=== PATIENT | female | born 1950 | race Caucasian/White ===

== ENCOUNTER 2018-03-17 05:33 | Day surgery (SDC) | payer MEDICARE, SELFPAY ==
[2018-03-17 06:10] VITALS: BP 135/83; PULSE 77; RESP 16; TEMP 36.4; O2SAT 95; BMI 29.2
--- NOTE | 2018-03-17 06:49 | COLBX_PTH ---
PATIENT: GREER WEBB LOC: EN U#:[id number] AGE/SX: 67/F ROOM: RE03/17/[address]: Dr. Ellis Okeefe MD : 1950 BED: DIS: 03/17/2018 SPEC #: [id number] RECD: 03/17/18 13:26 STATUS: ADAMARIS CYNTHIA #: [id number] ISHAN: 03/17/18 06:[address]: Ellis Okeefe DEPT: SURGICAL PATHOLOGY RECD BY: Trevin Hernandez ENTERED: 03/17/18 13:47 SP TYPE: COLON BX OTHR DR: Dr. Mike Mai MD Tissues: Rectum, NOS Procedures: Surgery Specimen Level IV HEADER OPERATION: Colonoscopy with biopsy PRE-OP DIAGNOSIS: Screening TISSUE SUBMITTED: Biopsy polyp rectum MICROSCOPIC DIAGNOSIS Polyp rectum, biopsy: Fragments of hyperplastic polyp. SJ:marion 03/18/18 MICROSCOPIC DESCRIPTION Slides are reviewed. GROSS DESCRIPTION Received in fixative is one container labeled with the patient's name and designated biopsy polyp rectum. The specimen consists of two irregular fragments of light liu soft tissue that in aggregate measure 0.6 x 0.3 x 0.1 cm. The specimen is totally submitted in one cassette. / SJ:marion 03/17/18 TC:1 CPT: 60078
--- NOTE | 2018-03-17 06:56 | PCM.OPRPT ---
Problem List (1) Personal history of colonic polyps Status: Acute (2) Family history of colon cancer in father Status: Acute Report of Operation Date of Procedure: 03/17/18 Pre-Operative Diagnosis: Personal history of colon polyps, family history of colon cancer in her father Post-Operative Diagnosis: Pancolonic diverticulosis, diminutive sessile polyp of the rectum Surgery/Procedure Performed:: Colonoscopy with cold forcep polypectomy Description of Surgical Findings:: Timeout and informed consent was obtained. 67-year-old female was taken to the endoscopy suite. She was placed in a left lateral decubitus position. Throughout the procedure in aliquots she received a total of 80 mg Demerol and 3.5 mg of Versed as intravenous sedation. Digital rectal exam performed. Normal anal tone. Mild hemorrhoidal changes. No mass lesions. Flexible colonoscope inserted the rectum advanced through a tortuous sigmoid colon was then nicely advanced to the transverse colon. By placing the patient supine and using transabdominal pressure the scope was advanced to the cecum. Bowel prep was quite good. The cecum ileocecal valve was nicely achieved. The scope was carefully withdrawn from the ascending transverse descending and sigmoid colon. Pancolonic scattered diverticulosis was identified with more concentrated diverticulosis of the sigmoid. No evidence of acute inflammatory change. The scope was withdrawn to the rectum where diminutive 4 mm sessile polyp identified. Cold forceps was used to sample and eradicate this lesion. The scope was retroflexed. Anorectal verge inspected. Some mild internal hemorrhoids noted. No active inflammation. The scope was placed back in in antegrade viewing position. Excess fluid and air was aspirated free. The procedure was completed with the patient tolerating it well. Impression Pancolonic diverticulosis. More extensive diverticulosis of the sigmoid Diminutive sessile polyp of the rectum Previous colonoscopy suspected to be 5 years ago. Next colonoscopy pending pathology is recommended in 5 years. Cc: Dr. Mai Medications were given 0629. The procedure was started 0632. The cecum was reached at 0639. The procedure was completed at 0652. Ellis Okeefe M.D., F.A.C.S. Type of Anesthesia:: IV Sedation
[2018-03-17 07:00] VITALS: BP 103/53; BP 135/83; PULSE 77; RESP 18; TEMP 36.4; O2SAT 92
[2018-03-17 07:05] VITALS: BP 135/83; BP 91/51; PULSE 67; RESP 18; O2SAT 92
[2018-03-17 07:10] VITALS: BP 109/59; BP 135/83; PULSE 71; RESP 18; O2SAT 93
[2018-03-17 07:16] VITALS: BP 111/54; BP 135/83; PULSE 71; RESP 18; TEMP 36.3; O2SAT 94
== END 2018-03-17 07:40 | disposition home or self-care (01) ==
LOC: EN 05:33 → AC 05:34
PROVIDERS: Family Provider Internal Medicine; PCP Internal Medicine; Visit Provider Surgery
PROC: 0DJD8ZZ Inspection of Lower Intestinal Tract, Via Natural or Artificial Opening Endoscopic (ICD-10-PCS; CPT 45378; principal; 2018-03-17 06:25)
DX: Z12.11 Encounter for screening for malignant neoplasm of colon (principal); K62.1 Rectal polyp; K57.30 Diverticulosis of large intestine without perforation or abscess without bleeding; J44.9 Chronic obstructive pulmonary disease, unspecified; I10 Essential (primary) hypertension; Z79.84 Long term (current) use of oral hypoglycemic drugs; Z79.82 Long term (current) use of aspirin; Z79.899 Other long term (current) drug therapy; I25.2 Old myocardial infarction; Z96.652 Presence of left artificial knee joint; Z86.010 Personal history of colon polyps; Z86.73 Personal history of transient ischemic attack (TIA), and cerebral infarction without residual deficits; Z80.0 Family history of malignant neoplasm of digestive organs
CPT/HCPCS: 45380; 88305; 99152; 99153; J7120

== ENCOUNTER → 2022-04-19 | Outpatient (CLI) | payer MEDICARE, SELFPAY ==
[2022-04-19 12:36] LABS: Basophil# 0.06 X10^3/uL; Basophil% 0.7 % (0-1); Eosinophil# 0.18 X10^3/uL; Eosinophils% 2.1 % (0-5); Hematocrit 41.1 % (37-47); Hemoglobin 13.4 g/dL (12.0-15.0); Lymphocyte % 21.7 % (19-41); Mean Corp Hgb Conc 32.6 g/dL (32-36); Mean Corpuscular Hgb 32.6 pg (27.0-32.0); Mean Platelet Vol. 11.1 fl (6.2-12.0); Monocyte# 0.57 X10^3/uL; Monocyte% 6.5 % (0-10); NRBC Flagged by Analyzer 0 % (0-5); Neutrophil # 6.04 X10^3/uL (2.7-7.7); Neutrophil % 68.8 % (47-70); Platelet Count 242 K/mm3 (150-450); RBC Distribution Width CV 12.5 % (11.6-14.6); RBC Distribution Width SD 45.8 fl (35.1-43.9); Red Blood Count 4.11 M/mm3 (4.2-5.4); White Blood Count 8.8 K/mm3 (4.4-11.0)
[2022-04-19 12:43] LABS: Erythrocyte Sedimentation Rate 18 mm/hr (0-30)
[2022-04-19 13:26] LABS: AST(SGOT) 19 U/L (15-37); Alanine Aminotransfer ALT/SGPT 21 U/L (13-56); Albumin, Serum 3.6 g/dL (3.2-5.0); Alkaline Phosphatase 66 U/L (45-117); Anion Gap 4 (5-15); BUN 23 mg/dL (7-18); BUN/Creat Ratio 36.9 RATIO (10-20); CRP < 2.90 mg/L (0.0-3.0); Calcium,Total 9.2 mg/dL (8.5-10.1); Chloride 109 mmol/L (98-107); Creatinine, Serum 0.62 mg/dL (0.55-1.02); EST Glomerular Filtration Rate 100 mL/min (>60); Est Glom Filt Rate - Afr Amer 121 mL/min (>60); Globulin 3.5 g/dL (2.2-4.2); Glucose 141 mg/dL (74-106); LDH 192 U/L (84-246); Potassium 4.1 mmol/L (3.5-5.1); Protein, Total 7.1 g/dL (6.4-8.2); Sodium Level 140 mmol/L (136-145)
[2022-04-22 13:07] LABS: Anti-Centromere B Ab <0.2 AI (0.0-0.9); Anti-Chromatin <0.2 AI (0.0-0.9); Anti-Jo <0.2 AI (0.0-0.9); Anti-Scleroderma-70 AB <0.2 AI (0.0-0.9); RNP Ab <0.2 AI (0.0-0.9); SJOGREN'S Anti-SS-A test < 0.2 AI (0.0-0.9); SJOGREN'S Anti-SS-B test < 0.2 AI (0.0-0.9); Smith Ab <0.2 AI (0.0-0.9)
[2022-04-22 17:07] LABS: Endomysial Antibody IgA Negative (Negative)
[2022-04-23 13:49] LABS: Immunoglobulin A 122 mg/dL (64-422); t-Transglutaminase IgA <2 U/mL (0-3)
[2022-04-23 14:15] LABS: Anti-dsDNA Ab <1 IU/mL (0-9)
[2022-04-24 05:05] LABS: Albumin 3.8 g/dL (2.9-4.4); Alpha-1-Globulins 0.3 g/dL (0.0-0.4); Alpha-2-Globulins 0.9 g/dL (0.4-1.0); Cytoplasmic Ab (C-ANCA) <1:20 titer (Neg:<1:20); Gamma Globulin 0.9 g/dL (0.4-1.8); Immunoglobulin A 121 mg/dL (64-422); Immunoglobulin E 50 IU/mL (6-495); Immunoglobulin G 891 mg/dL (586-1602); Immunoglobulin M 139 mg/dL (26-217); PROEL- TOTAL PROTEIN 6.8 g/dL (6.0-8.5)
[2022-04-25 12:53] LABS: Perinuclear Ab (P-ANCA) <1:20 titer (Neg:<1:20)
== END | disposition home or self-care (01) ==
LOC: LAB 11:51
PROVIDERS: PCP Internal Medicine; Referring Provider Nurse Practitioner Adult Health; Visit Provider Nurse Practitioner Adult Health
DX: K57.90 Diverticulosis of intestine, part unspecified, without perforation or abscess without bleeding (principal); Z86.010 Personal history of colon polyps
CPT/HCPCS: 36415; 80053; 82784; 82785; 83516; 83615; 84165; 85025; 85652; 86140; 86225; 86235; 86255; 86256; 86334

== ENCOUNTER → 2022-04-23 | Outpatient (CLI) | payer MEDICARE, SELFPAY ==
[2022-04-27 08:19] LABS: Calprotectin, Stool 186 ug/g (0-120)
== END | disposition home or self-care (01) ==
LOC: LABSPEC 08:22
PROVIDERS: PCP Internal Medicine; Referring Provider Nurse Practitioner Adult Health; Visit Provider Nurse Practitioner Adult Health
DX: K57.90 Diverticulosis of intestine, part unspecified, without perforation or abscess without bleeding (principal)
CPT/HCPCS: 83630; 83993

== ENCOUNTER → 2022-05-30 | Outpatient (CLI) | payer MEDICARE, SELFPAY | END | disposition home or self-care (01) | LOC: LABSPEC 11:27 | PROVIDERS: PCP Internal Medicine; Referring Provider Obstetrics & Gynecology; Visit Provider Obstetrics & Gynecology | DX: R30.0 Dysuria (principal) | CPT/HCPCS: 87086 ==

== ENCOUNTER 2022-06-17 05:18 | Day surgery (SDC) | payer MEDICARE, SELFPAY ==
--- NOTE | 2022-06-17 | GASB_PTH ---
PATIENT: GREER WEBB LOC: EN U#:[id number] AGE/SX: 72/F ROOM: RE06/17/[address]: Dr. Ivan Espinoza DO : 1950 BED: DIS: 06/17/2022 SPEC #: [id number] RECD: 06/17/22 10:53 STATUS: ADAMARIS REBarbara #: [id number] ISHAN: 06/17/22 00:[address]: Ivan Espinoza DEPT: SURGICAL PATHOLOGY RECD BY: Bennie Barajas ENTERED: 06/17/22 10:54 SP TYPE: Gastric Bx OTHR DR: Dr. Mike Mai MD Tissues: A - Duodenum, NOS B - Gastric mucous membrane C - Esophageal mucous membrane D - Ileum, NOS E - COLON BIOPSY F - Rectum, NOS Procedures: Special Stain Group II Surgery Specimen Level IV Alcian Blue/PAS (control) HEADER OPERATION: Colonoscopy, EGD (MAC), biopsy, dilation PRE-OP DIAGNOSIS: Diverticular disease, dysphagia TISSUE SUBMITTED: A ? Duodenum biopsy, B ? Gastric body biopsy, C ? Distal esophagus biopsy, D ? Terminal ileum biopsy, E ? Random colonic biopsy, F ? Rectal polyp biopsy MICROSCOPIC DIAGNOSIS A. Duodenum, biopsy: Fragments of duodenal mucosa with mild nonspecific chronic inflammation and congestion. B. Gastric body, biopsy: Mild gastritis. See microscopic description and comment. C. 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 Chronic inflammation and changes consistent with gastroesophageal reflux disease. Negative for dysplasia. See comment. D. Terminal ileum, biopsy: Fragments of small intestinal mucosa, no pathologic diagnosis. E. Colon, random biopsy: Fragments of colonic mucosa, no pathologic diagnosis. F. Rectal polyp, biopsy: Hyperplastic polyp. SJ:marion 06/18/2022 COMMENT B. The results of immunohistochemistry for Helicobacter pylori will be reported separately ([id number]). C. Immunohistochemistry ([id number]) for P53 and Ki-67 will be performed and results will be reported separately. Alcian blue/PAS stain with matched control is used in the evaluation of the specimen. MICROSCOPIC DESCRIPTION Slides are reviewed. B. The specimen shows fragments of gastric mucosa with chronic inflammatory cell infiltrates in the lamina propria consisting of lymphocytes and plasma cells, consistent with mild chronic gastritis. GROSS DESCRIPTION A - Received in fixative is one container labeled with the patient's name and designated duodenum biopsy. The specimen consists of multiple irregular fragments of light liu soft tissue that in aggregate measure 0.4 x 0.4 x 0.1 cm. The specimen is totally submitted in one cassette. B - Received in fixative is one container labeled with the patient's name and designated gastric body biopsy. The specimen consists of multiple irregular fragments of light liu soft tissue that in aggregate measure 1 x 0.3 x 0.1 cm. The specimen is totally submitted in one cassette. C - Received in fixative is one container labeled with the patient's name and designated distal esophagus biopsy. The specimen consists of multiple irregular fragments of light liu soft tissue that in aggregate measure 1 x 0.4 x 0.1 cm. The specimen is totally submitted in one cassette. D - Received in fixative is one container labeled with the patient's name and designated terminal ileum. The specimen consists of multiple irregular fragments of light liu soft tissue that in aggregate measure 1 x 0.3 x 0.1 cm. The specimen is totally submitted in one cassette. E - Received in fixative is one container labeled with the patient's name and designated random colonic biopsy. The specimen consists of multiple irregular fragments of light liu soft tissue that in aggregate measure 1 x 0.5 x 0.1 cm. The specimen is totally submitted in one cassette. F - Received in fixative is one container labeled with the patient's name and designated rectal polyp biopsy. The specimen consists of one irregular fragment of light liu soft tissue that measures 0.2 x 0.2 x 0.1 cm. The specimen is totally submitted in one cassette. / SJ:rg 06/17/2022 TC:3 [facility]: [id number] x6, [id number]
[2022-06-17 05:52] VITALS: BP 143/70; PULSE 64; RESP 16; TEMP 36.2; O2SAT 98; BMI 30.2
[2022-06-17] MEDS: Lactated Ringers 1,000 ML 15 ML IV (06:13)
[2022-06-17 06:20] LABS: Bedside Glucose 143 mg/dL (74-106)
--- NOTE | 2022-06-17 06:30 | IMM_PTH ---
PATIENT: GREER WEBB LOC: EN U#:[id number] AGE/SX: 72/F ROOM: RE06/17/[address]: Dr. Ivan Espinoza DO : 1950 BED: DIS: 06/17/2022 SPEC #: [id number] RECD: 06/17/22 11:02 STATUS: ADAMARIS REBarbara #: [id number] ISHAN: 06/17/22 06:[address]: Ivan Espinoza DEPT: IMMUNOHISTOCHEMISTRY RECD BY: Lucinda Perales ENTERED: 06/17/22 11:02 SP TYPE: IMMUNO OTHR DR: Dr. Mike Mai MD Tissues: B - Stomach, NOS C - Esophagus, NOS Procedures: H Pylori (initial) P53 (initial) KI-67 (add) PHYSICIAN & INSTITUTION [place] [id number] SPECIMEN INFORMATION: Tissue Source: B ? Gastric body biopsy, C ? Distal esophagus biopsy Clinical Info: Diverticular disease, dysphagia Specimen Number: [id number] B & C CPT code: 28805 x2, 17354 METHODOLOGY: Deparaffinized sections of prefer/formalin-fixed tissue or PAP/DQ stained slides are incubated with monoclonal/polyclonal antibodies/oligonucleotide probes. Localization is made via biotin free immunoperoxidase method. Appropriate controls are performed and reacted as expected. Results on target cell population are indicated in the following table: RESULTS: ANTIBODY / CLONE RESULT Block B H Pylori (polyclonal) negative Block C P53 (DO-7) negative Ki-67 (30-9) positive, very low These tests were developed and their performance characteristics determined by [facility]. They may not have been cleared or approved by the U.S. Food and Drug Administration. The FDA has determined that such clearance or approval is not necessary. The above immunohistochemical/dualISH markers are ordered and reviewed by the Pathologist. INTERPRETATION: B. Gastric body, biopsy: Negative for Helicobacter pylori organisms. C. Distal esophagus, biopsy: Negative for dysplasia. SJ:marion 06/19/2022
--- NOTE | 2022-06-17 06:31 | HP.PCM_ITS ---
History and Physical Date of Admission: 06/17/22 GREER WEBB, is a 71 F who presents to the office today for recurrent diverticulitis.? She is accompanied by her friend Mila.? She has had 3 bouts of diverticulitis since becoming ill in mid December.? This started with abdominal pain and diarrhea in December 2021.? Prior to that she had had diverticulitis in 2012 at which time she was hospitalized for a week.? She has never had surgery for diverticulitis. During these bouts of diverticulitis she gets severe pain in the left lower quadrant.? She has been having intermittent constipation at which time she has pain in the mid lower abdomen.? She has been treating that with MiraLAX and senna.? She has had bouts of severe diarrhea, up to 25 bowel movements per day during the times of diarrhea.? No blood per rectum.? She has been on Metamucil which has firmed up the stool, bowels have been back to normal for 2 to 3 weeks now.? She no longer has abdominal pain.? She finally has energy back.? There were times when her upper abdomen felt unsettled and she had discomfort.? She has been doing the brat diet.? Her appetite was decreased while she was sick.? She has lost 10 pounds.? She does not feel constipated in general, but she was found to be constipated in the past when she was initially diagnosed with diverticulitis.? History of C. difficile colitis. CT 12/27/2021 mucosal thickening and perisigmoid fat stranding consistent with diverticulitis CT 02/11/2022 mucosal thickening and perisigmoid fat stranding consistent with di verticulitis 03/29/2022 C. difficile negative History of colon polyps.? Her last colonoscopy was in [address] Okeefe.? She had a hyperplastic polyp at that time.? Her father had colon cancer. 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 ROS Const Constitutional: Positive for weakness; No fatigue ENT ENT: No difficulty swallowing Gastro GI: Positive for constipation; No abdominal pain, belching, bloating, change in bowel habits, change in stool character, coffee ground emesis, cramping, diarrhea, heartburn, difficulty swallowing, feeling full early, excessive flatus, incontinent of stools, Vomiting blood/hematemesis, Blood in stool, loose stools, Black,tarry stools, nausea/dyspepsia, pain with swallowing, vomiting or other Musc Musculoskeletal: Positive for Arthritis; No joint pain Skin Skin: No yellowing of the eye or itchy eyes Neuro Neurology: Positive for weakness Psych Psychiatric: No anxiety and No depression Endo Endocrine: No fatigue Aller/Imm Allergy/Immunologic: No itchy eyes Musa/Lymp Hematologic/Lymphatic: No easy bleeding or easy bruising Exam Const General: cooperative, comfortable and well developed Nutritional Appearance: overweight Orientation: alert, awake and oriented x3 HENMT Head: normal to inspection Eyes General: appearance normal, both eyes and all related structures GI Inspection: normal to inspection Palpation: soft, no hepatosplenomegaly, no masses and nontender Skin General: no jaundice Neuro Speech: speech normal Gait: normal gait Quality Reporting Tobacco Screening ([facility] 138) Smoking Status: Never smoker Assessment and Plan Assessment and Plan (1) Diverticular disease: ?Status:?Acute ?Plan: 71-year-old female with recurrent diverticular disease.? We will do biochemical work-up to evaluate for inflammatory bowel disease.? We discussed diverticular disease, SCAD--segmental colitis associated with diverticulosis.? We will attempt to manage this medically rather than surgically.? Discussed management of possible underlying constipation.? Case discussed with Dr. Espinoza.? Will have her start mesalamine if covered by insurance.? We will get her scheduled for colonoscopy.? I will call her with lab results.? We will look at her CT images from [place]. ? ? ? Orders: Orders Comprehensive Metabolic Profil Today K57.90 - Diverticulosis of intestine, part unspecified, without perforation or abscess without bleeding ? CRP Today K57.90 - Diverticulosis of intestine, part unspecified, without perforation or abscess without bleeding ? LDH Today K57.90 - Diverticulosis of intestine, part unspecified, without perforation or abscess without bleeding ? CBC W/Diff, Automated Today K57.90 - Diverticulosis of intestine, part unspecified, without perforation or abscess without bleeding, Z86.010 - Personal history of colonic polyps ? Erythrocyte Sed Rate Today K57.90 - Diverticulosis of intestine, part unspecified, without perforation or abscess without bleeding ? SIMI Comprehensive Panel Today K57.90 - Diverticulosis of intestine, part unspecified, without perforation or abscess without bleeding ? Calprotectin, Stool Today K57.90 - Diverticulosis of intestine, part unspecified, without perforation or abscess without bleeding ? Stool Lactoferrin/WBC Today K57.90 - Diverticulosis of intestine, part unspecified, without perforation or abscess without bleeding ? ANCA Today K57.90 - Diverticulosis of intestine, part unspecified, without perforation or abscess without bleeding ? Celiac Disease Profile Today K57.90 - Diverticulosis of intestine, part unspecified, without perforation or abscess without bleeding ? Immunoglobulins G/A/M/E Today K57.90 - Diverticulosis of intestine, part unspecified, without perforation or abscess without bleeding ? BORA + Protein Elect, Serum Today K57.90 - Diverticulosis of intestine, part unspecified, without perforation or abscess without bleeding ? I have re-examined the patient. There are no clinical changes since date of exam.
[2022-06-17 07:11] VITALS: BP 121/71; BP 143/70; PULSE 71; RESP 16; TEMP 36.7; O2SAT 95
[2022-06-17 07:15] VITALS: BP 127/70; BP 143/70; PULSE 67; RESP 16; O2SAT 94
--- NOTE | 2022-06-17 07:15 | OP.CCLET_ITS ---
06/17/2022 Mike Mai Re : Upper GI endoscopy procedure for Lyle Cabrera Dear Sergei This procedure was performed on Friday, June 17, 2022. My impressions and recommendations are as follows: Impressions : - LA Grade A reflux esophagitis. Biopsied. - Moderate Schatzki ring. Dilated. - Small hiatal hernia. - Erythematous mucosa in the gastric body. Biopsied. - Erythematous duodenopathy. Biopsied. Recommendations : - Discharge patient to home. - Resume previous diet. - Continue present medications. - Await pathology results. My findings are described in the full procedure note, which is enclosed. If I can be of further assistance, please feel free to contact me at . Sincerely, Ivan Espinoza, 06/17/2022 7:14:04 AM This report has been signed electronically.
--- NOTE | 2022-06-17 07:15 | OP.EGD_ITS ---
Patient Name: Lyle Cabrera Procedure Date: 06/17/2022 6:18 AM Date of : 1950 Age: 72 Procedure: Upper GI endoscopy Indications: Functional Dyspepsia, Dysphagia Providers: Ivan Espinoza DO Referring MD: Mike Mai Medicines: Monitored Anesthesia Care Patient Profile: This is a 72 year old female. Refer to note in patient chart for documentation of history and physical. Patient has symptoms of dysphagia with both liquids and solids. Complications: No immediate complications. Procedure: Pre-Anesthesia Assessment: - Prior to the procedure, a History and Physical was performed, and patient medications and allergies were reviewed. The risks and benefits of the procedure and the sedation options and risks were discussed with the patient. All questions were answered and informed consent was obtained. Patient identification and proposed procedure were verified by the physician in the pre-procedure area. Mental Status Examination: alert and oriented. Airway Examination: normal oropharyngeal airway and neck mobility. Respiratory Examination: clear to auscultation. CV Examination: normal. Prophylactic Antibiotics: The patient does not require prophylactic antibiotics. Prior Anticoagulants: The patient has taken no previous anticoagulant or antiplatelet agents. ASA Grade Assessment: II - A patient with mild systemic disease. After reviewing the risks and benefits, the patient was deemed in satisfactory condition to undergo the procedure. The anesthesia plan was to use moderate sedation / analgesia (conscious sedation). Immediately prior to administration of medications, the patient was re-assessed for adequacy to receive sedatives. The heart rate, respiratory rate, oxygen saturations, blood pressure, adequacy of pulmonary ventilation, and response to care were monitored throughout the procedure. The physical status of the patient was re-assessed after the procedure. After obtaining informed consent, the endoscope was passed under direct vision. Throughout the procedure, the patient's blood pressure, pulse, and oxygen saturations were monitored continuously. The colonoscope was introduced through the mouth, and advanced to the second part of duodenum. The upper GI endoscopy was accomplished without difficulty. The patient tolerated the procedure well. Scope In: 6:40:11 AM Scope Out: 6:48:39 AM Total Procedure Duration Time 0 hours 8 minutes 28 seconds Findings: LA Grade A (one or more mucosal breaks less than 5 mm, not extending between tops of 2 mucosal folds) esophagitis with no bleeding was found 36 to 38 cm from the incisors. Biopsies were taken with a cold forceps for histology. Verification of patient identification for the specimen was done. Estimated blood loss was minimal. A moderate Schatzki ring was found in the lower third of the esophagus. A guidewire was placed and the scope was withdrawn. Dilation was performed with a Savary dilator with no resistance at 54 Fr. The dilation site was examined and showed moderate improvement in luminal narrowing. Estimated blood loss was minimal. A small hiatal hernia was present. Patchy erythematous mucosa without bleeding was found in the gastric body. Biopsies were taken with a cold forceps for histology. Verification of patient identification for the specimen was done. Estimated blood loss was minimal. Patchy mildly erythematous mucosa without active bleeding and with no stigmata of bleeding was found in the first portion of the duodenum. Biopsies were taken with a cold forceps for histology. Verification of patient identification for the specimen was done. Estimated blood loss was minimal. Impression: - LA Grade A reflux esophagitis. Biopsied. - Moderate Schatzki ring. Dilated. - Small hiatal hernia. - Erythematous mucosa in the gastric body. Biopsied. - Erythematous duodenopathy. Biopsied. Recommendation: - Discharge patient to home. - Resume previous diet. - Continue present medications. - Await pathology results. Procedure Code(s): --- Professional --- 39123, Esophagogastroduodenoscopy, flexible, transoral; with insertion of guide wire followed by passage of dilator(s) through esophagus over guide wire 43283, 59,51, Esophagogastroduodenoscopy, flexible, transoral; with biopsy, single or multiple CPT copyright 2017 [employer]. All rights reserved. The codes documented in this report are preliminary and upon creative arts music therapist review may be revised to meet current compliance requirements. Ivan Espinoza DO 06/17/2022 7:14:04 AM This report has been signed electronically. Number of Addenda: 0 Note Initiated On: 06/17/2022 6:18 AM
[2022-06-17 07:20] VITALS: BP 125/67; BP 143/70; PULSE 65; RESP 16; O2SAT 92
[2022-06-17 07:26] VITALS: BP 127/78; BP 143/70; PULSE 67; RESP 16; TEMP 36.7; O2SAT 95
--- NOTE | 2022-06-17 07:38 | OP.COLON_ITS ---
Patient Name: Lyle Cabrera Procedure Date: 06/17/2022 6:49 AM Date of : 1950 Age: 72 Procedure: Colonoscopy Indications: Generalized abdominal pain, Clinically significant diarrhea of unexplained origin Providers: Ivan Espinoza DO Referring MD: Mike Mai Medicines: Monitored Anesthesia Care Patient Profile: This is a 72 year old female. Refer to note in patient chart for documentation of history and physical. Patient has symptoms of dysphagia with both liquids and solids. Last Colonoscopy: date unknown. Unable to locate last colonoscopy report. Complications: No immediate complications. Procedure: Pre-Anesthesia Assessment: - Prior to the procedure, a History and Physical was performed, and patient medications and allergies were reviewed. The risks and benefits of the procedure and the sedation options and risks were discussed with the patient. All questions were answered and informed consent was obtained. Patient identification and proposed procedure were verified by the physician in the pre-procedure area. Mental Status Examination: alert and oriented. Airway Examination: normal oropharyngeal airway and neck mobility. Respiratory Examination: clear to auscultation. CV Examination: normal. Prophylactic Antibiotics: The patient does not require prophylactic antibiotics. Prior Anticoagulants: The patient has taken no previous anticoagulant or antiplatelet agents. ASA Grade Assessment: II - A patient with mild systemic disease. After reviewing the risks and benefits, the patient was deemed in satisfactory condition to undergo the procedure. The anesthesia plan was to use moderate sedation / analgesia (conscious sedation). Immediately prior to administration of medications, the patient was re-assessed for adequacy to receive sedatives. The heart rate, respiratory rate, oxygen saturations, blood pressure, adequacy of pulmonary ventilation, and response to care were monitored throughout the procedure. The physical status of the patient was re-assessed after the procedure. After I obtained informed consent, the scope was passed under direct vision. Throughout the procedure, the patient's blood pressure, pulse, and oxygen saturations were monitored continuously. The colonoscope was introduced through the anus and advanced to the terminal ileum. The terminal ileum, ileocecal valve, appendiceal orifice, and rectum were photographed. Scope In: 6:50:55 AM Scope Withdrawal Time 0 hours 10 minutes 5 seconds Scope Out: 7:04:11 AM Total Procedure Duration Time 0 hours 13 minutes 16 seconds Findings: The perianal and digital rectal examinations were normal. A 5 mm polyp was found in the rectum. The polyp was sessile. The polyp was removed with a cold biopsy forceps. Resection and retrieval were complete. Verification of patient identification for the specimen was done. Estimated blood loss was minimal. A few small and large-mouthed diverticula were found in the recto-sigmoid colon, sigmoid colon and descending colon. There was no evidence of diverticular bleeding. An area of mildly congested mucosa was found in the sigmoid colon, in the transverse colon and in the ascending colon. Biopsies were taken with a cold forceps for histology. Verification of patient identification for the specimen was done. Estimated blood loss was minimal. The terminal ileum appeared normal. Biopsies were taken with a cold forceps for histology. Verification of patient identification for the specimen was done. Estimated blood loss was minimal. Impression: - One 5 mm polyp in the rectum, removed with a cold biopsy forceps. Resected and retrieved. - Diverticulosis in the recto-sigmoid colon, in the sigmoid colon and in the descending colon. There was no evidence of diverticular bleeding. - Congested mucosa in the sigmoid colon, in the transverse colon and in the ascending colon. Biopsied. - The examined portion of the ileum was normal. Biopsied. Recommendation: - Discharge patient to home. - Resume previous diet. - Continue present medications. - Await pathology results. - Repeat colonoscopy in 5 years for surveillance based on pathology results. Procedure Code(s): --- Professional --- 76964, Colonoscopy, flexible; with biopsy, single or multiple CPT copyright 2017 [employer]. All rights reserved. The codes documented in this report are preliminary and upon instrument repairer steam plant review may be revised to meet current compliance requirements. Ivan Espinoza DO 06/17/2022 7:38:03 AM This report has been signed electronically. Number of Addenda: 0 Note Initiated On: 06/17/2022 6:49 AM
--- NOTE | 2022-06-17 07:38 | OP.CCLET_ITS ---
06/17/2022 Mike Mai Re : Colonoscopy procedure for Lyle Cabrera Dear Sergei This procedure was performed on Friday, June 17, 2022. My impressions and recommendations are as follows: Impressions : - One 5 mm polyp in the rectum, removed with a cold biopsy forceps. Resected and retrieved. - Diverticulosis in the recto-sigmoid colon, in the sigmoid colon and in the descending colon. There was no evidence of diverticular bleeding. - Congested mucosa in the sigmoid colon, in the transverse colon and in the ascending colon. Biopsied. - The examined portion of the ileum was normal. Biopsied. Recommendations : - Discharge patient to home. - Resume previous diet. - Continue present medications. - Await pathology results. - Repeat colonoscopy in 5 years for surveillance based on pathology results. My findings are described in the full procedure note, which is enclosed. If I can be of further assistance, please feel free to contact me at . Sincerely, Ivan Espinoza DO 06/17/2022 7:38:03 AM This report has been signed electronically.
[2022-06-17 08:05] VITALS: BP 143/70
== END 2022-06-17 08:06 | disposition home or self-care (01) ==
LOC: EN 05:19 → AC 05:20
PROVIDERS: PCP Internal Medicine; Referring Provider Internal Medicine; Visit Provider Internal Medicine Gastroenterology
PROC: 0DJD8ZZ Inspection of Lower Intestinal Tract, Via Natural or Artificial Opening Endoscopic (ICD-10-PCS; CPT 45378; principal; 2022-06-17 06:25)
DX: K29.70 Gastritis, unspecified, without bleeding (principal); E11.9 Type 2 diabetes mellitus without complications; K22.70 Barrett's esophagus without dysplasia; K62.1 Rectal polyp; K21.00 Gastro-esophageal reflux disease with esophagitis, without bleeding; K44.9 Diaphragmatic hernia without obstruction or gangrene; Z87.19 Personal history of other diseases of the digestive system; Z90.49 Acquired absence of other specified parts of digestive tract; E78.5 Hyperlipidemia, unspecified; I10 Essential (primary) hypertension; Z79.84 Long term (current) use of oral hypoglycemic drugs; Z79.82 Long term (current) use of aspirin; Z79.899 Other long term (current) drug therapy; M51.26 Other intervertebral disc displacement, lumbar region; K59.00 Constipation, unspecified; K22.2 Esophageal obstruction; K57.30 Diverticulosis of large intestine without perforation or abscess without bleeding
CPT/HCPCS: 43239; 43248; 45380; 82962; 88305; 88313; 88341; 88342; J7120; C1769; J2405

== ENCOUNTER 2023-06-24 10:12 | Day surgery (SDC) | payer MEDICARE, SELFPAY ==
[2023-06-24] VITALS (7 sets, daily range): BP systolic 111–139; BP diastolic 60–70; PULSE 63–79; RESP 16–18; TEMP 36.4–36.6; O2SAT 89–100; BMI 32.5
[2023-06-24] MEDS: Lactated Ringers 1,000 ML 15 ML IV (10:37)
[2023-06-24 10:58] LABS: Bedside Glucose 150 mg/dL (74-106)
--- NOTE | 2023-06-24 11:23 | PCM.HP.BLA ---
History and Physical Date of Admission: 06/24/23 72 F who presents to the office today for 2 month f/u SCAD, Rosenthal's. She is doing very well now, she has no GI complaints at this time. SCAD (segmental colitis associated with diverticular disease)??she is successfully titrated off mesalamine; she took mesalamine 2.4 g daily for approximately 2 months, then 1.2 g daily for 1 month. She continues to do very well since discontinuing the mesalamine. Bowels are moving very well, doesn't need anything like fiber or miralax. No abdominal pain. Her symptoms started with abdominal pain and diarrhea in December 2021.? She had 3 bouts of diverticulitis since becoming ill in mid December and establishing with us in April 2022. Prior to that she had had diverticulitis in 2012 at which time she was hospitalized for a week.?She recalls having C diff colitis then too. She has never had surgery for diverticulitis. Workup 04/2022 revealed elevated stool calprotectin, normal inflammatory markers, negative SIMI-comprehensive. She continues on a daily probiotic for history of C. difficile. June 2022 colonoscopy showed diverticula, one hyperplastic polyp; repeat colonoscopy in 5 yrs (June 2027). Her father had colon cancer. Rosenthal's esophagus??On EGD in 06/2022 she had a hiatal hernia, Schatzki ring that was dilated, Rosenthal's w/o dysplasia. She is completing 2 months of pantoprazole 40 mg twice daily, then she will continue on pantoprazole 40 mg every morning indefinitely. Plan is to repeat EGD in June 2023. She has not had any further dysphagia. CT 12/27/2021 mucosal thickening and perisigmoid fat stranding consistent with diverticulitis CT 02/11/2022 mucosal thickening and perisigmoid fat stranding consistent with diverticulitis 03/29/2022 C. difficile negative ROS Const Constitutional: No fatigue ENT ENT: No difficulty swallowing Gastro GI: No abdominal pain, belching, bloating, change in bowel habits, change in stool character, coffee ground emesis, constipation, cramping, diarrhea, heartburn, difficulty swallowing, feeling full early, excessive flatus, incontinent of stools, Vomiting blood/hematemesis, Blood in stool, loose stools, Black,tarry stools, nausea/dyspepsia, pain with swallowing, vomiting or other Musc Musculoskeletal: No joint pain Skin Skin: No yellowing of the eye or itchy eyes Psych Psychiatric: No anxiety and No depression Endo Endocrine: No fatigue Aller/Imm Allergy/Immunologic: No itchy eyes Musa/Lymp Hematologic/Lymphatic: No easy bleeding or easy bruising Exam Const General: cooperative, healthy appearing and comfortable Orientation: alert, awake and oriented x3 Quality Reporting Tobacco Screening ([facility] 138) Smoking Status: Never smoker Assessment and Plan Assessment and Plan (1) Segmental colitis associated with diverticulosis: Status: Acute Plan: We reviewed diagnoses of diverticulitis, SCAD. Recommendation is to keep the bowels moving well, prevent constipation in order to prevent recurrence of diverticulitis. ScaD was successfully treated with a course of mesalamine. She will be due for colonoscopy in June 2027. Continue daily probiotic because of history of C. difficile colitis. (2) Rosenthal's esophagus: Status: Acute Plan: Continue pantoprazole 40 mg every morning indefinitely because of hiatal hernia, reflux esophagitis, and Rosenthal's esophagus without dysplasia. Plan is to repeat EGD in June 2023 with office follow-up 2 weeks later. I have examined the patient and the H&P has been reviewed. There are no clinical changes since date of exam.
--- NOTE | 2023-06-24 11:30 | EGD_PTH ---
PATIENT: GREER WEBB LOC: EN U#:[id number] AGE/SX: 73/F ROOM: RE06/24/[address]: Dr. Ivan Espinoza DO : 1950 BED: DIS: 06/24/2023 SPEC #: [id number] RECD: 06/24/23 14:18 STATUS: ADAMARIS CYNTHIA #: [id number] ISHAN: 06/24/23 11:[address]: Ivan Espinoza DEPT: SURGICAL PATHOLOGY RECD BY: Lexy Brizuela ENTERED: 06/25/23 08:31 SP TYPE: EGD BIOPSY MADISON DR: Dr. Mike Mai MD Tissues: Esophagus, NOS Procedures: Special Stain Group II Surgery Specimen Level IV Alcian Blue/PAS (control) HEADER OPERATION: EGD ([facility]), biopsy PRE-OP DIAGNOSIS: Rosenthal's esophagus TISSUE SUBMITTED: Distal esophagus biopsy MICROSCOPIC DIAGNOSIS Distal esophagus, biopsy: Gastroesophageal junctional mucosa with mild chronic inflammation. Focal changes of reflux. No evidence of goblet cell metaplasia. See comment. AM:marion 06/26/2023 COMMENT Alcian blue/PAS stain with matched control supports the above diagnosis. MICROSCOPIC DESCRIPTION Slides are reviewed. GROSS DESCRIPTION Received in fixative is one container labeled with the patient's name and designated distal esophagus. The specimen consists of multiple irregular fragments of light liu soft tissue that in aggregate measure 0.7 x 0.7 x 0.1 cm. The specimen is totally submitted in one cassette. / AM:marion 06/25/2023 TC:3 CPT: 23119, 52183
--- NOTE | 2023-06-24 11:38 | OP.CCLET_ITS ---
06/24/2023 Mike Mai Re : Upper GI endoscopy procedure for Lyle Cabrera Dear Sergei This procedure was performed on Saturday, June 24, 2023. My impressions and recommendations are as follows: Impressions : - Esophageal mucosal changes suspicious for Rosenthal's esophagus. Biopsied. - Small hiatal hernia. - No gross lesions in the second portion of the duodenum. Recommendations : - Discharge patient to home. - Resume previous diet. - Continue present medications. - Await pathology results. My findings are described in the full procedure note, which is enclosed. If I can be of further assistance, please feel free to contact me at . Sincerely, Ivan Espinoza, 06/24/2023 11:38:05 AM This report has been signed electronically.
--- NOTE | 2023-06-24 11:38 | OP.EGD_ITS ---
Patient Name: Lyle Cabrera Procedure Date: 06/24/2023 11:12 AM Date of : 1950 Age: 73 Procedure: Upper GI endoscopy Indications: Rosenthal's esophagus, Follow-up of Rosenthal's esophagus Providers: Ivan Espinoza DO Referring MD: Mike Mai Medicines: Monitored Anesthesia Care Patient Profile: This is a 73 year old female. Refer to note in patient chart for documentation of history and physical. Patient has symptoms of chronic heartburn. Complications: No immediate complications. Procedure: Pre-Anesthesia Assessment: - Prior to the procedure, a History and Physical was performed, and patient medications and allergies were reviewed. The risks and benefits of the procedure and the sedation options and risks were discussed with the patient. All questions were answered and informed consent was obtained. Patient identification and proposed procedure were verified by the physician. Mental Status Examination: normal. Respiratory Examination: clear to auscultation. Prophylactic Antibiotics: The patient does not require prophylactic antibiotics. Prior Anticoagulants: The patient has taken no anticoagulant or antiplatelet agents. After reviewing the risks and benefits, the patient was deemed in satisfactory condition to undergo the procedure. The anesthesia plan was to use monitored anesthesia care (MAC). Immediately prior to administration of medications, the patient was re-assessed for adequacy to receive sedatives. The heart rate, respiratory rate, oxygen saturations, blood pressure, adequacy of pulmonary ventilation, and response to care were monitored throughout the procedure. The physical status of the patient was re-assessed after the procedure. After obtaining informed consent, the endoscope was passed under direct vision. Throughout the procedure, the patient's blood pressure, pulse, and oxygen saturations were monitored continuously. The gastroscope was introduced through the mouth, and advanced to the second part of duodenum. The upper GI endoscopy was accomplished without difficulty. The patient tolerated the procedure well. Scope In: 11:29:21 AM Scope Out: 11:32:16 AM Total Procedure Duration Time 0 hours 2 minutes 55 seconds Findings: There were esophageal mucosal changes suspicious for Rosenthal's esophagus present in the lower third of the esophagus. The maximum longitudinal extent of these mucosal changes was 1 cm in length. Mucosa was biopsied with a cold forceps for histology in a targeted manner at intervals of 1 cm in the lower third of the esophagus. One specimen bottle was sent to pathology. Verification of patient identification for the specimen was done. Estimated blood loss was minimal. A small hiatal hernia was present. The cardia and gastric fundus were normal on retroflexion. No gross lesions were noted in the second portion of the duodenum. Impression: - Esophageal mucosal changes suspicious for Rosenthal's esophagus. Biopsied. - Small hiatal hernia. - No gross lesions in the second portion of the duodenum. Recommendation: - Discharge patient to home. - Resume previous diet. - Continue present medications. - Await pathology results. Procedure Code(s): --- Professional --- 90107, Esophagogastroduodenoscopy, flexible, transoral; with biopsy, single or multiple CPT copyright 2021 [employer]. All rights reserved. The codes documented in this report are preliminary and upon laceworker review may be revised to meet current compliance requirements. Ivan Espinoza DO 06/24/2023 11:38:05 AM This report has been signed electronically. Number of Addenda: 0 Note Initiated On: 06/24/2023 11:12 AM
== END 2023-06-24 12:23 | disposition home or self-care (01) ==
LOC: EN 10:12 → AC 10:13
PROVIDERS: PCP Internal Medicine; Referring Provider Internal Medicine; Visit Provider Internal Medicine Gastroenterology
PROC: 0DJ08ZZ Inspection of Upper Intestinal Tract, Via Natural or Artificial Opening Endoscopic (ICD-10-PCS; CPT 43235; principal; 2023-06-24 11:25)
DX: K44.9 Diaphragmatic hernia without obstruction or gangrene (principal); E11.9 Type 2 diabetes mellitus without complications; K22.70 Barrett's esophagus without dysplasia; Z80.0 Family history of malignant neoplasm of digestive organs; K57.30 Diverticulosis of large intestine without perforation or abscess without bleeding; K21.9 Gastro-esophageal reflux disease without esophagitis; E78.5 Hyperlipidemia, unspecified; I10 Essential (primary) hypertension; Z96.652 Presence of left artificial knee joint; Z90.710 Acquired absence of both cervix and uterus; Z90.49 Acquired absence of other specified parts of digestive tract
CPT/HCPCS: 43239; 82962; 88305; 88313; J7120; J2405

== ENCOUNTER → 2024-05-25 | Outpatient (CLI) | payer MEDICARE, SELFPAY ==
--- NOTE | 2024-05-25 09:11 | CT_ITS ---
STUDY: CT ABDOMEN AND PELVIS WITH CONTRAST REASON FOR EXAM: Female, 74 years old. Diverticulitis RADIATION DOSAGE (If Supplied By Facility): CTDIvol = ( 9.61 ) mGy, DLP = ( 761.67 ) mGycm TECHNIQUE: Transaxial images were obtained from the dome of the diaphragm to the symphysis pubis without oral contrast. IV 100mL Isovue-300 was administered. Sagittal and coronal images were reconstructed. Individualized dose optimization techniques were used for this CT. COMPARISON: None. FINDINGS: Minimal increased linear markings at the lung bases suggestive of atelectasis. Minimal degree of anterior pericardial thickening. There is decreased attenuation of the liver consistent with steatosis. The patient is status post cholecystectomy. Normal spleen. Normal pancreas. Normal bilateral adrenal glands. Normal right kidney. Normal left kidney. Normal visualized stomach. Normal small intestine. There is diverticulosis, with thickening of the colon wall, and pericolonic inflammation changes consistent with acute diverticulitis. The appendix is visualized and appears normal. There is diffuse atherosclerotic calcification of the abdominal aorta, without a demonstrated aneurysm. Normal inferior vena cava. Normal retroperitoneum. Normal urinary bladder. Normal abdominal wall. There are diffuse degenerative changes of the visualized lumbar spine. CT/Abdomen/Pelvis WITH Contrast IMPRESSION: There is evidence of sigmoid diverticulitis with sigmoid diverticulosis and thickening of the surrounding mesentery and colonic wall with inflammatory changes.. Fatty position of the liver. Status post cholecystectomy. Electronically Signed: Billy Dong MD at 12:10 EDT ,
[2024-05-25 09:22] LABS: Absolute Lymphocyte Count 1.16 X10^3/uL (0.83-4.51); Absolute Neutrophil Count 5.5 X10^3/uL (2.0-7.7); Basophil# 0.03 X10^3/uL; Basophil% 0.4 % (0-1); Eosinophil# 0.09 X10^3/uL; Eosinophils% 1.2 % (0-5); Hematocrit 41.5 % (37-47); Hemoglobin 13.4 g/dL (12.0-15.0); Lymphocyte # 1.16 X10^3/ul (0.83-4.51); Lymphocyte % 15.6 % (19-41); Mean Corp Hgb Conc 32.3 g/dL (32-36); Mean Platelet Vol. 10.6 fl (6.2-12.0); Monocyte# 0.68 X10^3/uL; Monocyte% 9.1 % (0-10); NRBC Flagged by Analyzer 0 % (0-5); Neutrophil # 5.46 X10^3/uL (2.7-7.7); Neutrophil % 73.3 % (47-70); Platelet Count 258 K/mm3 (150-450); RBC Distribution Width CV 11.6 % (11.6-14.6); RBC Distribution Width SD 42.4 fl (35.1-43.9); Red Blood Count 4.19 M/mm3 (4.2-5.4); White Blood Count 7.5 K/mm3 (4.4-11.0)
[2024-05-25 09:24] LABS: Erythrocyte Sedimentation Rate 26 mm/hr (0-30)
[2024-05-25 09:51] LABS: ALB/GLOB Ratio 0.7 RATIO (0.9-2.4); AST(SGOT) 18 U/L (15-37); Alanine Aminotransfer ALT/SGPT 18 U/L (13-56); Albumin, Serum 3.2 g/dL (3.2-5.0); Alkaline Phosphatase 85 U/L (45-117); Anion Gap 5 (5-15); BUN 28 mg/dL (7-18); BUN/Creat Ratio 31.6 RATIO (10-20); Calcium,Total 9.6 mg/dL (8.5-10.1); Chloride 105 mmol/L (98-107); Creatinine, Serum 0.88 mg/dL (0.55-1.02); EST Glomerular Filtration Rate 66 mL/min (>60); Est Glom Filt Rate - Afr Amer 80 mL/min (>60); Globulin 4.3 g/dL (2.2-4.2); Glucose 148 mg/dL (74-106); LDH 165 U/L (84-246); Potassium 3.8 mmol/L (3.5-5.1); Protein, Total 7.5 g/dL (6.4-8.2); Sodium Level 136 mmol/L (136-145)
== END | disposition home or self-care (01) ==
LOC: CT 08:54
PROVIDERS: PCP Internal Medicine; Referring Provider Student in an Organized Health Care Education/Training Program; Visit Provider Student in an Organized Health Care Education/Training Program
DX: K50.10 Crohn's disease of large intestine without complications (principal); K57.30 Diverticulosis of large intestine without perforation or abscess without bleeding
CPT/HCPCS: 36415; 74177; 80053; 83615; 85025; 85652; 86140; Q9967

== ENCOUNTER 2024-05-26 08:48 | Inpatient (IN) | payer MEDICARE, SELFPAY ==
[2024-05-26] VITALS (9 sets, daily range): BP systolic 115–160; BP diastolic 59–80; PULSE 60–80; RESP 16–18; TEMP 35.9–36.6; O2SAT 94–100; BMI 29.9
--- NOTE | 2024-05-26 09:16 | EDS_ITS ---
HPI HPI - GI History of Present Illness Chief Complaint: Abd Pain Informant: patient Narrative Narrative: Presents to the ED concerns for 3 bloody bowel movements this morning. Patient being treated for diverticulitis, symptoms started 5 days ago. She had pain left lower quadrant. She has had diverticulitis in the past. She called her GI office with Dr. Espinoza on Friday was started on Cipro and Flagyl twice a day. She has been taking this. She follow-up in the office yesterday saw the PA, she was sent for blood work and a CT scan. Today however noted blood in her stool x 3 was concerned. She takes baby aspirin. Denies fevers or chills. Denies any worsening pain in her abdomen. She has had at least 3 other diverticulitis bouts in the past last time was 1.5 years ago and this was her last colonoscopy post the event. Denies lightheaded symptoms states overall feels a little off. PFSH [facility] Medical History Chest pain Insomnia Schatzki's ring Diverticular disease Nocturia more than twice per night Rosenthal's esophagus Segmental colitis associated with diverticulosis History of hiatal hernia History of diverticulitis Gastric reflux Cancer Arthritis Dysphagia Rosacea Bulging lumbar disc Constipation Lower abdominal pain Diabetes type 2, controlled Hyperlipidemia Hypertension Home Medications ?Medication ?Instructions ?Recorded ?Last Taken ?Type Lactobacillus acidophilus 250 1,000 mmu cells PO DAILY 06/12/22 05/25/24 History million cell capsule (Probiotic Acidophilus) aspirin 81 mg tablet,delayed 81 mg PO DAILY 06/12/22 05/25/24 History release losartan 50 mg tablet 50 mg PO DAILY 06/12/22 05/25/24 History multivitamin with minerals-folic 1 tab PO DAILY 06/12/22 05/25/24 History acid 200 mcg chewable tablet (Multivitamin Gummies) pioglitazone 30 mg tablet (Actos) 30 mg PO DAILY 06/12/22 05/25/24 History rosuvastatin 40 mg tablet (Crestor) 40 mg PO QHS 06/12/22 05/25/24 History pantoprazole 40 mg tablet,delayed 40 mg PO QAM #180 tabs 08/12/22 05/25/24 Rx release ciprofloxacin HCl 500 mg tablet 500 mg PO BID 10 days #20 tabs 05/24/24 05/25/24 Rx metronidazole 500 mg tablet 500 mg PO BID 10 days #20 tabs 05/24/24 05/25/24 Rx dicyclomine 10 mg capsule 10 mg PO BID #30 caps 05/25/24 05/25/24 Rx empagliflozin 25 mg tablet 25 mg PO DAILY 05/26/24 05/25/24 History (Jardiance) glipizide 10 mg tablet, extended 10 mg PO BID 05/26/24 05/25/24 History release 24 hr Allergy/AdvReac Type Severity Reaction Status Date / Time neomycin AdvReac Itching Verified 05/12/24 10:58 Family History Grandfather Diabetes Father Colon cancer Mother Cervical cancer Lung cancer Brother COPD (chronic obstructive pulmonary disease) Surgical History H/O wrist surgery Hx of colonoscopy History of esophagogastroduodenoscopy (EGD) Hx of eye surgery squamous cell removed Status post left knee replacement S/P cholecystectomy melanoma removed S/P total hysterectomy S/P arthroscopy of right shoulder S/P left knee arthroscopy Social History Smoking Status: Never smoker alcohol intake: never substance use type: does not use caffeine: No what type of physical activity do you participate in: walking and bicycling frequency: 5-6 times per week seatbelt use: always do you feel safe at home: Yes 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, 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[employer] ED Constitutional Constitutional ED: Denies chills, fever(s) or sweats Eyes Eyes: Denies change in vision ENT ENT ED: Denies dysphagia or sore throat Cardiovascular Cardiovascular: Denies chest pain, leg edema, palpitations or racing heartbeat Respiratory/Chest Respiratory/Chest: Denies cough, dyspnea or dyspnea on exertion Gastrointestinal Gastrointestinal: Reports abdominal pain and other Details: Blood in stools ; Denies diarrhea, nausea or vomiting Genitourinary Genitourinary ED: Denies dysuria, hematuria or urinary frequency Musculoskeletal Musculoskeletal: Denies back pain, extremity pain or neck pain Integumentary Denies rash or wounds Neurologic Neurologic: Denies headache(s), paresthesias or weakness EXAM Physical Exam Const Vital Signs: 05/26/24 08:49 05/26/24 09:18 05/26/24 09:27 Temperature 96.6 F L 96.6 F L Temperature Source Temporal Oral Pulse Rate 80 67 Pulse Rate [Lying] 68 Pulse Rate [Sitting (for 1 minute prior to obtaining)] 66 Pulse Rate [Standing (for 1 minute prior to obtaining)] 77 Respiratory Rate 16 16 Blood Pressure 115/79 149/67 H Blood Pressure [Lying] 123/59 H Blood Pressure [Sitting (for 1 minute prior to obtaining)] 130/64 H Blood Pressure [Standing (for 1 minute prior to obtaining)] 124/71 H Blood Pressure Mean 91 94 Blood Pressure Mean [Lying] 80 Blood Pressure Mean [Sitting (for 1 minute prior to obtaining)] 86 Blood Pressure Mean [Standing (for 1 minute prior to obtaining)] 88 Pulse Ox 100 100 Oxygen Delivery Method Room Air Room Air 05/26/24 10:00 05/26/24 10:49 Temperature 96.6 F L Temperature Source Temporal Pulse Rate 60 68 Pulse Rate [Lying] Pulse Rate [Sitting (for 1 minute prior to obtaining)] Pulse Rate [Standing (for 1 minute prior to obtaining)] Respiratory Rate 16 18 Blood Pressure 140/65 H 160/72 H Blood Pressure [Lying] Blood Pressure [Sitting (for 1 minute prior to obtaining)] Blood Pressure [Standing (for 1 minute prior to obtaining)] Blood Pressure Mean 90 101 Blood Pressure Mean [Lying] Blood Pressure Mean [Sitting (for 1 minute prior to obtaining)] Blood Pressure Mean [Standing (for 1 minute prior to obtaining)] Pulse Ox 98 99 Oxygen Delivery Method Room Air Room Air Positive well nourished and well developed General Appearance ED: well developed and NAD HEENT Reports moist mucous membranes normocephalic and atraumatic Eyes EOMs intact bilaterally and conjunctivae normal General Eye ED: Yes normal appearance of both eyes Neck no lymphadenopathy and supple General: Negative for tenderness Chest Wall Chest: Negative for tenderness Resp normal respiratory effort and normal air movement Effort and Inspection: symmetric chest movement; Negative for respiratory distress Cardio regular rate, regular rhythm and no murmurs Peripheral Pulses: pulses 2+ throughout GI normal to inspection, nondistended, normoactive bowel sounds GI Narrative: Pain in the deep palpation between suprapubic and left lower quadrant region. There is no guarding or rebound. Palpation: Negative for guarding or rebound tenderness present Back/Spine no CVA tenderness and no thoracic nor lumbar tenderness Extremity normal to inspection General Extremety ED: Negative for edema or tenderness General Extremity: Negative for edema Neuro oriented x3 and no sensory deficits noted Sensorium / Orientation: awake and alert Skin no rashes or lesions noted and no wounds MDM MDM MDM Narrative Medical decision making narrative: Interventions / MDM: Differential diagnosis: Sigmoid diverticulitis, rectal bleed Diagnosis considered but do not suspect: No clinical concerns for pneumoperitoneum My EKG interpretation: N/A Imaging independently reviewed and interpreted by myself: N/A External documents reviewed: Outpatient image studies CT scan uncomplicated sigmoid diverticulitis yesterday. Normal white count 7.5 yesterday. Hemoglobin 13.4, creatinine 0.88. Test considered but not ordered:N/A ED course: Patient vital signs stable nontoxic. Concern today developing bloody stools. She had 3 episodes. She had no worsening pain for clinically not concerns for pneumoperitoneum. I will recheck labs, IV fluids, orthostatic vital signs were obtained. She did not take today's dose of antibiotics here for oral Cipro and Flagyl was ordered. 1000: White count 4.9 hemoglobin stable 13.7. Upon standing with her was that she felt weak in the legs. I discussed with her GI doctor, Dr. Espnioza, discussed new blood in her stools today. Did confirm Flagyl should be 3 times a day with Cipro twice a day. With her new bright red blood per rectum today, he recommended and agrees with observation to trend H&H. Also for possible surgery consult for recurrent diverticulitis that she has not seen one in the past. He will see her in the hospital as a consult to follow. I discussed with hospitalist Dr. Doherty for admission. Re-evaluation: stable Disposition discussed with patient/family/significant other: Case discussed with consulting clinician: Gastroenterology, hospitalist This note was generated with [employer] dictation software. It may contain incorrect words, spelling, and punctuation that were not noted in checking the note before signing. Lab Data Attestation: I reviewed the patient's lab results. Labs: Laboratory Results - last 24 hr 05/26/24 09:05 WBC 4.9 RBC 4.32 Hgb 13.7 Hct 42.1 MCV 97.5 MCH 31.7 MCHC 32.5 RDW Std Deviation 41.4 RDW Coeff of Sisi 11.6 Plt Count 296 MPV 10.5 Immature Gran % (Auto) 0.400 Neut % (Auto) 59.0 Lymph % (Auto) 27.1 [place] % (Auto) 8.8 Eos % (Auto) 3.3 Baso % (Auto) 1.4 H Absolute Neuts (auto) 2.9 Absolute Lymphs (auto) 1.33 Nucleated RBC % 0 Sodium 138 Potassium 3.8 Chloride 106 Carbon Dioxide 27.0 Anion Gap 5 BUN 23 H Creatinine 0.82 Est GFR (MDRD) Af Amer 88 Est GFR (MDRD) Non-Af 73 BUN/Creatinine Ratio 28.2 H Glucose 132 H Calcium 9.9 Discharge Plan Dx/Rx/DC Orders Clinical Impression: GI (gastrointestinal bleed), Diverticulitis of sigmoid colon, Weakness Disposition Disposition: Acute Care [facility] Discharge Date/Time: 05/26/24 11:51
[2024-05-26 09:22] LABS: Absolute Lymphocyte Count 1.33 X10^3/uL (0.83-4.51); Absolute Neutrophil Count 2.9 X10^3/uL (2.0-7.7); Basophil# 0.07 X10^3/uL; Basophil% 1.4 % (0-1); Eosinophil# 0.16 X10^3/uL; Eosinophils% 3.3 % (0-5); Hematocrit 42.1 % (37-47); Hemoglobin 13.7 g/dL (12.0-15.0); Lymphocyte # 1.33 X10^3/ul (0.83-4.51); Lymphocyte % 27.1 % (19-41); Mean Corp Hgb Conc 32.5 g/dL (32-36); Mean Corpuscular Hgb 31.7 pg (27.0-32.0); Mean Corpuscular Volume 97.5 fL (81-99); Mean Platelet Vol. 10.5 fl (6.2-12.0); Monocyte# 0.43 X10^3/uL; Monocyte% 8.8 % (0-10); NRBC Flagged by Analyzer 0 % (0-5); Platelet Count 296 K/mm3 (150-450); RBC Distribution Width CV 11.6 % (11.6-14.6); RBC Distribution Width SD 41.4 fl (35.1-43.9); Red Blood Count 4.32 M/mm3 (4.2-5.4); White Blood Count 4.9 K/mm3 (4.4-11.0)
[2024-05-26] MEDS: 0.9% Normal Saline (1000mL) 1,000 ML 1000 ML IV (09:45)
[2024-05-26] MEDS: metroNIDAZOLE 500 MG Tablet PO (09:45)
[2024-05-26] MEDS: Ciprofloxacin 500 MG Tablet PO (09:45)
[2024-05-26 09:53] LABS: Anion Gap 5 (5-15); BUN 23 mg/dL (7-18); BUN/Creat Ratio 28.2 RATIO (10-20); Calcium,Total 9.9 mg/dL (8.5-10.1); Chloride 106 mmol/L (98-107); Creatinine, Serum 0.82 mg/dL (0.55-1.02); EST Glomerular Filtration Rate 73 mL/min (>60); Est Glom Filt Rate - Afr Amer 88 mL/min (>60); Glucose 132 mg/dL (74-106); Potassium 3.8 mmol/L (3.5-5.1); Sodium Level 138 mmol/L (136-145)
--- NOTE | 2024-05-26 10:45 | HP.PCM.HOS_ITS ---
HPI - General General Date of Admission: 05/26/24 Date of Service: 05/26/24 Chief Complaint: ABDOMINAL PAIN HPI Narrative GREER WEBB, is a 74 F with a PMH as outlined who presents via the ED on 05/26/2024 with a compaltn of bloody stools x 3 since morning of admission. She had been started on treatment for diverticulitis 5 days prior to admission. SHe was on PO ciprofloxacin and metronidazole which had been prescribed by her cable swager. She went to see her GI the day before admission and says she had a CT of the abdomen and blood work done. On the day of admission, she noted blood in her stool three times and so decided to come in to the ED. She denied any fever, chills, nausea, vomiting or any other symptoms. Review of systems was otherwise negative. Vitals in the ED were BP of 140/65, MT of 60, RR of 16 and temp of 96.6F. She was saturating at 98% on room air. CBC showed hb of 13.7, WBC of 4.9 and platelets of 296. CHemistry showed sodium of 138, potassium of 3.8, Cr of 0.82. CT of the abdomen and pelvis done on 05/25/2024 showed evidence of sigmoid diverticulitis with sigmoid diverticulosis and thickening of the surrounding mesentery and colonic wall with inflammatory changes. She is being admitted to be managed for lower GI bleed likely due to acute sigmoid diverticulitis. [facility] Medical History Chest pain Insomnia Schatzki's ring Diverticular disease Nocturia more than twice per night Rosenthal's esophagus Segmental colitis associated with diverticulosis History of hiatal hernia History of diverticulitis Gastric reflux Cancer Arthritis Dysphagia Rosacea Bulging lumbar disc Constipation Lower abdominal pain Diabetes type 2, controlled Hyperlipidemia Hypertension Home Medications ?Medication ?Instructions ?Recorded ?Last Taken ?Type Lactobacillus acidophilus 250 1,000 mmu cells PO DAILY 06/12/22 05/25/24 History million cell capsule (Probiotic Acidophilus) aspirin 81 mg tablet,delayed 81 mg PO DAILY 06/12/22 05/25/24 History release losartan 50 mg tablet 50 mg PO DAILY 06/12/22 05/25/24 History multivitamin with minerals-folic 1 tab PO DAILY 06/12/22 05/25/24 History acid 200 mcg chewable tablet (Multivitamin Gummies) pioglitazone 30 mg tablet (Actos) 30 mg PO DAILY 06/12/22 05/25/24 History rosuvastatin 40 mg tablet (Crestor) 40 mg PO QHS 06/12/22 05/25/24 History pantoprazole 40 mg tablet,delayed 40 mg PO QAM #180 tabs 08/12/22 05/25/24 Rx release ciprofloxacin HCl 500 mg tablet 500 mg PO BID 10 days #20 tabs 05/24/24 05/25/24 Rx metronidazole 500 mg tablet 500 mg PO BID 10 days #20 tabs 05/24/24 05/25/24 Rx dicyclomine 10 mg capsule 10 mg PO BID #30 caps 05/25/24 05/25/24 Rx empagliflozin 25 mg tablet 25 mg PO DAILY 05/26/24 05/25/24 History (Jardiance) glipizide 10 mg tablet, extended 10 mg PO BID 05/26/24 05/25/24 History release 24 hr Allergy/AdvReac Type Severity Reaction Status Date / Time neomycin AdvReac Itching Verified 05/12/24 10:58 Family History Grandfather Diabetes Father Colon cancer Mother Cervical cancer Lung cancer Brother COPD (chronic obstructive pulmonary disease) Surgical History H/O wrist surgery Hx of colonoscopy History of esophagogastroduodenoscopy (EGD) Hx of eye surgery squamous cell removed Status post left knee replacement S/P cholecystectomy melanoma removed S/P total hysterectomy S/P arthroscopy of right shoulder S/P left knee arthroscopy Social History Smoking Status: Never smoker alcohol intake: never substance use type: does not use caffeine: No what type of physical activity do you participate in: walking and bicycling frequency: 5-6 times per week seatbelt use: always do you feel safe at home: Yes 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, 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 Constitutional Constitutional: Reports fatigue, malaise and weakness; Denies anorexia, chills or fever(s) Eyes Eyes: Denies change in vision ENT HEENT: Denies dysphagia or headache(s) Cardiovascular Cardiovascular: Denies chest pain, dyspnea on exertion, edema, lightheadedness, orthopnea, palpitations, paroxysmal nocturnal dyspnea, rapid heart rate or syncope Respiratory/Chest Respiratory/Chest: Denies cough, productive cough, shortness of breath at rest or shortness of breath with exertion Gastrointestinal Gastrointestinal: Reports abdominal pain; Denies constipation, diarrhea, nausea or vomiting Genitourinary Genitourinary: Denies dysuria Neurologic Neurologic: Denies confusion, dizziness, focal weakness, headache(s) or numbness Psychiatric Psychiatric: Denies anxiety or depression Vital Signs Vital Signs Vital Signs: 05/26/24 08:49 05/26/24 09:18 05/26/24 09:27 Temperature 96.6 F L 96.6 F L Temperature Source Temporal Oral Pulse Rate 80 67 Pulse Rate [Lying] 68 Pulse Rate [Sitting (for 1 minute prior to obtaining)] 66 Pulse Rate [Standing (for 1 minute prior to obtaining)] 77 Respiratory Rate 16 16 Blood Pressure 115/79 149/67 H Blood Pressure [Lying] 123/59 H Blood Pressure [Sitting (for 1 minute prior to obtaining)] 130/64 H Blood Pressure [Standing (for 1 minute prior to obtaining)] 124/71 H Blood Pressure Mean 91 94 Blood Pressure Mean [Lying] 80 Blood Pressure Mean [Sitting (for 1 minute prior to obtaining)] 86 Blood Pressure Mean [Standing (for 1 minute prior to obtaining)] 88 Pulse Ox 100 100 Oxygen Delivery Method Room Air Room Air 05/26/24 10:00 Temperature 96.6 F L Temperature Source Temporal Pulse Rate 60 Pulse Rate [Lying] Pulse Rate [Sitting (for 1 minute prior to obtaining)] Pulse Rate [Standing (for 1 minute prior to obtaining)] Respiratory Rate 16 Blood Pressure 140/65 H Blood Pressure [Lying] Blood Pressure [Sitting (for 1 minute prior to obtaining)] Blood Pressure [Standing (for 1 minute prior to obtaining)] Blood Pressure Mean 90 Blood Pressure Mean [Lying] Blood Pressure Mean [Sitting (for 1 minute prior to obtaining)] Blood Pressure Mean [Standing (for 1 minute prior to obtaining)] Pulse Ox 98 Oxygen Delivery Method Room Air Physical Exam Const alert, oriented x3 and no apparent distress General Appearance: cooperative HEENT normocephalic, head/scalp atraumatic and hearing grossly normal bilaterally Mouth: moist mucous membranes abnormal Eyes PERRL, EOMs intact bilaterally and conjunctivae normal Neck no lymphadenopathy and supple Resp normal respiratory effort, no retractions and clear to auscultation bilaterally Cardio regular rate, regular rhythm, S1 normal heart sound, S2 normal heart sound and no murmurs GI GI Narrative: abdomen soft, mild tenderness in left lower quadrant, no guarding or rebound tenderness Extremity normal to inspection, full ROM and no clubbing, cyanosis or edema Neuro oriented x3, CN's II-XII intact bilaterally, moves all extremities and no focal motor deficits Sensorium / Orientation: awake and alert Motor Exam: strength 5/5 throughout Psych affect normal Results Lab / Micro Data 05/26/24 09:05 05/26/24 09:05 Labs: Laboratory Results - last 24 hr 05/26/24 09:05: WBC 4.9, RBC 4.32, Hgb 13.7, Hct 42.1, MCV 97.5, MCH 31.7, MCHC 32.5, RDW Std Deviation 41.4, RDW Coeff of Sisi 11.6, Plt Count 296, MPV 10.5, Immature Gran % (Auto) 0.400, Neut % (Auto) 59.0, Lymph % (Auto) 27.1, [place] % (Auto) 8.8, Eos % (Auto) 3.3, Baso % (Auto) 1.4 H, Absolute Neuts (auto) 2.9, Absolute Lymphs (auto) 1.33, Nucleated RBC % 0, Sodium 138, Potassium 3.8, Chloride 106, Carbon Dioxide 27.0, Anion Gap 5, BUN 23 H, Creatinine 0.82, Est GFR (MDRD) Af Amer 88, Est GFR (MDRD) Non-Af 73, BUN/Creatinine Ratio 28.2 H, G lucose 132 H, Calcium 9.9 Assessment & Plan Assessment/Plan (1) Diverticulitis of sigmoid colon: (2) GI (gastrointestinal bleed): PLAN: Plan #Acute lower GI bleed due to acute diverticulitis * Admit to [facility] under observation. * She was admitted with a complaint of abdominal pain and rectal bleeding. She had been diagnosed with acute diverticulitis the day before and started on oral ciprofloxacin and metronidazole by her cable swager. * She had 3 episodes of rectal bleeding on the day of admission and says she notices some clots 2. * CT of the abdomen and pelvis done the day before admission showed acute sigmoid diverticulitis. * Keep NPO. Hydrate with IV fluid normal saline at 125 cc/h. Started on IV pantoprazole. * IV metronidazole and IV ciprofloxacin. * Get blood cultures. Consult gastroenterology. * P.o. Tylenol, p.o. oxycodone and IV morphine as needed for pain. * IV Zofran. * #Hyperlipidemia: On statin Hypertension: BP meds on hold since she is NPO. IV hydralazine as needed. #Type 2 diabetes mellitus: Hold Lantus and oral medications as she is NPO. Insulin sliding scale. Accu-Cheks every 6 hourly DVT prophylaxis: SCDs due to GI bleed. CODE STATUS: Full code * Patient counseled extensively about different types of CODE STATUS including full code, DNR CCA and DNR CCA. * Patient elects to be full code. * Total [id number] time 17 minutes. Charges/Coding Visit Charges Inpatient E&M: 06350 Init Hosp L3 Procedures Hospitalists Procedures: 55665 Advncd Care Plan 30 Min
[2024-05-26] MEDS: Pantoprazole Sodium 40 MG in 0.9% Normal Saline (100mL MB+) 100 ML 330 MG IV ×2 (12:40→20:01)
[2024-05-26] MEDS: 0.9% Normal Saline (1000mL) 1,000 ML 125 ML IV (12:40)
[2024-05-26] MEDS: Ciprofloxacin 400 MG/200 ML BAG 200 MG IV ×2 (13:10→22:16)
[2024-05-26 13:33] LABS: Bedside Glucose 67 mg/dL (74-106)
[2024-05-26 13:47] LABS: Bedside Glucose 81 mg/dL (74-106)
[2024-05-26] MEDS: Dextrose 5%/0.9% NaCl 1,000 ML 125 ML IV (14:55)
--- NOTE | 2024-05-26 17:02 | CON.PCM.GI_ITS ---
HPI Consult Data Date of Consult: 05/26/24 HPI Narrative Reason for Consultation: GI bleed HPI Narrative: GREER WEBB, is a 74 F who presents as an outpatient after being diagnosed with diverticulitis. She thinks she has had at least 4 episodes of diverticulitis. As an outpatient she was started on ciprofloxacin 500 mg twice daily and metronidazole 500 mg twice daily. She came to the hospital because she started developing lower GI bleeding. She never had bleeding per rectum in the past. Her last colonoscopy was back in 2018 and she had polyps at that time. She was concerned at this time because she has a family history of colon cancer. As an outpatient she was also given dicyclomine for cramping. Vitals in the ED were BP of 140/65, CO of 60, RR of 16 and temp of 96.6F. She was saturating at 98% on room air. - CBC showed hb of 13.7, WBC of 4.9 and platelets of 296. - sodium of 138, potassium of 3.8, Cr of 0.82. -CT of the abdomen and pelvis done on 05/25/2024 showed evidence of sigmoid diverticulitis with sigmoid diverticulosis and thickening of the surrounding mesentery and colonic wall with inflammatory changes. She is being admitted to be managed for lower GI bleed likely due to acute sigmoid diverticulitis. [facility], [facility] Medical History Chest pain Insomnia Schatzki's ring Diverticular disease Nocturia more than twice per night Rosenthal's esophagus Segmental colitis associated with diverticulosis History of hiatal hernia History of diverticulitis Gastric reflux Cancer Arthritis Dysphagia Rosacea Bulging lumbar disc Constipation Lower abdominal pain Diabetes type 2, controlled Hyperlipidemia Hypertension Home Medications ?Medication ?Instructions ?Recorded ?Last Taken ?Type Lactobacillus acidophilus 250 1,000 mmu cells PO DAILY 06/12/22 05/25/24 History million cell capsule (Probiotic Acidophilus) aspirin 81 mg tablet,delayed 81 mg PO DAILY 06/12/22 05/25/24 History release losartan 50 mg tablet 50 mg PO DAILY 06/12/22 05/25/24 History multivitamin with minerals-folic 1 tab PO DAILY 06/12/22 05/25/24 History acid 200 mcg chewable tablet (Multivitamin Gummies) pioglitazone 30 mg tablet (Actos) 30 mg PO DAILY 06/12/22 05/25/24 History rosuvastatin 40 mg tablet (Crestor) 40 mg PO QHS 06/12/22 05/25/24 History pantoprazole 40 mg tablet,delayed 40 mg PO QAM #180 tabs 08/12/22 05/25/24 Rx release ciprofloxacin HCl 500 mg tablet 500 mg PO BID 10 days #20 tabs 05/24/24 05/25/24 Rx metronidazole 500 mg tablet 500 mg PO BID 10 days #20 tabs 05/24/24 05/25/24 Rx dicyclomine 10 mg capsule 10 mg PO BID #30 caps 05/25/24 05/25/24 Rx empagliflozin 25 mg tablet 25 mg PO DAILY 05/26/24 05/25/24 History (Jardiance) glipizide 10 mg tablet, extended 10 mg PO BID 05/26/24 05/25/24 History release 24 hr Allergy/AdvReac Type Severity Reaction Status Date / Time neomycin AdvReac Itching Verified 05/12/24 10:58 Family History Grandfather Diabetes Father Colon cancer Mother Cervical cancer Lung cancer Brother COPD (chronic obstructive pulmonary disease) Surgical History H/O wrist surgery Hx of colonoscopy History of esophagogastroduodenoscopy (EGD) Hx of eye surgery squamous cell removed Status post left knee replacement S/P cholecystectomy melanoma removed S/P total hysterectomy S/P arthroscopy of right shoulder S/P left knee arthroscopy Social History Smoking Status: Never smoker alcohol intake: never substance use type: does not use caffeine: No what type of physical activity do you participate in: walking and bicycling frequency: 5-6 times per week seatbelt use: always do you feel safe at home: Yes 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, 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 Constitutional Constitutional: Reports fatigue, malaise and weakness; Denies anorexia, chills or fever(s) Eyes Eyes: Denies change in vision ENT HEENT: Denies dysphagia or headache(s) Cardiovascular Cardiovascular: Denies chest pain, dyspnea on exertion, edema, lightheadedness, orthopnea, palpitations, paroxysmal nocturnal dyspnea, rapid heart rate or syncope Respiratory/Chest Respiratory/Chest: Denies cough, productive cough, shortness of breath at rest or shortness of breath with exertion Gastrointestinal Gastrointestinal: Reports abdominal pain; Denies constipation, diarrhea, nausea or vomiting Genitourinary Genitourinary: Denies dysuria Neurologic Neurologic: Denies confusion, dizziness, focal weakness, headache(s) or numbness Psychiatric Psychiatric: Denies anxiety or depression Physical Exam Const alert, oriented x3 and no apparent distress General Appearance: cooperative HEENT normocephalic, head/scalp atraumatic and hearing grossly normal bilaterally Mouth: moist mucous membranes abnormal Eyes PERRL, EOMs intact bilaterally and conjunctivae normal Neck no lymphadenopathy and supple Resp normal respiratory effort, no retractions and clear to auscultation bilaterally Cardio regular rate, regular rhythm, S1 normal heart sound, S2 normal heart sound and no murmurs GI GI Narrative: abdomen soft, mild tenderness in left lower quadrant, no guarding or rebound tenderness Extremity normal to inspection, full ROM and no clubbing, cyanosis or edema Neuro oriented x3, CN's II-XII intact bilaterally, moves all extremities and no focal motor deficits Sensorium / Orientation: awake and alert Motor Exam: strength 5/5 throughout Psych affect normal Lab / Micro Data 05/26/24 09:05 05/26/24 09:05 Labs: Laboratory Results - last 24 hr 05/26/24 09:05: WBC 4.9, RBC 4.32, Hgb 13.7, Hct 42.1, MCV 97.5, MCH 31.7, MCHC 32.5, RDW Std Deviation 41.4, RDW Coeff of Sisi 11.6, Plt Count 296, MPV 10.5, Immature Gran % (Auto) 0.400, Neut % (Auto) 59.0, Lymph % (Auto) 27.1, [place] % (Auto) 8.8, Eos % (Auto) 3.3, Baso % (Auto) 1.4 H, Absolute Neuts (auto) 2.9, Absolute Lymphs (auto) 1.33, Nucleated RBC % 0, Sodium 138, Potassium 3.8, Chloride 106, Carbon Dioxide 27.0, Anion Gap 5, BUN 23 H, Creatinine 0.82, Est GFR (MDRD) Af Amer 88, Est GFR (MDRD) Non-Af 73, BUN/Creatinine Ratio 28.2 H, G lucose 132 H, Calcium 9.9 05/26/24 13:11: POC Glucose 67 L 05/26/24 13:29: POC Glucose 81 Assessment & Plan Assessment/Plan (1) Diverticulitis of sigmoid colon: (2) GI (gastrointestinal bleed): PLAN: 74-year-old with history of recurrent diverticulitis presents with left lower quadrant pain and lower GI bleeding in the setting of acute diverticulitis. Differential diagnosis does include ischemic colitis associated with diverticulosis and diverticulitis. Also differential diagnosis is ischemia proctitis, hemorrhoidal disease, anal fissure. She should undergo colonoscopy to evaluate her lower GI tract. She was explained alternatives, risk, benefits including not withstanding bleeding, infection, sepsis, perforation, need for more charge and . She will have an ASA of 3. Continue antibiotics. Patient can have clear liquid diet tonight. Charges/Coding Visit Charges Inpatient E&M: 37729 Init Hosp L3
[2024-05-26] MEDS: Bisacodyl 5 MG Tablet 20 MG PO (17:52)
[2024-05-26 18:19] LABS: Bedside Glucose 89 mg/dL (74-106)
--- NOTE | 2024-05-26 20:20 | NURSING ---
This RN looked for the prep and it is still not up here from Pharmacy
[2024-05-26] MEDS: 0.9% Normal Saline (250mL Bag) 250 ML 15 ML IV (20:38)
[2024-05-26] MEDS: Polyethylene Glycol 3350 BOWEL PREP PO (22:15)
[2024-05-26 23:03] LABS: Bedside Glucose 100 mg/dL (74-106)
[2024-05-27] VITALS (10 sets, daily range): BP systolic 120–157; BP diastolic 54–85; PULSE 61–78; RESP 16–18; TEMP 36.4–36.7; O2SAT 93–99; BMI 29.9
--- NOTE | 2024-05-27 | COLBX_PTH ---
PATIENT: GREER WEBB LOC: MS3 U#:[id number] AGE/SX: 74/F ROOM: [facility]27/[address]: Dr. Matilde Doherty MD : [id number] BED: 1 DIS: 05/28/2024 SPEC #: [id number] RECD: 05/27/24 16:57 STATUS: ADAMARIS MARIE #: [id number] ISHAN: 05/27/24 00:[address]: Ivan Espinoza DEPT: SURGICAL PATHOLOGY RECD BY: Lexy Brizuela ENTERED: 05/28/24 07:44 SP TYPE: COLON BX OTHR DR: MD Dr. Matilde Tao MD Tissues: Sigmoid colon biopsy Procedures: Surgery Specimen Level IV HEADER OPERATION: Colonoscopy with biopsies PRE-OP DIAGNOSIS: Diverticulitis of sigmoid colon, GI bleed TISSUE SUBMITTED: Sigmoid colon colitis MICROSCOPIC DIAGNOSIS Sigmoid colon, biopsy: Fragments of colonic mucosa, no pathologic diagnosis. JOSE M/ 05/31/2024 MICROSCOPIC DESCRIPTION Slides are reviewed. GROSS DESCRIPTION Received in fixative is one container labeled with the patient's name and designated Sigmoid colon colitis. The specimen consists of multiple irregular fragments of light liu soft tissue that in aggregate measure 1.5 x 0.4 x 0.1 cm. The specimen is totally submitted in one cassette. 05/28/2024 TC:4 CPT:10084
[2024-05-27] MEDS: Dextrose 5%/0.9% NaCl 1,000 ML 125 ML IV (03:04)
--- NOTE | 2024-05-27 05:55 | EKG12_ITS ---
Test Reason : PRE-OP Blood Pressure : / mmHG Vent. Rate : 069 BPM Atrial Rate : 069 BPM P-R Int : 160 ms QRS Dur : 094 ms QT Int : 398 ms P-R-T Axes : 054 034 029 degrees QTc Int : 426 ms Normal sinus rhythm Normal ECG When compared with ECG of 15-JUN-2014 10:34, No significant change was found Confirmed by ELTON MCNEILL, CESAR ([id number]), publishing editor LAYLA MOY ([id number]) on 05/28/2024 7:20:43 AM Referred By: ELGIN Confirmed By:CHER CONDE MD
[2024-05-27 06:51] LABS: Bedside Glucose 160 mg/dL (74-106)
[2024-05-27 07:13] LABS: Absolute Lymphocyte Count 1.25 X10^3/uL (0.83-4.51); Absolute Neutrophil Count 2.6 X10^3/uL (2.0-7.7); Basophil# 0.05 X10^3/uL; Basophil% 1.1 % (0-1); Eosinophil# 0.12 X10^3/uL; Eosinophils% 2.6 % (0-5); Hematocrit 38.8 % (37-47); Hemoglobin 12.8 g/dL (12.0-15.0); Lymphocyte # 1.25 X10^3/ul (0.83-4.51); Lymphocyte % 27.3 % (19-41); Mean Corpuscular Hgb 32.2 pg (27.0-32.0); Mean Corpuscular Volume 97.7 fL (81-99); Mean Platelet Vol. 11.1 fl (6.2-12.0); Monocyte# 0.56 X10^3/uL; Monocyte% 12.2 % (0-10); NRBC Flagged by Analyzer 0 % (0-5); Neutrophil # 2.59 X10^3/uL (2.7-7.7); Neutrophil % 56.6 % (47-70); Platelet Count 291 K/mm3 (150-450); RBC Distribution Width CV 11.6 % (11.6-14.6); RBC Distribution Width SD 41.8 fl (35.1-43.9); Red Blood Count 3.97 M/mm3 (4.2-5.4); White Blood Count 4.6 K/mm3 (4.4-11.0)
[2024-05-27 07:29] LABS: Anion Gap 4 (5-15); BUN 12 mg/dL (7-18); BUN/Creat Ratio 14.6 RATIO (10-20); Calcium,Total 8.8 mg/dL (8.5-10.1); Chloride 113 mmol/L (98-107); Creatinine, Serum 0.82 mg/dL (0.55-1.02); EST Glomerular Filtration Rate 72 mL/min (>60); Est Glom Filt Rate - Afr Amer 87 mL/min (>60); Estimated Creatinine Clearance 61.33 ml/min; Glucose 179 mg/dL (74-106); Potassium 3.5 mmol/L (3.5-5.1); Sodium Level 140 mmol/L (136-145)
[2024-05-27 09:12] LABS: Hemoglobin A1c 6.5 % (3.8-5.6)
[2024-05-27] MEDS: Pantoprazole Sodium 40 MG in 0.9% Normal Saline (100mL MB+) 100 ML 330 MG IV ×2 (09:12→20:57)
[2024-05-27] MEDS: Ciprofloxacin 400 MG/200 ML BAG 200 MG IV ×2 (09:45→21:18)
--- NOTE | 2024-05-27 10:08 | PN_ITS ---
Subjective Subjective Patient seen and examined. She still complained of left lower quadrant pain but said it was getting better. GI is on board anid she is due for colonoscopy today. Objective Data Objective Data Vital Signs: Vital Signs Temp Pulse Resp BP Pulse Ox O2 Del Method 97.5 F L 67 16 149/54 H 97 Room Air 05/27/24 08:15 05/27/24 08:15 05/27/24 08:15 05/27/24 08:15 05/27/24 08:15 05/27/24 08:15 Oxygen Delivery Method Room Air Weight: 174 lb 13.225 oz Body Mass Index (BMI) 29.9 Intake & Output: Intake and Output for Last 24 Hours 05/25/24 05/26/24 05/27/24 23:59 23:59 23:59 Intake Total 2923.09 / 3283.09 1627.16 / 1627.16 Balance 2923.09 / 3283.09 1627.16 / 1627.16 Lab / Micro Data 05/27/24 06:20 05/27/24 06:20 Labs: Laboratory Results - last 24 hr 05/26/24 13:11: POC Glucose 67 L 05/26/24 13:29: POC Glucose 81 05/26/24 17:51: POC Glucose 89 05/26/24 22:37: POC Glucose 100 05/27/24 06:20: WBC 4.6, RBC 3.97 L, Hgb 12.8, Hct 38.8, MCV 97.7, MCH 32.2 H, MCHC 33.0, RDW Std Deviation 41.8, RDW Coeff of Sisi 11.6, Plt Count 291, MPV 11.1, Immature Gran % (Auto) 0.200, Neut % (Auto) 56.6, Lymph % (Auto) 27.3, M la[place] % (Auto) 12.2 H, Eos % (Auto) 2.6, Baso % (Auto) 1.1 H, Absolute Neuts (auto) 2.6, Absolute Lymphs (auto) 1.25, Nucleated RBC % 0, Sodium 140, Potassium 3.5, Chloride 113 H, Carbon Dioxide 23.0, Anion Gap 4 L, BUN 12, Creatinine 0.82, Estim Creat Clear Calc 61.33, Est GFR (MDRD) Af Amer 87, Est GFR (MDRD) Non-Af 72, BUN/Creatinine Ratio 14.6, Glucose 179 H, Hemoglobin A1c 6.5 H, Calcium 8.8 05/27/24 06:30: POC Glucose 160 H Physical Exam Const alert, oriented x3 and no apparent distress General Appearance: cooperative HEENT normocephalic, head/scalp atraumatic and hearing grossly normal bilaterally Eyes PERRL, EOMs intact bilaterally and conjunctivae normal Neck no lymphadenopathy and supple Resp normal respiratory effort, normal air movement, no retractions and clear to auscultation bilaterally Cardio regular rate, regular rhythm, S1 normal heart sound, S2 normal heart sound and no murmurs GI GI Narrative: abdomen soft, still has mild tenderness in left lower quadrant, no guarding or rebound tenderness Extremity normal to inspection, full ROM, normal capillary refill and no clubbing, cyanosis or edema General Extremity: no tenderness to palpation of joints or extremities Skin General Skin Exam: no breakdown Neuro oriented x3, CN's II-XII intact bilaterally, moves all extremities and no focal motor deficits Sensorium / Orientation: awake and alert Motor Exam: strength 5/5 throughout and general weakness Psych thought process normal, cooperative and affect normal Appearance: appropriate Assessment & Plan Assessment/Plan (1) Diverticulitis of sigmoid colon: (2) GI (gastrointestinal bleed): PLAN: Plan #Acute lower GI bleed due to acute diverticulitis * Admit to [facility] under observation. * She was admitted with a complaint of abdominal pain and rectal bleeding. She had been diagnosed with acute diverticulitis the day before and started on oral ciprofloxacin and metronidazole by her chha. * She had 3 episodes of rectal bleeding on the day of admission and says she notices some clots also. * CT of the abdomen and pelvis done the day before admission showed acute sigmoid diverticulitis. * still NPO. ON IV PPI. * Continue IV metronidazole and ciprofloxacin * on PO tylenol, p.o oxycodone and IV morphine prn for pain. * IV Zofran. * for colonoscopy today * #Hyperlipidemia: On statin Hypertension: BP meds on hold since she is NPO. IV hydralazine as needed. #Type 2 diabetes mellitus: Hold Lantus and oral medications as she is NPO. Insulin sliding scale. Accu-Cheks every 6 hourly DVT prophylaxis: SCDs due to GI bleed. CODE STATUS: Full code * Charges/Coding Visit Charges Inpatient E&M: 26328 Subs Hosp L2
[2024-05-27 12:18] LABS: Bedside Glucose 147 mg/dL (74-106)
--- NOTE | 2024-05-27 12:29 | PRE.ANES_ITS ---
ASA Classification* ASA Classification ASA Classification: 2 and E Assessment & Plan Anesthesia* Anesthesia Assessment Anesthesia Assessment: Discussed sedation and/or anesthesia options, risks, benefits, and alternatives with patient/parents/legal guardian/POA. Questions invited. The patient/parents/legal guardian/POA seems to understand and agrees to proceed with anesthesia plan. Reviewed the physical assessment, medical history, allergy history and patient home medications list prior to surgery/procedure/anesthetic and documented any changes. Performed airway and anesthesia risk assessments. Anesthesia Type Anesthesia Type: MAC (see written pre anesthesia record for full assessment) Anesthesia Focused Assessment* Temperature: 97.5 F Pulse Rate: 67 Blood Pressure: 149/54 Respiratory Rate: 16 Pulse Ox: 97 Airway Assessment Mouth opens: >3 cm Mallampati Score: II Focused Labs Anesthesia Preop lab: CBC WBC 4.6 K/mm3 (4.4-11.0) 05/27/24 06:20 RBC 3.97 M/mm3 (4.2-5.4) L 05/27/24 06:20 Hgb 12.8 g/dL (12.0-15.0) 05/27/24 06:20 Hct 38.8 % (37-47) 05/27/24 06:20 Plt Count 291 K/mm3 (150-450) 05/27/24 06:20 CHEMISTRY Potassium 3.5 mmol/L (3.5-5.1) 05/27/24 06:20 Sodium 140 mmol/L (136-145) 05/27/24 06:20 BUN 12 mg/dL (7-18) 05/27/24 06:20 Creatinine 0.82 mg/dL (0.55-1.02) 05/27/24 06:20 Glucose 179 mg/dL (74-106) H 05/27/24 06:20 POC Glucose 147 mg/dL (74-106) H 05/27/24 11:52 COAG Pre-Assessment Diagnosis/Proposed Procedure Planned Operative Procedure(s): colon Anesthesia History 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 When Was Last Pacemaker Check QUESTION #4 FULL TEXT: You/Your Family Experience fever (hyperthermia) with Anesthesia Last Oral Intake Last Oral intake: Last Oral Intake NPO since 00:00 05/27/24 11:55 Meds taken in AM with sips of No 05/27/24 11:55 water? Meds patient instructed to take am of surgery PONV PONV - batch plant operator: PONV - batch plant operator Female HX of Motion Sickness HX of N/V After Surgery Non-Smoker Duration of Surgery greater than 60 minutes Number of Risk Factors PONV Score Height & Weight Height & Weight: Anesthesia: Height & Weight Height 5 ft 4 in 05/27/24 11:55 Weight: 79.3 kg 05/27/24 11:55 Body Mass Index (BMI) 29.9 05/27/24 11:55 Respiratory Assessment Respiratory Assessment - batch plant operator: Respiratory Tract Infection Hx - batch plant operator Hx Respiratory Tract Infection No 05/26/24 23:49 STOP Sleep Apnea STOP Sleep Apnea - batch plant operator: STOP Sleep Apnea - batch plant operator Hx Hypertension Yes 05/26/24 11:51 Hx Sleep Apnea No 05/26/24 11:51 CPAP No 06/24/23 11:36 BIPAP No 01/13/20 16:46 Do you snore loudly (louder No 05/26/24 11:51 than talking or can be heard Do you often feel tired/ No 05/26/24 11:51 fatigued/ sleepy during daytime? Has anyone observed you stop No 05/26/24 11:51 breathing during sleep? STOP Results Negative 05/26/24 11:51 QUESTION #5 FULL TEXT : Do you snore loudly (louder than talking or can be heard through closed doors)? 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 Specify any problems Hx of Preganancy in last 3 No 05/26/24 11:51 Months Nurse Filling Out Transfusion MSCHMID 05/26/24 11:51 & Questions: Date: 05/26/24 05/26/24 11:51 Time: 12:26 05/26/24 11:51 Patient unable to answer at this time (ie. confused, unrespo /Reproduction History /Reproductive History - batch plant operator: /Reproductive Hx- batch plant operator Hx Now No 05/26/24 23:49 Gestational Age (in weeks): EDC: Hx Hx Para Hx Section SAB No 05/26/24 23:49 Active Medications Active Medications: Current Medications Generic Name Dose Route Start Last Admin Trade Name Freq PRN Reason Stop Dose Admin Acetaminophen 650 mg 05/26/24 11:51 Acetaminophen 325 Mg Tablet PO Q6H PRN PRN Pain 1-10 Or Fever >100.7 Glucagon 1 mg 05/26/24 11:51 Glucagon 1 Mg/Ml Syringe IM X1 PRN HYPOGLYCEMIA Protocol Dextrose 250 mls @ 0 mls/hr 05/26/24 11:51 Dextrose 10%-Water IV .Q0M PRN HYPOGLYCEMIA Protocol As Directed Pantoprazole Sodium 40 mg/ 110 mls @ 330 mls/hr 05/26/24 11:51 05/27/24 09:35 Sodium Chloride IV Infused Q12 ROSARIO Infusion Metronidazole 150 mls @ 150 mls/hr 05/26/24 14:00 05/27/24 07:30 Flagyl IV Infused Q8 ROSARIO Infusion Ciprofloxacin 400 mg in 200 mls @ 200 mls/hr 05/26/24 11:51 05/27/24 10:58 Cipro IV Infused Q12 ROSARIO Infusion Sodium Chloride 250 mls @ 15 mls/hr 05/26/24 11:52 05/27/24 09:45 IV 0 mls/hr .[id number] PRN Infusion Additional IVPB Infusion Sodium Chloride 250 mls @ 15 mls/hr 05/26/24 11:52 IV .[id number] PRN Saline Flush Dextrose/Sodium Chloride 1,000 mls @ 125 mls/hr 05/26/24 14:00 05/27/24 10:59 Dextrose 5%/0.9% Nacl IV 05/27/24 13:59 125 mls/hr .Q8H ROSARIO Infusion Insulin Human Lispro 0 unit 05/26/24 12:00 05/27/24 12:25 Insulin Lispro 100 Unit/Ml Insuln.Pen SC Not Given Q6 [facility] Protocol Morphine Sulfate 2 - 4 mg 05/26/24 11:51 Morphine 2 Mg/Ml Syringe IV Q3H PRN PRN Pain Score 6-10 Nitroglycerin 0.4 mg 05/26/24 11:51 Nitroglycerin (Inpatient Use) 0.4 Mg Tab.Subl SL Q5M PRN CARDIAC/CHEST PAIN Ondansetron HCl 4 mg 05/26/24 11:51 Ondansetron 4 Mg/2 Ml Vial IV Q8H PRN PRN NAUSEA/VOMITING Oxycodone HCl 5 mg 05/26/24 11:51 Oxycodone 5 Mg Tablet PO Q4H PRN PRN Pain Score 4-10 Sodium Chloride 10 - 40 ml 05/26/24 11:52 0.9% Saline Lock 10 Ml Syringe IV UD PRN SALINE FLUSH PFSH Medical History Chest pain Insomnia Schatzki's ring Diverticular disease Nocturia more than twice per night Rosnethal's esophagus Segmental colitis associated with diverticulosis History of hiatal hernia History of diverticulitis Gastric reflux Cancer Arthritis Dysphagia Rosacea Bulging lumbar disc Constipation Lower abdominal pain Diabetes type 2, controlled Hyperlipidemia Hypertension Home Medications ?Medication ?Instructions ?Recorded ?Last Taken ?Type Lactobacillus acidophilus 250 1,000 mmu cells PO DAILY 06/12/22 05/25/24 History million cell capsule (Probiotic Acidophilus) aspirin 81 mg tablet,delayed 81 mg PO DAILY 06/12/22 05/25/24 History release losartan 50 mg tablet 50 mg PO DAILY 06/12/22 05/25/24 History multivitamin with minerals-folic 1 tab PO DAILY 06/12/22 05/25/24 History acid 200 mcg chewable tablet (Multivitamin Gummies) pioglitazone 30 mg tablet (Actos) 30 mg PO DAILY 06/12/22 05/25/24 History rosuvastatin 40 mg tablet (Crestor) 40 mg PO QHS 06/12/22 05/25/24 History pantoprazole 40 mg tablet,delayed 40 mg PO QAM #180 tabs 08/12/22 05/25/24 Rx release ciprofloxacin HCl 500 mg tablet 500 mg PO BID 10 days #20 tabs 05/24/24 05/25/24 Rx metronidazole 500 mg tablet 500 mg PO BID 10 days #20 tabs 05/24/24 05/25/24 Rx dicyclomine 10 mg capsule 10 mg PO BID #30 caps 05/25/24 05/25/24 Rx empagliflozin 25 mg tablet 25 mg PO DAILY 05/26/24 05/25/24 History (Jardiance) glipizide 10 mg tablet, extended 10 mg PO BID 05/26/24 05/25/24 History release 24 hr Allergy/AdvReac Type Severity Reaction Status Date / Time neomycin AdvReac Itching Verified 05/12/24 10:58 Family History Grandfather Diabetes Father Colon cancer Mother Cervical cancer Lung cancer Brother COPD (chronic obstructive pulmonary disease) Surgical History H/O wrist surgery Hx of colonoscopy History of esophagogastroduodenoscopy (EGD) Hx of eye surgery squamous cell removed Status post left knee replacement S/P cholecystectomy melanoma removed S/P total hysterectomy S/P arthroscopy of right shoulder S/P left knee arthroscopy Social History Smoking Status: Never smoker alcohol intake: never substance use type: does not use caffeine: No what type of physical activity do you participate in: walking and bicycling frequency: 5-6 times per week seatbelt use: always do you feel safe at home: Yes 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
[2024-05-27] MEDS: Lactated Ringers 1,000 ML 15 ML IV (13:00)
--- NOTE | 2024-05-27 13:06 | CASEMGMT ---
JOSIANE Attempted to meet with patient to review JOSHUA form but she had been taken earlier than expected for a procedure. Will attempt today at a later time. Mary Yuen DC Planning Asst.
--- NOTE | 2024-05-27 14:57 | PCM.POST.ANE ---
Anesthesia: Postop Eval I Current Vital Signs Temperature: 97.9 F Pulse Rate: 77 Blood Pressure: 124/70 Respiratory Rate: 18 Pulse Ox: 97 Oxygen Delivery Method: Room Air Assessment Airway patent: Yes Spontaneous unlabored respirations: Yes Mental status: Awake and Calm nausea: No Vomiting: No Anesthesia Complication: No Fluid Hydration Crystalloid volume administer (ml): 600 Total IV fluid infused: 600 Progress Note Anesthesia document: Postop Eval 1 completed: Yes
--- NOTE | 2024-05-27 14:59 | OP.CCLET_ITS ---
05/27/2024 Mike Mai Re : Colonoscopy procedure for Lyle Cabrera Dear Sergei This procedure was performed on May. My impressions and recommendations are as follows: Impressions : - Diverticulosis in the recto-sigmoid colon, in the sigmoid colon and in the descending colon. - Localized moderate inflammation was found in the recto-sigmoid colon and in the sigmoid colon secondary to ischemic colitis. Biopsied. - The examination was otherwise normal on direct and retroflexion views. Recommendations : - [facility]. - Resume previous diet. - No recommendation at this time regarding repeat colonoscopy due to age. - Continue present medications. My findings are described in the full procedure note, which is enclosed. If I can be of further assistance, please feel free to contact me at . Sincerely, Ivan Espinoza, 05/27/2024 2:59:01 PM This report has been signed electronically.
--- NOTE | 2024-05-27 14:59 | OP.COLON_ITS ---
Patient Name: Lyle Cabrera Procedure Date: 05/27/2024 2:17 PM Date of : 1950 Age: 74 Procedure: Colonoscopy Indications: Hematochezia Providers: Ivan Espinoza DO Medicines: Monitored Anesthesia Care Patient Profile: This is a 74 year old female. Refer to note in patient chart for documentation of history and physical. Last Colonoscopy: more than 10 years ago. Complications: No immediate complications. Procedure: Pre-Anesthesia Assessment: - Prior to the procedure, a History and Physical was performed, and patient medications and allergies were reviewed. The patient is competent. The risks and benefits of the procedure and the sedation options and risks were discussed with the patient. All questions were answered and informed consent was obtained. Patient identification and proposed procedure were verified by the physician in the pre-procedure area. Mental Status Examination: alert and oriented. Airway Examination: normal oropharyngeal airway and neck mobility. Respiratory Examination: clear to auscultation. CV Examination: normal. Prophylactic Antibiotics: The patient does not require prophylactic antibiotics. Prior Anticoagulants: The patient has taken no anticoagulant or antiplatelet agents except for NSAID medication. ASA Grade Assessment: II - A patient with mild systemic disease. After reviewing the risks and benefits, the patient was deemed in satisfactory condition to undergo the procedure. The anesthesia plan was to use monitored anesthesia care (MAC). Immediately prior to administration of medications, the patient was re-assessed for adequacy to receive sedatives. The heart rate, respiratory rate, oxygen saturations, blood pressure, adequacy of pulmonary ventilation, and response to care were monitored throughout the procedure. The physical status of the patient was re-assessed after the procedure. After I obtained informed consent, the scope was passed under direct vision. Throughout the procedure, the patient's blood pressure, pulse, and oxygen saturations were monitored continuously. The Colonoscope was introduced through the anus and advanced to the cecum, identified by appendiceal orifice and ileocecal valve. The colonoscopy was performed without difficulty. The patient tolerated the procedure well. The quality of the bowel preparation was adequate. The terminal ileum, ileocecal valve, appendiceal orifice, and rectum were photographed. Scope In: 2:30:44 PM Scope Withdrawal Time 0 hours 9 minutes 53 seconds Scope Out: 2:44:09 PM Total Procedure Duration Time 0 hours 13 minutes 25 seconds Findings: The perianal and digital rectal examinations were normal. Multiple small and large-mouthed diverticula were found in the recto-sigmoid colon, sigmoid colon and descending colon. Localized moderate inflammation characterized by erosions, erythema and friability was found in the recto-sigmoid colon and in the sigmoid colon. Biopsies were taken with a cold forceps for histology. Verification of patient identification for the specimen was done. Estimated blood loss was minimal. The exam was otherwise without abnormality on direct and retroflexion views. Impression: - Diverticulosis in the recto-sigmoid colon, in the sigmoid colon and in the descending colon. - Localized moderate inflammation was found in the recto-sigmoid colon and in the sigmoid colon secondary to ischemic colitis. Biopsied. - The examination was otherwise normal on direct and retroflexion views. Recommendation: - [facility]. - Resume previous diet. - No recommendation at this time regarding repeat colonoscopy due to age. - Continue present medications. Procedure Code(s): --- Professional --- 88731, Colonoscopy, flexible; with biopsy, single or multiple CPT copyright 2021 [employer]. All rights reserved. The codes documented in this report are preliminary and upon environmental services associate review may be revised to meet current compliance requirements. Ivan Espinoza DO 05/27/2024 2:59:01 PM This report has been signed electronically. Number of Addenda: 0 Note Initiated On: 05/27/2024 2:17 PM
--- NOTE | 2024-05-27 16:14 | PCM.POSTANE2 ---
Anesthesia Postop Eval I Sum Postop Eval Completion status Anesthesia document: Postop Eval 1 completed: Yes Anesthesia Postop Eval I Summary Anesthesia Postop Eval I Summary: Anesthesia Postop Eval I: Assessment Summary Airway patent Yes 05/27/24 14:57 [email or web address] Spontaneous unlabored Yes 05/27/24 14:57 [email or web address] respirations Mental status Awake,Calm 05/27/24 14:57 [email or web address] nausea No 05/27/24 14:57 [email or web address] Vomiting No 05/27/24 14:57 [email or web address] Anesthesia Postop Eval I: Fluid Summary Crystalloid volume administer 600 05/27/24 14:57 [email or web address] (ml) Colloids volume administered ( ml) Blood Product volume administered (ml) Total IV fluid infused 600 05/27/24 14:57 [email or web address] Anesthesia Postop Eval I: Summary Notes Anesthesia Complication No 05/27/24 14:57 [email or web address] Anesthesia Complication Comment: Post-operative progress note Anesthesia: Postop Eval II Evaluation Mental status: Awake Pain Level: 0 nausea: No Vomiting: No
[2024-05-27 18:10] LABS: Bedside Glucose 81 mg/dL (74-106)
[2024-05-27 23:23] LABS: Bedside Glucose 118 mg/dL (74-106)
[2024-05-28 03:00] VITALS: BP 144/72; PULSE 71; RESP 16; TEMP 36.6; O2SAT 98
[2024-05-28 07:08] LABS: Absolute Lymphocyte Count 1.56 X10^3/uL (0.83-4.51); Absolute Neutrophil Count 2.1 X10^3/uL (2.0-7.7); Basophil# 0.03 X10^3/uL; Basophil% 0.7 % (0-1); Eosinophil# 0.14 X10^3/uL; Eosinophils% 3.2 % (0-5); Hematocrit 35.6 % (37-47); Hemoglobin 11.6 g/dL (12.0-15.0); Lymphocyte # 1.56 X10^3/ul (0.83-4.51); Lymphocyte % 36.1 % (19-41); Mean Corp Hgb Conc 32.6 g/dL (32-36); Mean Corpuscular Volume 98.3 fL (81-99); Mean Platelet Vol. 10.8 fl (6.2-12.0); Monocyte# 0.44 X10^3/uL; Monocyte% 10.2 % (0-10); NRBC Flagged by Analyzer 0 % (0-5); Neutrophil # 2.14 X10^3/uL (2.7-7.7); Neutrophil % 49.6 % (47-70); Platelet Count 262 K/mm3 (150-450); RBC Distribution Width CV 11.6 % (11.6-14.6); Red Blood Count 3.62 M/mm3 (4.2-5.4); White Blood Count 4.3 K/mm3 (4.4-11.0)
[2024-05-28 07:36] LABS: Bedside Glucose 124 mg/dL (74-106)
[2024-05-28 08:02] LABS: Anion Gap 6 (5-15); BUN 10 mg/dL (7-18); BUN/Creat Ratio 15.1 RATIO (10-20); Calcium,Total 8.7 mg/dL (8.5-10.1); Chloride 111 mmol/L (98-107); Creatinine, Serum 0.66 mg/dL (0.55-1.02); EST Glomerular Filtration Rate 92 mL/min (>60); Est Glom Filt Rate - Afr Amer 112 mL/min (>60); Estimated Creatinine Clearance 62.86 ml/min; Glucose 129 mg/dL (74-106); Potassium 3.6 mmol/L (3.5-5.1); Sodium Level 140 mmol/L (136-145)
--- NOTE | 2024-05-28 08:13 | CASEMGMT ---
Addendum entered by Mary Yuen 05/28/24 11:23: Correction to previous note. Joshua was completed on 05/27/24. Mary Yuen DC Planning Asst. Original Note: Met with patient on 05/25/24 @ 4:25p to complete JOSHUA form. JOSHUA form explained to patient who voiced understanding and signed form. Original form placed in pt?s chart and copy provided to patient. Mary Yuen, Discharge Planning Asst
[2024-05-28 09:02] VITALS: BP 133/54; PULSE 65; RESP 18; TEMP 36.3; O2SAT 98
--- NOTE | 2024-05-28 10:00 | CASEMGMT ---
Addendum entered by Zoraida Morrison 05/28/24 12:34: RN?CM?ASSESSMENT Strata: 2 Care providers, pharmacy, and demographics verified/updated at this time. PCP: Dr Mai Specialists: Dr PhelpsGI, Dr Ansari-[employer], Dr Geller-ortho, Dr Craft-wood repatcher in [place]. Preferred Pharmacy: Flagyl and Cipro have been e-scribed to [facility] retail pharmacy. Per pharmacy, Flagyl too soon to be filled--can be filled tomorrow 05/29. Cipro also too soon to be filled--can be filled 06/01. Pt made aware of both. She states she has both of these @ home that she picked up on Friday and she has enough for now. She is aware frequency has changed. She asked for Flagyl and Cipro both to be transferred to [facility] in [place] so she can pick them up when they are available/when she runs out of what she currently has. Call placed to [facility] in [place] and they were made aware to call [facility] pharmacy to have Rx's transferred to them. [facility] Prescription Benefit:?yes Living Will/HPOA:? Has LW and HCPOA, who is her nephew, Estuardo. LNOK: NewEstuardo soliz/PHUONG. Living Arrangements: Lives alone. Indpendent. Transportation:?Pt states drives self and states no transportation concerns at this time.? Pt has a ride home. DME: ? Denies using any DME and denies needs.? HHC/SNF: No hx of either Pt wishes to return home and states has no concerns with going home. PLAN:??Home. Original Note: GLENDY NUÑEZ NOTE: Per Dr Doherty, pt to discharge home today. GLENDY NUÑEZ to room. Introduced self and role. Pt sitting up in chair. Pt has been up ad jarod in room. Pt independent @ home, uses no DME, denies need for DME, denies need for PT/OT eval prior to discharge, and denies discharge needs. Would like to get any meds @ dc from [facility] retail pharmacy and would like them delivered to her room. Will notify RN. Padmini LUGO RN, CM
--- NOTE | 2024-05-28 10:25 | PCM.DC.SUM ---
Providers Date of Admission: 05/27/24 Date of Discharge: 05/28/24 Primary Care Physician: Dr. Mike Mai MD Consultations 05/26/24 16:50 Consult: Gastroenterology Routine Consulting Provider: [facility] Reason for Consult: rectal bleeding, acute diverticulitis EMERGENT Consult: No MD Notified: Yes Date Notified: 05/26/24 Time Notified: 16:50 Method of Notification: Text Reason For Visit: ACUTE DIVERTICULITIS, RECTAL BLEEDING Diagnosis Discharge Diagnosis (1) Diverticulitis of sigmoid colon: Status: Acute Code(s): K57.32 - Diverticulitis of large intestine without perforation or abscess without bleeding (2) GI (gastrointestinal bleed): Status: Acute Code(s): K92.2 - Gastrointestinal hemorrhage, unspecified Plan #Acute lower GI bleed due to acute diverticulitis Admit to [facility] under observation. She was admitted with a complaint of abdominal pain and rectal bleeding. She had been diagnosed with acute diverticulitis the day before and started on oral ciprofloxacin and metronidazole by her stone belt sander. She had 3 episodes of rectal bleeding on the day of admission and says she notices some clots also. CT of the abdomen and pelvis done the day before admission showed acute sigmoid diverticulitis. still NPO. ON IV PPI. Continue IV metronidazole and ciprofloxacin on PO tylenol, p.o oxycodone and IV morphine prn for pain. IV Zofran. for colonoscopy today #Hyperlipidemia: On statin Hypertension: BP meds on hold since she is NPO. IV hydralazine as needed. #Type 2 diabetes mellitus: Hold Lantus and oral medications as she is NPO. Insulin sliding scale. Accu-Cheks every 6 hourly DVT prophylaxis: SCDs due to GI bleed. CODE STATUS: Full code Medications at Discharge Home Medications Lactobacillus acidophilus 250 million cell capsule (Probiotic Acidophilus) 1,000 mmu cells PO DAILY 06/12/22 aspirin 81 mg tablet,delayed release 81 mg PO DAILY 06/12/22 losartan 50 mg tablet 50 mg PO DAILY 06/12/22 multivitamin with minerals-folic acid 200 mcg chewable tablet (Multivitamin Gummies) 1 tab PO DAILY 06/12/22 pioglitazone 30 mg tablet (Actos) 30 mg PO DAILY 06/12/22 rosuvastatin 40 mg tablet (Crestor) 40 mg PO QHS 06/12/22 pantoprazole 40 mg tablet,delayed release 40 mg PO QAM #180 tabs 08/12/22 dicyclomine 10 mg capsule 10 mg PO BID #30 caps 05/25/24 empagliflozin 25 mg tablet (Jardiance) 25 mg PO DAILY 05/26/24 glipizide 10 mg tablet, extended release 24 hr 10 mg PO BID 05/26/24 ciprofloxacin HCl 500 mg tablet 500 mg PO Q12H #14 tabs 05/28/24 metronidazole 500 mg tablet 500 mg PO Q8H #21 tabs 05/28/24 Hospital Course Operations None Procedures Colonoscopy Summary of Care Provided Minutes Spent on Discharge: 55 Hospital Course: GREER WEBB, is a 74 F with a PMH as outlined who presents via the ED on 05/26/2024 with a compaltn of bloody stools x 3 since morning of admission. She had been started on treatment for diverticulitis 5 days prior to admission. SHe was on PO ciprofloxacin and metronidazole which had been prescribed by her stone belt sander. She went to see her GI the day before admission and says she had a CT of the abdomen and blood work done. On the day of admission, she noted blood in her stool three times and so decided to come in to the ED. She denied any fever, chills, nausea, vomiting or any other symptoms. Review of systems was otherwise negative. Vitals in the ED were BP of 140/65, NE of 60, RR of 16 and temp of 96.6F. She was saturating at 98% on room air. CBC showed hb of 13.7, WBC of 4.9 and platelets of 296. CHemistry showed sodium of 138, potassium of 3.8, Cr of 0.82. CT of the abdomen and pelvis done on 05/25/2024 showed evidence of sigmoid diverticulitis with sigmoid diverticulosis and thickening of the surrounding mesentery and colonic wall with inflammatory changes. She is was admitted to be managed for lower GI bleed likely due to acute sigmoid diverticulitis. She was kept n.p.o. and gastroenterology was consulted. She was started on IV ciprofloxacin and metronidazole. Gastroenterology saw her and she had colonoscopy which showed diverticulosis in the rectosigmoid colon, sigmoid colon and descending colon. There was also localized moderate inflammation in the rectosigmoid colon and in the sigmoid colon secondary to ischemic colitis. Abdominal pain improved and she felt much better. She was started on clear liquids diet and tolerated it. She was advanced to a full liquid diet and also tolerated it. She remained stable and was discharged home on 05/28/2024. She was discharged on p.o. ciprofloxacin and p.o. metronidazole for 7-day course. She was counseled to remain on a full liquid diet for 2 to 3 days and advance to soft diet as tolerated and to gently advance that over 2 to 3 days to regular diet as tolerated. Patient was seen and examined prior to discharge. She felt much better and had no complaints. She had an uneventful night and review of systems otherwise negative. Labs and vitals reviewed. Home medication reviewed and reconciled. Physical Exam Const alert, oriented x3 and no apparent distress General Appearance: cooperative, comfortable and well kempt Orientation / Consciousness: awake Exam Limitations: no limitations HEENT normocephalic, head/scalp atraumatic, hearing grossly normal bilaterally and moist oral mucous membranes Mouth: oral and palatal mucosa normal Eyes PERRL, EOMs intact bilaterally and conjunctivae normal Neck no lymphadenopathy and supple Resp normal respiratory effort, normal air movement, no retractions, no use of accessory muscles and clear to auscultation bilaterally Cardio regular rate, regular rhythm, S1 normal heart sound, S2 normal heart sound and no murmurs GI normal to inspection, nondistended, normoactive bowel sounds, soft to palpation, non-tender and non-distended Extremity normal to inspection, full ROM, normal capillary refill and no clubbing, cyanosis or edema General Extremity: no tenderness to palpation of joints or extremities Skin no rashes or lesions noted General Skin Exam: no breakdown Neuro oriented x3, CN's II-XII intact bilaterally, moves all extremities and no focal motor deficits Sensorium / Orientation: awake and alert Motor Exam: strength 5/5 throughout and general weakness Psych thought process normal, cooperative and affect normal Appearance: appropriate Weight / BMI Weight Weight: 174 lb 13.225 oz Body Mass Index (BMI) 29.9 ABG / Lab / Microbiology Data 05/28/24 06:24 05/28/24 06:24 Laboratory: Laboratory Results - last 24 hr 05/27/24 11:52: POC Glucose 147 H 05/27/24 17:52: POC Glucose 81 05/27/24 23:04: POC Glucose 118 H 05/28/24 06:24: WBC 4.3 L, RBC 3.62 L, Hgb 11.6 L, Hct 35.6 L, MCV 98.3, MCH 32.0, MCHC 32.6, RDW Std Deviation 42.0, RDW Coeff of Sisi 11.6, Plt Count 262, MPV 10.8, Immature Gran % (Auto) 0.200, Neut % (Auto) 49.6, Lymph % (Auto) 36.1, [place] % (Auto) 10.2 H, Eos % (Auto) 3.2, Baso % (Auto) 0.7, Absolute Neuts (auto) 2.1, Absolute Lymphs (auto) 1.56, Nucleated RBC % 0, Sodium 140, Potassium 3.6, Chloride 111 H, Carbon Dioxide 23.0, Anion Gap 6, BUN 10, Creatinine 0.66, Estim Creat Clear Calc 62.86, Est GFR (MDRD) Af Amer 112, Est GFR (MDRD) Non-Af 92, BUN/Creatinine Ratio 15.1, Glucose 129 H, Calcium 8.7 05/28/24 07:13: POC Glucose 124 H D/C Instructions Discharge Diet: - (full liquid diet, then advance to soft and onwards to regular diet as tolerated.) Discharge Activity: Return to Normal Activity Weight Bearing Status: Weight bearing as tolerated Call your doctor if you observe: Fever of 101 or Higher, Shortness of breath, Dizziness, Swelling in the ankles, Chest pain and Uncontrolled pain Meaningful Use Info Meaningful Use Meaningful Use Diagnoses (Choose all that apply): None applicable Ischemic Stroke Statin Dosing Therapy Reference: STATIN DOSE THERAPY REFERENCE: * Patients > 75 years receive moderate or high dose statin therapy. * Patients 75 years or YOUNGER should receive HIGH intensity statin dose unless contraindicated. You will be required to document reason for non-treatment if statin daily dose does not meet guidelines. HIGH DOSE STATIN THERAPY DAILY Atorvastatin > than or = to 40 mg Rosuvastatin > than or = to 20 mg Amlodipine + Atorvastatin > than or = to 2.5/40 mg Ezetimibe + Simvastatin 10/80 mg Simvastatin 80mg Discharge Plan Admission Admit Date/Time: 05/27/24 17:29 Primary Reason for Your Visit: acute diverticulitis Attending Provider: Matilde Doherty Primary Care Provider: Mike Mai Instructions Patient Instructions: Diverticulitis Dc Additional Instructions / Restrictions: to remain on full liquid diet for the next 2-3 days, and advance to soft diet as tolerated. Advance from soft diet to regular diet as tolerated. Discharge Orders/Prescriptions Prescriptions: New ciprofloxacin HCl 500 mg tablet 500 mg PO Q12H Qty: 14 0RF metronidazole 500 mg tablet 500 mg PO Q8H Qty: 21 0RF Continued dicyclomine 10 mg capsule 10 mg PO BID Qty: 30 2RF losartan 50 mg Tablet 50 mg PO DAILY aspirin 81 mg Tablet,Delayed Release (Dr/Ec) 81 mg PO DAILY pioglitazone [Actos] 30 mg Tablet 30 mg PO DAILY rosuvastatin [Crestor] 40 mg Tablet 40 mg PO QHS multivit with min-folic acid [Multivitamin Gummies] 200 mcg Tablet,Chewable 1 tab PO DAILY Probiotic Acidophilus 1.5 mg (250 million cell) Capsule 1,000 mmu cells PO DAILY Jardiance 25 mg tablet 25 mg PO DAILY glipizide 10 mg tablet extended release 24hr 10 mg PO BID pantoprazole 40 mg tablet,delayed release (DR/EC) 40 mg PO QAM Qty: 180 3RF Discontinued metronidazole 500 mg tablet 500 mg PO BID 10 Days Qty: 20 0RF Patient Comments: PT STARTED YESTERDAY (05/25/24) ciprofloxacin HCl 500 mg tablet 500 mg PO BID 10 Days Qty: 20 0RF Patient Comments: PT STARTED YESTERDAY (05/25/24) Referrals / Follow Up: Mike Mai MD [Primary Care Provider] - Within 1 Week Ivan Espinoza DO [Med Staff - Active Staff] - Within 2 Weeks Disposition Disposition (needs filled in before D/C Order can be placed): Home, Self Care Charges/Coding Visit Charges Inpatient E&M: 06550 Disch Hosp >30min
[2024-05-28] MEDS: Ciprofloxacin 400 MG/200 ML BAG 200 MG IV (10:58)
[2024-05-28] MEDS: 0.9% Saline Lock 10 ML Syringe IV (11:03)
[2024-05-28 12:32] LABS: Bedside Glucose 254 mg/dL (74-106)
[2024-05-28] MEDS: Pantoprazole Sodium 40 MG in 0.9% Normal Saline (100mL MB+) 100 ML 330 MG IV (12:42)
[2024-05-28 14:35] VITALS: BP 145/71; PULSE 63; RESP 18; TEMP 36.6; O2SAT 100
== END 2024-05-28 15:00 | disposition home or self-care (01) | DRG 378 ==
LOC: ED 10:56 → MS3 11:13
PROVIDERS: Anesthesiology; Internal Medicine Gastroenterology; Admitting Provider Student in an Organized Health Care Education/Training Program; Emergency Provider Emergency Medicine; PCP Internal Medicine; Visit Provider Student in an Organized Health Care Education/Training Program
PROC: 0DJD8ZZ Inspection of Lower Intestinal Tract, Via Natural or Artificial Opening Endoscopic (ICD-10-PCS; CPT 45378; principal; 2024-05-27 13:55)
DX: K57.33 Diverticulitis of large intestine without perforation or abscess with bleeding (principal); K55.9 Vascular disorder of intestine, unspecified; K50.10 Crohn's disease of large intestine without complications; E11.9 Type 2 diabetes mellitus without complications; I10 Essential (primary) hypertension; E78.5 Hyperlipidemia, unspecified; K21.9 Gastro-esophageal reflux disease without esophagitis; K57.30 Diverticulosis of large intestine without perforation or abscess without bleeding; Z79.84 Long term (current) use of oral hypoglycemic drugs; R53.1 Weakness; Z80.0 Family history of malignant neoplasm of digestive organs; Z79.82 Long term (current) use of aspirin; Z79.899 Other long term (current) drug therapy; Z96.652 Presence of left artificial knee joint; Z90.49 Acquired absence of other specified parts of digestive tract; Z90.710 Acquired absence of both cervix and uterus
CPT/HCPCS: 36415; 74177; 80048; 80053; 82962; 83036; 83615; 85025; 85652; 86140; 88305; 93005; 99285; J7030; J7050; J7120; Q9967; A4216; J0744; J2405

== ENCOUNTER → 2024-06-10 | Outpatient (CLI) | payer MEDICARE, SELFPAY ==
--- NOTE | 2024-06-10 07:16 | ECHOD_ITS ---
Reason For Study: Chest Pain Procedure This was a 2D Doppler, Color Flow transthoracic echocardiogram. Exam performed in department. Left Ventricle Normal LV size. Left ventricular systolic function is normal. The left ventricular ejection fraction is 60 %. Stage 1 diastolic dysfunction. No regional wall motion abnormalities noted. Right Ventricle Normal RV size. Normal systolic function. Atria Normal left atrium. Normal right atrium. Mitral Valve Normal mitral valve. Tricuspid Valve Normal tricuspid valve. Aortic Valve Trisinus/trileaflet aortic valve. Pulmonic Valve Normal pulmonic valve. Great Vessels Normal aortic root. The pulmonary artery is normal size. Normal inferior vena cava. Pericardium/Pleural No pericardial effusion. MMode/2D Measurements & Calculations LVIDd: 4.4 cm IVSd: 1.1 cm Ao root diam: 3.2 cm LVIDs: 2.4 cm LVPWd: 1.3 cm LA dimension: 3.7 cm RVDd: 3.8 cm FS: 44.6 % LAV(MOD-bp): 51.1 ml LVAd ap4: 28.7 cm2 SV(MOD-sp4): 50.7 ml LAV(MOD-bp) Indexed: 27.4 ml/m2 LVLd ap4: 7.9 cm LAV(MOD-sp2): 49.0 ml EDV(MOD-sp4): 87.7 ml LAV(MOD-sp4): 52.5 ml EDV(sp4-el): 88.8 ml LVAs ap4: 16.7 cm2 LVLs ap4: 6.4 cm ESV(MOD-sp4): 36.9 ml ESV(sp4-el): 37.0 ml EF(MOD-sp4): 57.8 % EF(sp4-el): 58.3 % SV(sp4-el): 51.8 ml LA A4 area: 18.5 cm2 RA A4 area: 17.5 cm2 TAPSE: 2.1 cm Time Measurements MV dec time: 0.21 sec Doppler Measurements & Calculations MV E max juan: 71.3 cm/sec Lat Peak E' Juan: 7.4 cm/sec Med Peak E' Juan: 8.9 cm/sec MV A max juan: 79.5 cm/sec E/E' lat: 9.6 E/E' med: 8.0 MV E/A: 0.90 MV V2 max: 95.5 cm/sec MV P1/2t max juan: 86.6 cm/sec Ao V2 max: 115.9 cm/sec MV max P.6 mmHg MV P1/2t: 79.5 msec Ao max P.4 mmHg MV V2 mean: 51.1 cm/sec MV dec slope: 319.2 cm/sec2 Ao V2 mean: 77.4 cm/sec MV mean P.2 mmHg Ao mean P.8 mmHg MV V2 VTI: 33.8 cm MVA(P1/2t): 2.8 cm2 Ao V2 VTI: 30.6 cm AV (velocity ratio): 0.80 LV V1 max: 87.3 cm/sec PA V2 max: 115.8 cm/sec LV V1 max P.1 mmHg PA max PG (full): 3.0 mmHg LV V1 mean P.6 mmHg LV V1 mean: 58.6 cm/sec LV V1 VTI: 24.5 cm ECHO/Echo Complete Interpretation Summary Normal LV size. Left ventricular systolic function is normal. The left ventricular ejection fraction is 60 %. Stage 1 diastolic dysfunction. Ordering Physician: Virgilio Ballard Referring Physician: Virgilio Ballard Performed By: Agustín Lou RCS
--- NOTE | 2024-06-10 15:50 | STRESSREP ---
Stress Test Report Exercise myocardial perfusion stress test. 74-year-old lady with a history of chest pain Stress protocol: Resting EKG demonstrates normal sinus rhythm with a rate of 58 bpm resting blood pressure is 132/70 mmHg. The patient exercised according to the regular Juan protocol for a total duration of 6 minutes attaining a maximum heart rate of 127 bpm which was 86 beats of maximum predicted heart rate; the maximum workload was 7 metabolic equivalents. At rest there were no ST or T wave changes noted to suggest ischemia and at peak exercise upsloping ST changes only were noted which did not meet the criteria for ischemia. No clinical angina was noted the test was terminated due to the target heart rate being achieved/fatigue. The peak blood pressure was 174/70 mmHg. Rate-pressure product was 22,000. Myocardial perfusion protocol. 11.2 mCi of technetium 99m sestamibi was injected at rest. The patient exercised according to regular Juan protocol for total duration of 6 minutes and at peak exercise 35 mCi of technetium 99m sestamibi was injected stress images were obtained stress and rest images were reconstructed in comparing the short axis vertical long and horizontal long axis. Gated images were also obtained. Perfusion SPECT analysis: Review of the stress images demonstrate normal uptake of tracer noted in all areas of the myocardium. The resting images similarly demonstrate normal uptake of tracer noted in all areas of the myocardium. No areas of reversibility are noted to suggest ischemia no previous infarct was noted. Gated SPECT analysis: The gated ejection fraction is normal. Conclusion: Normal exercise myocardial perfusion stress test at a moderate workload Preserved ejection fraction.
== END | disposition home or self-care (01) ==
LOC: CVS 07:10
PROVIDERS: PCP Internal Medicine; Referring Provider Internal Medicine Cardiovascular Disease; Visit Provider Internal Medicine Cardiovascular Disease
DX: I10 Essential (primary) hypertension (principal); R07.9 Chest pain, unspecified
CPT/HCPCS: 78452; 93017; 93306; A9500; A4216

== ENCOUNTER → 2024-06-14 | Outpatient (CLI) | payer MEDICARE, SELFPAY ==
[2024-06-14 12:15] LABS: Absolute Lymphocyte Count 1.73 X10^3/uL (0.83-4.51); Absolute Neutrophil Count 3.7 X10^3/uL (2.0-7.7); Basophil# 0.05 X10^3/uL; Basophil% 0.8 % (0-1); Eosinophil# 0.12 X10^3/uL; Hematocrit 42.2 % (37-47); Hemoglobin 13.7 g/dL (12.0-15.0); Lymphocyte # 1.73 X10^3/ul (0.83-4.51); Lymphocyte % 28.7 % (19-41); Mean Corp Hgb Conc 32.5 g/dL (32-36); Mean Corpuscular Hgb 32.2 pg (27.0-32.0); Mean Corpuscular Volume 99.3 fL (81-99); Monocyte# 0.45 X10^3/uL; Monocyte% 7.5 % (0-10); NRBC Flagged by Analyzer 0 % (0-5); Neutrophil # 3.65 X10^3/uL (2.7-7.7); Neutrophil % 60.7 % (47-70); Platelet Count 208 K/mm3 (150-450); RBC Distribution Width CV 12.6 % (11.6-14.6); RBC Distribution Width SD 46.4 fl (35.1-43.9); Red Blood Count 4.25 M/mm3 (4.2-5.4)
[2024-06-14 12:41] LABS: Vitamin B12 590 pg/mL (211-911)
[2024-06-14 13:26] LABS: Iron 164 ug/dL (50-170); Iron Binding Capacity,Total 248 ug/dL (250-450)
== END | disposition home or self-care (01) ==
LOC: LAB 10:51
PROVIDERS: PCP Internal Medicine; Referring Provider Student in an Organized Health Care Education/Training Program; Visit Provider Student in an Organized Health Care Education/Training Program
DX: K57.90 Diverticulosis of intestine, part unspecified, without perforation or abscess without bleeding (principal); D64.9 Anemia, unspecified
CPT/HCPCS: 36415; 82607; 82746; 83540; 83550; 85025

== ENCOUNTER → 2024-06-17 | Outpatient (CLI) | payer MEDICARE, SELFPAY ==
[2024-06-21 03:13] LABS: Pancreatic Elastase, Fecal 789 (>200)
[2024-06-22 17:08] LABS: Calprotectin, Stool 48 ug/g (0-120)
== END | disposition home or self-care (01) ==
LOC: LABSPEC 12:10
PROVIDERS: PCP Internal Medicine; Referring Provider Student in an Organized Health Care Education/Training Program; Visit Provider Student in an Organized Health Care Education/Training Program
DX: K50.10 Crohn's disease of large intestine without complications (principal); K57.30 Diverticulosis of large intestine without perforation or abscess without bleeding
CPT/HCPCS: 82653; 83630; 83993

== ENCOUNTER → 2025-05-31 | Outpatient (CLI) | payer MEDICARE, SELFPAY ==
--- OUTSIDE RECORDS SUMMARY | 2025-05-31 06:22 | XMS RPT_ITS | CCD ---
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 Alissa Mai Primary Care Provider Dr. Alissa Mai Referring Provider Osbaldo MENDEZ, MANAGER MOTOR-C Aura Xie Attending Provider [phone] Dr. Molly Ansari Attending Provider Dr. Ivan Espinoza Attending Provider FriendDr. Love Other Provider JOEY GARCIA MD Attending Unavailable JOEY GARCIA MD Primary Care Unavailable JOEY GARCIA MD Admitting Unavailable ALISSA MAI MD Consulting Unavailable PROVIDER, UNKNOWN Consulting Unavailable PROVIDER, UNKNOWN Consulting Unavailable PROVIDER, UNKNOWN Consulting Unavailable JOEY GARCIA MD Referring Unavailable ALISSA MAI MD Attending Unavailable ALISSA MAI MD Admitting Unavailable ALISSA MAI MD Primary Care Unavailable ALISSA MAI MD Consulting Unavailable PROVIDER, UNKNOWN Consulting Unavailable PROVIDER, UNKNOWN Consulting Unavailable PROVIDER, UNKNOWN Consulting Unavailable FABIAN IVERSON MD Attending Unavailable FABIAN IVERSON MD Primary Care Unavailable FABIAN IVERSON MD Admitting Unavailable ALISSA MAI MD Consulting Unavailable PROVIDER, UNKNOWN Consulting Unavailable PROVIDER, UNKNOWN Consulting Unavailable PROVIDER, UNKNOWN Consulting Unavailable ALISSA MAI MD Attending Unavailable ALISSA MAI MD Consulting Unavailable ALISSA MAI MD Admitting Unavailable ALISSA MAI MD Primary Care Unavailable PROVIDER, UNKNOWN Consulting Unavailable PROVIDER, UNKNOWN Consulting Unavailable PROVIDER, UNKNOWN Consulting Unavailable ALISSA MAI MD Attending Unavailable ALISSA MAI MD Consulting Unavailable ALISSA AMI MD Admitting Unavailable ALISSA MAI MD Primary Care Unavailable PROVIDER, UNKNOWN Consulting Unavailable PROVIDER, UNKNOWN Consulting Unavailable PROVIDER, UNKNOWN Consulting Unavailable January POTATO CHIP PACKAGING MACHINE OPERATOR Attending Unavailable KIMJanuary POTATO CHIP PACKAGING MACHINE OPERATOR Primary Care Unavailable January POTATO CHIP PACKAGING MACHINE OPERATOR Admitting Unavailable MAISHA CLARK K Consulting Unavailable PROVIDER, UNKNOWN Consulting Unavailable ALISSA MAI MD Attending Unavailable ALISSA MAI MD Admitting Unavailable ALISSA MAI MD Primary Care Unavailable ALISSA MAI MD Consulting Unavailable PROVIDER, UNKNOWN Consulting Unavailable PROVIDER, UNKNOWN Consulting Unavailable PROVIDER, UNKNOWN Consulting Unavailable January POTATO CHIP PACKAGING MACHINE OPERATOR Primary Care Unavailable January POTATO CHIP PACKAGING MACHINE OPERATOR Admitting Unavailable NAM, CLARK K Consulting Unavailable January POTATO CHIP PACKAGING MACHINE OPERATOR Attending Unavailable PROVIDER, UNKNOWN Consulting Unavailable JOEY GARCIA MD Admitting Unavailable JOEY GARCIA MD Attending Unavailable JOEY GARCIA MD Primary Care Unavailable NBA FERRERAE K Consulting Unavailable PROVIDER, UNKNOWN Consulting Unavailable JEOY GARCIA MD Admitting Unavailable JOEY GARCIA MD Attending Unavailable JOEY GARCIA MD Primary Care Unavailable ALISSA MAI MD Consulting Unavailable PROVIDER, UNKNOWN Consulting Unavailable PROVIDER, UNKNOWN Consulting Unavailable PROVIDER, UNKNOWN Consulting Unavailable ALISSA MAI MD Attending Unavailable ALISSA MAI MD Admitting Unavailable ALISSA MAI MD Primary Care Unavailable ALISSA MAI MD Consulting Unavailable PROVIDER, UNKNOWN Consulting Unavailable PROVIDER, UNKNOWN Consulting Unavailable PROVIDER, UNKNOWN Consulting Unavailable Dante Staples Attending Unavailable Fabian Iverson Referring Unavailable Latouf, Burtros Primary Care Unavailable Dante Staples Attending Unavailable Fabian Iverson Referring Unavailable Latouf, Burtros Primary Care Unavailable Fabian Iverson Attending Unavailable Clifton, Víctor Referring Unavailable Latouf, Burtros Primary Care Unavailable Fabian Iverson Attending Unavailable Clifton, Víctor Referring Unavailable Latouf, Burtros Primary Care Unavailable Fabian Iverson Attending Unavailable Clifton, Víctor Referring Unavailable Latouf, Burtros Primary Care Unavailable Fabian Iverson Attending Unavailable Clifton, Víctor Referring Unavailable Latouf, Burtros Primary Care Unavailable Dante Staples Attending Unavailable Clifton, Víctor Referring Unavailable Latouf, Burtros Primary Care Unavailable Dante Staples Attending Unavailable Fabian Iverson J Referring Unavailable Latouf, Burtros Primary Care Unavailable Dante Staples Attending Unavailable Fabian Iverson Referring Unavailable Latouf, Burtros Primary Care Unavailable Latouf, Butros Primary Care Unavailable Lady Tsang Attending Unavailable Lady Tsang Referring Unavailable KallillianattiDiamondSaida Primary Care Unavailable , January Attending Unavailable [place]jan[place] Referring Unavailable Latouf, Butros Referring Unavailable Latouf, Butros Primary Care Unavailable Lady Tsang Attending Unavailable Enllie, Evadale Attending Unavailable Nellie, Evadale Referring Unavailable Nellie, Virgilio Consulting Unavailable Latouf, Butros Primary Care Unavailable Latouf, Butros Referring Unavailable Lady Tsang Attending Unavailable Latouf, Butros Primary Care Unavailable Latouf, Butros Primary Care Unavailable Latouf, Butros Referring Unavailable Molly Ansari Attending Unavailable Latouf, Butros Primary Care Unavailable Nellie, Evadale Attending Unavailable Nellie, Virgilio Referring Unavailable Latouf, Butros Primary Care Unavailable Lady Tsang Attending Unavailable Lady Tsang Referring Unavailable Allergies Allergy Classification Reported Allergen(s) Allergy Type Date of Onset Reaction(s) Facility (1 source) Neomycin Drug Allergy 06-17-2022 Itching [facility] Work Phone: (1 source) Neomycin Drug Allergy [facility] Repository (1 source) Neomycin Drug Allergy 06-03-2024 [facility] Repository Medications Current Medications Medication Drug Class(es) Dates Sig (Normalized) Sig (Original) aspirin 81 mg delayed release oral tablet (6 sources) Platelet Aggregation Inhibitor, Nonsteroidal Anti-inflammatory Drug Start: 06-12-2022 take 1 tablet by mouth once daily Aspirin (Aspir-81) 81 mg Tablet,Delayed Release (Dr/Ec) Active 81 MG PO DAILY June 12, 2022 12:00am Start: 06-15-2014 End: 04-19-2022 take 81 mg by mouth once daily Aspirin Discontinued 81 MG PO DAILY@0800 June 15, 2014 12:00am April 19, 2022 11:36am take 1 tablet by cindi th once daily ASPIRIN 81 MG TBEC One tablet by mouth daily ASPIRIN [id number] Nilda Branch [facility] glipiZIDE 10 mg oral tablet (5 sources) Sulfonylurea Start: 06-12-2022 take 10 mg by mouth twice daily Glipizide Active 10 MG PO TWICE A DAY June 12, 2022 12:00am Start: 02-16-2018 End: 05-30-2022 take 10 mg by mouth twice daily Glipizide Discontinued 10 MG PO TWICE A DAY February 16, 2018 11:00am May 30, 2022 9:36am Start: 06-15-2014 End: 02-16-2018 take 2.5 mg by mouth once daily Glipizide Discontinued 2.5 MG PO DAILY June 15, 2014 12:00am February 16, 2018 11:03am lactobacillus acidophilus 1. 5 mg oral capsule (3 sources) Start: 06-12-2022 Lactobacillus Acidophilus (Probiotic Acidophilus) 1.5 mg (250 million cell) Capsule Active 1000 MMU CELLS PO DAILY June 12, 2022 12:00am Start: 02-16-2018 End: 05-24-2021 Lactobacillus Acidophilus (A cidophilus) capsule Discontinued 5000 MMU CELLS PO AT BEDTIME February 16, 2018 12:00am May 24, 2021 1:09pm losartan potassium 50 mg oral tablet (5 sources) Angiotensin 2 Receptor Ludmila Start: 06-12-2022 take 50 mg by mouth once daily Losartan Active 50 MG PO DAILY June 12, 2022 12:00am Start: 05-24-2021 End: 05-30-2022 take 50 mg by mouth once daily Losartan Discontinued 5 0 MG PO DAILY May 24, 2021 12:00am May 30, 2022 9:36am Start: 06-15-2014 End: 05-24-2021 take 25 mg by mouth once daily Losartan Discontinued 2 5 MG PO DAILY June 15, 2014 12:00am May 24, 2021 1:08pm mesalamine 1200 mg delayed release oral tablet (5 sources) Aminosalicylate Start: 06-12-2022 take 2.4 g by mouth once daily Mesalamine Active 2.4 GM PO DAILY June 12, 2022 12:00am Start: 04-19-2022 End: 05-30-2022 take 2 tablets by mouth once daily, then take 1 tablet by mouth once daily Mesalamine Discontinued 0 PO DAILY April 29, 2022 5:44pm May 30, 2022 9:36am take 2 tabs daily for 4 more weeks, then take 1 tab daily for 6 wks Multivit With Min-Folic Acid (Multivitamin Gummies) 200 mcg Tablet,Chewable (1 source) Start: 06-12-2022 take 1 tablet by mouth once daily Multivit With Min-Folic Acid (Multivitamin Gummies) 200 mcg Tablet,Chewable Active 1 TABLET PO DAILY June 12, 2022 12:00am pioglitazone 30 mg oral tablet (3 sources) Peroxisome Proliferator Receptor alpha Agonist, Peroxisome Proliferator Receptor gamma Agonist, Thiazolidinedione Start: 06-12-2022 take 1 tablet by mouth once daily Pioglitazone (Actos) 30 mg Tablet Active 30 MG PO DAILY June 12, 2022 12:00am Start: 05-24-2021 End: 05-30-2022 take 30 mg by mouth once daily Pioglitazone Discontinu ed 30 MG PO DAILY May 24, 2021 12:00am May 30, 2022 9:36am rosuvastatin calcium 40 mg oral tablet (3 sources) HMG-CoA Reductase Inhibitor Start: 06-12-2022 take 1 tablet by mouth at bedtime Rosuvastatin (Crestor) 40 mg Tablet Active 40 MG PO AT BEDTIME June 12, 2022 12:00am Start: 05-24-2021 End: 05-30-2022 take 1 tablet by mouth once daily Rosuvastatin (Crestor) 40 mg tablet Discontinued 40 MG PO DAILY May 24, 2021 12:00am May 30, 2022 9:36am Completed/Discontinued Medications Medication Drug Class(es) Dates Sig (Normalized) Sig (Original) 8 hr acetaminophen 650 mg extended release oral tablet (2 sources) Start: 02-16-2018 End: 05-24-2021 Acetaminophen (Tylenol Arthritis Pain) 650 mg tablet extended release Discontinued 650 MG PO NEEDED February 16, 2018 12:00am May 24, 2021 1:09pm acetaminophen 300 mg / HYDROcodone bitartrate 5 mg oral tablet (2 sources) Opioid Agonist Start: 06-22-2014 End: 02-16-2018 take 1 tablet by mouth every six hours at mealtime Hydrocodone-Aceta minophen Discontinued 1 - 2 TABLET PO EVERY 6 HOURS NEEDED June 22, 2014 12:00am February 16, 2018 11:02am take with food atorvastatin 40 mg oral tablet (5 sources) HMG-CoA Reductase Inhibitor Start: 06-15-2014 End: 03-05-2022 take 40 mg by mouth once daily Atorvastatin Discontinued 40 MG PO DAILY June 15, 2014 12:00am March 05, 2022 10:54am ciprofloxacin 500 mg oral tablet (2 sources) Quinolone Antimicrobial Start: 03-05-2022 End: 04-19-2022 take 1 tablet by mouth twice daily Ciprofloxacin Hcl (Cipro) 500 mg tablet Discontinued 500 MG PO TWICE A DAY March 05, 2022 12:00am April 19, 2022 11:36am docusate sodium 50 mg / sennosides, halfway 8.6 mg oral tablet (2 sources) Start: 03-05-2022 End: 04-19-2022 take 1 tablet by mouth at bedtime Sennosides-Docusa te Sodium (Senokot-S) 8.6-50 mg tablet Discontinued 1 TAB-CAP PO AT BEDTIME March 05, 2022 12:00am April 19, 2022 11:37am hydroCHLOROthiazide 12.5 mg / valsartan 80 mg oral tablet (3 sources) Thiazide Diuretic, Angiotensin 2 Receptor Ludmila take 1 tablet by mouth once daily VALSARTAN-HYDROCH LOROTHIAZIDE 80-12.5 MG TABS take.5 tab by mouth once daily VALSARTAN-HYDROCH LOROTHIAZIDE [id number] Nilda Branch LPN hyoscyamine sulfate 0.125 mg oral tablet (2 sources) Start: 03-05-2022 End: 04-19-2022 Hyoscyamine Sulfate Discontinued 0.125 MG PO 2 to 4 times per day March 05, 2022 12:00am April 19, 2022 11:36am Lactobacillus rhamnosus GG (3 sources) CULTURELLE CAPS LACTOBACILLUS RHAMNOSUS (GG) CAPS [phone] Riddhi De La Cruz MD CULTURELLE CAPS LACTOBACILLUS RHAMNOSUS (GG) CAPS [phone] Riddhi De La Cruz MD melatonin 5 mg oral tablet (2 sources) Start: 04-19-2022 End: 05-30-2022 take 5 mg by mouth at bedtime Melatonin Discontinued 5 MG PO BEDTIME April 19, 2022 12:00am May 30, 2022 9:36am meloxicam 7.5 mg oral tablet (3 sources) Nonsteroidal Anti-inflammatory Drug Start: 01-13-2015 End: 02-12-2015 MELOXICAM 7.5 MG TABS one daily with food MELOXICAM [id number] Ekaterina Geller metFORMIN hydrochloride 500 mg oral tablet (5 sources) Biguanide Start: 02-16-2018 End: 05-30-2022 take 500 mg by mouth at bedtime Metformin Discontinued 500 MG PO AT BEDTIME February 16, 2018 12:00am May 30, 2022 9:36am On Hold: on hold while having diarrhea take 1 tablet by mouth once jeevan y METFORMIN HCL ER 500 MG [id number] One tablet by mouth daily METFORMIN HCL [id number] Nilda Branch LPN metroNIDAZOLE 500 mg oral tablet (2 sources) Nitroimidazole Antimicrobial Start: 03-05-2022 End: 04-19-2022 take 500 mg by mouth every eight hours Metronidazole Discontinued 500 MG PO Q8H March 05, 2022 12:00am April 19, 2022 11:36am MULTIPLE VITAMIN (2 sources) take 1 tablet by mouth once daily MULTIVITAMINS TABS One tablet by mouth daily MULTIPLE VITAMIN [id number] Nilda Branch LPN MULTIPLE VITAMIN (1 source) take 1 tablet by mouth once daily MULTIVITAMINS TABS One tablet by mouth daily MULTIPLE VITAMIN [id number] Nilda Branch LPN Yzwovlan-Auh-Py-Lyc open-Lutein (2 sources) Start: 06-15-2014 End: 04-19-2022 Mvtcbwwn-Qwu-Hp-Ly copen-Lutein Discontinued 1 EACH PO DAILY June 15, 2014 12:00am April 19, 2022 11:36am Multivitamin preparation (2 sources) Start: 05-24-2021 End: 05-30-2022 take 1 tablet by mouth once daily Multivitamin Discontinued 1 TABLET PO DAILY May 24, 2021 12:00am May 30, 2022 9:36am pantoprazole 40 mg delayed release oral tablet (2 sources) Proton Pump Inhibitor Start: 05-24-2021 End: 04-19-2022 take 1 tablet by mouth once daily Pantoprazole (Protonix) 40 mg tablet,delayed release (DR/EC) Discontinued 40 MG PO DAILY May 24, 2021 12:00am April 19, 2022 11:36am Sod Sulf-Pot Chloride-Mag Sulf (2 sources) Start: 04-19-2022 End: 05-30-2022 take 1.479 tablets by mouth once Sod Sulf-Pot Chloride-Mag Sulf (Sutab) 1.479-0.188- 0.225 gram tablet Discontinued 0 PO per package directions April 19, 2022 12:00am May 30, 2022 9:36am PO PER PKG DIR Problems Active Problems Problem Classification Problem Date Documented Date Episodic/Chronic Diabetes mellitus with complications (3 sources) Type 2 diabetes mellitus with hyperglycemia; Translations: [Type 2 diabetes mellitus with hyperglycemia] Onset: 05-19-2024 Chronic Diabetes mellitus without complication (3 sources) Type 2 diabetes mellitus without complications; Translations: [Type 2 diabetes mellitus without complications] Onset: 11-05-2024 Chronic Disorders of lipid metabolism (2 sources) Hyperlipidemia, unspecified; Translations: [Mixed hyperlipidemia] Onset: 05-19-2024 Chronic Diverticulosis and diverticulitis (5 sources) Diverticular disease; Translations: [Diverticulosis of intestine, part unspecified, without perforation or abscess without bleeding] Onset: 07-04-2024 Chronic Essential hypertension (2 sources) Essential (primary) hypertension; Translations: [Essential (primary) hypertension] Onset: 06-30-2024 Chronic Genitourinary symptoms and ill-defined conditions (4 sources) Nocturia; Translations: [Nocturia] Episodic Joint disorders and dislocations; trauma-related (3 sources) Chondromalacia of patella; Translations: [Chondromalacia patellae, unspecified knee] Onset: 06-02-2014 06-02-2014 Chronic Osteoarthritis (6 sources) Osteoarthritis of knee; Translations: [Osteoarthritis of hip, unspecified] Onset: 01-24-2015 01-24-2015 Chronic Other and unspecified benign neoplasm (2 sources) History of polyp of colon; Translations: [Personal history of colonic polyps] Episodic Regional enteritis and ulcerative colitis (1 source) Crohn's disease of large intestine without complications; Translations: [Crohn's disease of large intestine without complications] Onset: 07-07-2024 Chronic Residual codes; unclassified (2 sources) Family history of cancer of colon; Translations: [Family history of malignant neoplasm of digestive organs] Episodic Past or Other Problems Problem Classification Problem Date Documented Da te Episodic/Chronic Deficiency and other anemia (1 source) Anemia, unspecified; Translations: [Anemia, unspecified] Onset: 06-14-2024 Episodic Intestinal infection (3 sources) Clostridium difficile colitis; Translations: [Enterocolitis due to Clostridium difficile] Onset: 02-15-2013 02-15-2013 Episodic Joint disorders and dislocations; trauma-related (3 sources) Tear of medial meniscus of knee; Translations: [Other tear of medial meniscus, current injury, left knee] 09-14-2013 Episodic Nonspecific chest pain (1 source) Chest pain, unspecified; Translations: [Chest pain, unspecified] Onset: 06-30-2024 Episodic Other connective tissue disease (11 sources) Impingement syndrome of shoulder region; Translations: [Knee pain] Onset: 09-21-2013 09-14-2013 Episodic Other connective tissue disease (7 sources) Pes anserinus tendinitis and bursitis; Translations: [Pain in finger] Onset: 02-14-2015 02-14-2015 Episodic Other injuries and conditions due to external causes (3 sources) Contusion; Translations: [Other injury of unspecified body region] Onset: 01-24-2015 01-31-2015 Episodic Other non-traumatic joint disorders (1 source) Shoulder pain; Translations: [Pain in unspecified shoulder] Onset: 09-21-2013 10-07-2013 Episodic Other non-traumatic joint disorders (1 source) Knee pain; Translations: [Pain in left knee] 09-14-2013 Episodic Other non-traumatic joint disorders (1 source) Knee joint effusion; Translations: [Effusion, unspecified knee] Onset: 05-27-2014 05-27-2014 Episodic Residual codes; unclassified (1 source) Other amnesia; Translations: [Other amnesia] Onset: 01-12-2025 Episodic Spondylosis; intervertebral disc disorders; other back problems (6 sources) Disorder of sacrum; Translations: [Disorder of lumbar disc] 09-14-2013 Episodic Sprains and strains (3 sources) Sprain of medial collateral ligament of knee; Translations: [Sprain of medial collateral ligament of left knee] Onset: 12-15-2014 12-15-2014 Episodic Results Test Name Value Interpretation Reference Range Facility CT BRAIN W/O CONTRASTon - CT BRAIN W/O CONTRAST [place] [address] Patient: GREER CABRERA Phone#: : [phone] Age: 74 Gender: F Pt. Type: Out Account: [id number] Location: 052 Ordering: SHAD ALVAREZ Exam Date: 04/21/2025/11:16 Family Phys: CLARK FERRERA Charge Code: 808678 Physician: Lawrence Order #: [id number] Dose#: 52.30 mGy PROCEDURE: CT BRAIN WITHOUT CONTRAST COMPARISON: None. INDICATIONS: Headache. TECHNIQUE: CT images were obtained without contrast material. All CT scans at this facility use dose modulation, iterative reconstruction, and/or weight based dosing when appropriate to reduce radiation dose to as low as reasonably achievable. IV CONTRAST: No IV contrast used,0ml TOTAL DOSE: 52.30 CTDIvol(mGy) FINDINGS: CEREBRUM: No edema, hemorrhage, mass. Global atrophy. CEREBELLUM: No edema, hemorrhage, mass. Global atrophy. BRAINSTEM: No edema, hemorrhage, mass, or inappropriate atrophy. CSF SPACES: Ventricles, cisterns, and sulci are proportionate to the degree of atrophy. No hydrocephalus, subarachnoid hemorrhage, or mass. SKULL: Hyperostosis frontalis interna, benign age related finding SINUSES: Limited views demonstrate no significant mucosal thickening or fluid. ORBITS: Limited views are unremarkable. OTHER: Atherosclerotic calcifications of the intracranial arteries. CONCLUSION: 1. Global atrophy. 2. Atherosclerosis Dictated by: Melissa Ragsdale MD on 04/21/2025 at 17:34 Approved by: Melissa Ragsdale MD on 04/21/2025 at 17:38 Normal [facility] BMP with eGFRon 04-12-2025 AGE 74 years Normal [facility] Comment on above: Performed By: #### 2 [id number] #### [facility],[address] [place] [address] Anion gap [Moles/Vol] 9 mmol/L Low 10 - 20 [facility] Comment on above: Performed By: #### 2 [id number] #### [facility],[address] [place] [address] BMP with eGFR Normal [facility] Comment on above: Result Comment: BASI C METABOLIC PANEL Performed By: #### 2 [id number] #### [facility],[address] [place], [place] [id number] Calcium [Mass/Vol] 9.3 mg/dL Normal 8.5 - 10.1 [facility] Comment on above: Performed By: #### 2 [id number] #### [facility],[address] [place], [place] [id number] Chloride [Moles/Vol] 104 mmol/L Normal 98 - 107 [facility] Comment on above: Performed By: #### 2 [id number] #### [facility],[address] [place], [place] [id number] CO2 [Moles/Vol] 30.2 mmol/L Normal 21.0 - 32.0 [facility] Comment on above: Performed By: #### 2 [id number] #### [facility],[address] [place], [place] [id number] Creatinine [Mass/Vol] 0.69 mg/dL Normal 0.55 - 1.02 [facility] Comment on above: Performed By: #### 2 [id number] #### [facility],[address] [place] [address] GFR/1.73 sq M.predicted among non-blacks MDRD (S/P/Bld) [Vol rate/Area] mL/min/{1.73_m2} Normal 60 - 999 [facility] Comment on above: Performed By: #### 2 [id number] #### [facility],[address] [place], [place] [id number] Result Comment: ACCO RDING TO THE NATIONAL KIDNEY DISEASE EDUCATION PROGRAM(NKDE), A NORMAL eGFR IS A VALUE GREATER THAN OR EQUAL TO 60 ML/MIN/1.73 SQ METERS. CHRONIC KIDNEY DISEASE: <60mL/MIN/1.73 SQ METERS KIDNEY FAILURE: <15mL/MIN/1.73 SQ METERS THIS TEST SHOULD ONLY BE USED FOR PATIENTS 18 YEARS OF AGE AND OLDER. Glucose [Mass/Vol] 73 mg/dL Low 74 - 106 [facility] Comment on above: Performed By: #### 2 [id number] #### [facility],[address] [place] [address] Potassium [Moles/Vol] 3.4 mmol/L Low 3.5 - 5.1 [facility] Comment on above: Performed By: #### 2 88314 #### [facility],[address] [place] [address] Sodium [Moles/Vol] 140 mmol/L Normal 136 - 145 [facility] Comment on above: Performed By: #### 2 99551 #### [facility],[address] [place], [place] [id number] Urea nitrogen [Mass/Vol] 23 mg/dL High 7 - 18 [facility] Comment on above: Performed By: #### 2 [id number] #### [facility],[address] [place] [address] CALCIUM IONIZED [CCL]on Calcium [Moles/Vol] 1.26 mmol/L Normal 1.08-1.30 [facility] Comment on above: Performed By: #### 2 [id number] #### [facility],[address] [place] [address] Calcium, Ionized 1.28 mmol/L Normal 1.08-1.30 [facility] Comment on above: Result Comment: [facility] [address] [place] [address] Rudi Zhang III, M.D. [id number] Performed By: #### 2 62227 #### [address] [address] CBC + DIFFon 04-12-2025 Baso # 0.02 x10EE3/UL Normal 0.00 - 0.10 [facility] Comment on above: Performed By: #### 2 [id number] #### [place] [address],[place] [address] Basophils/100 WBC (Bld) 0.3 % Normal 0.0 - 2.0 [facility] Comment on above: Performed By: #### 2 [id number] #### [facility],[address] [place], [place] [id number] CBC + DIFF Normal [facility] Comment on above: Result Comment: CBC- COMPLETE BLOOD COUNT Performed By: #### 2 [id number] #### [facility],[address] [place] [address] EO # 0.19 x10EE3/UL Normal 0.00 - 0.50 [facility] Comment on above: Performed By: #### 2 [id number] #### [facility],[address] [place], [place] [id number] Eosinophils/100 WBC (Bld) 3.5 % Normal 0.0 - 7.0 [facility] Comment on above: Performed By: #### 2 [id number] #### [facility],[address] [place] [address] Erythrocyte distribution width (RBC) [Ratio] 12.7 % Normal 12.0 - 15.6 [facility] Comment on above: Performed By: #### 2 89568 #### [facility],[address] [place] [address] Hematocrit (Bld) [Volume fraction] 43.8 % Normal 34.0 - 46.0 [facility] Comment on above: Performed By: #### 2 26859 #### [facility],[address] [place] [address] Hemoglobin (Bld) [Mass/Vol] 14.9 g/dL Normal 12.0 - 16.0 [facility] Comment on above: Performed By: #### 2 [id number] #### [facility],[address] [place] [address] Lymph # 1.87 x10EE3/UL Normal 0.80 - 2.80 [facility] Comment on above: Performed By: #### 2 [id number] #### [facility],[address] [place] [address] Lymphocytes/100 WBC (Bld) 33.6 % Normal 20.0 - 45.0 [facility] Comment on above: Performed By: #### 2 62274 #### [facility],[address] [place] [address] MANUAL DIFF N/A Normal [facility] Comment on above: Performed By: #### 2 07758 #### [facility],[address] [place] [address] MCH (RBC) [Entitic mass] 33 pg Normal 27 - 33 [facility] Comment on above: Performed By: #### 2 [id number] #### [facility],[address] [place] [address] MCHC 34 X10 3 Normal 32 - 36 [facility] Comment on above: Performed By: #### 2 99618 #### [facility],[address] [place] [address] 33520 MCV (RBC) [Entitic vol] 97 fL Normal 80 - 99 [facility] Comment on above: Performed By: #### 2 42846 #### [facility],[address] [place] [address] Baldwin # 0.48 x10EE3/UL Normal 0.20 - 1.00 [facility] Comment on above: Performed By: #### 2 89138 #### [facility],[address] [place] [address] 69782 MONOS % 8.6 % Normal 0.0 - 10.0 [facility] Comment on above: Performed By: #### 2 53919 #### [facility],[address] [place] [address] 67628 Morphology Anurag (Bld) [Interp] N/A Normal [facility] Comment on above: Performed By: #### 2 43013 #### [facility],[address] [place] [address] 81366 Neut # 3.01 x10EE3/UL Normal 1.50 - 7.10 [facility] Comment on above: Performed By: #### 2 25776 #### [facility],[address] [place] [address] 31708 Neutrophils/100 WBC (Bld) 54.0 % Normal 46.0 - 76.0 [facility] Comment on above: Performed By: #### 2 80212 #### [facility],[address] [place] [address] 59588 PLATELET 236 x10EE3/UL Normal 150 - 450 [facility] Comment on above: Performed By: #### 2 64694 #### [facility],[address] [place] [address] 30516 Platelet mean volume (Bld) [Entitic vol] 8.9 fL Normal 6.6 - 10.5 [facility] Comment on above: Result Comment: AUTO MATED DIFFERENTIAL Performed By: #### 2 55488 #### [facility],[address] [place] [address] 42677 RBC 4.51 x 10EE6/UL Normal 4.10 - 5.30 [facility] Comment on above: Performed By: #### 2 81157 #### [facility],[address] [place] [address] 54711 WBC 5.6 x 10EE3/UL Normal 4.5 - 10.8 [facility] Comment on above: Performed By: #### 2 72608 #### [facility],[address] [place] [address] 77491 Calcium.ionized [Moles/Vol]o n 04-12-2025 Calcium.ionized (Bld) [Mass/Vol] 1.28 mmol/L Normal 1.08-1.30 [facility] Comment on above: Order Comment: Speci men Type: BLOOD SPECIMEN Ordering Facility: [facility] Address: [address] [place] [address] Performed By: #### 1 995-0 #### [facility] CLIA [id number] [address] [place] [address] [place] Calcium.ionized adjusted to pH 7.4 (Bld) [Moles/Vol] 1.26 mmol/L Normal 1.08-1.30 [facility] Comment on above: Order Comment: Speci men Type: BLOOD SPECIMEN Ordering Facility: [facility] Address: [address] [place] [address] Performed By: #### 1 995-0 #### [facility] CLIA [id number] [address] [place] [address] [place] TROPONIN I, HIGH SENSITIVITY on 04-12-2025 HS TROPONIN 8.5 pg/mL Normal 0.0 - 51.4 [facility] Comment on above: Performed By: #### 2 52774 #### [facility],[address] [place] [address] 3D MAMM UNILAT LT DIAGNOSTIC on 01-13-2025 3D MAMM UNILAT LT DIAGNOSTIC [place] [address] Patient: GREER CABRERA Phone#: : 1950 Age: 74 Gender: F Pt. Type: Out Account: [id number] Location: [facility] Ordering: ALISSA MAI Exam Date: 01/13/2025/9:32 Family Phys: Charge Code: [id number] Physician: Lawrence Order #: [id number] Dose#: PROCEDURE: LEFT DIAGNOSTIC BREAST TOMOSYNTHESIS MAMMOGRAM WITH CAD COMPARISON: [facility], 3D BILAT SCREEN, 01/12/2025, 8:04. [facility], 3D BILAT SCREEN, 01/13/2024, 13:23. INDICATIONS: Abnormal mammogram. BREAST COMPOSITION: Scattered areas fibroglandular density. FINDINGS: DIAGNOSTIC CATEGORY 1--NEGATIVE: LEFT BREAST: No significant suspicious finding. RECOMMENDATIONS: ROUTINE MAMMOGRAM AND CLINICAL EVALUATION IN 12 MONTHS. PLEASE NOTE: A NORMAL MAMMOGRAM DOES NOT EXCLUDE THE POSSIBILITY OF BREAST CANCER. A CLINICALLY SUSPICIOUS PALPABLE LUMP SHOULD BE BIOPSIED. THIS FACILITY UTILIZES A REMINDER SYSTEM TO ENSURE THAT ALL PATIENTS RECEIVE REMINDER LETTERS FOR APPOINTMENTS. THIS INCLUDES REMINDERS FOR ROUTINE MAMMOGRAMS, DIAGNOSITC MAMMOGRAMS, OR OTHER BREAST IMAGING INTERVENTIONS WHEN APPROPRIATE. THIS PATIENT WILL BE PLACED IN THE APPROPRIATE REMINDER SYSTEM. Dictated by: Isabel Abbasi MD on 01/13/2025 at 12:27 Approved by: Isabel Abbasi MD on 01/13/2025 at 12:28 Normal [facility] 3D MAMM BILAT SCREENon 01-12 3D MAMM BILAT SCREEN [place] [address] Patient: GREER CABRERA Phone#: : 1950 Age: 74 Gender: F Pt. Type: Out Account: [id number] Location: [facility] Ordering: ALISSA MAI Exam Date: 01/12/2025/8:04 Family Phys: Charge Code: [id number] Physician: Lawrence Order #: [id number] Dose#: PROCEDURE: BILATERAL SCREENING BREAST TOMOSYNTHESIS MAMMOGRAM WITH CAD COMPARISON: [facility], 3D BILAT SCREEN, 07/15/2022, 9:11. [facility], 3D BILAT SCREEN, 01/13/2024, 13:23. INDICATIONS: Screening. BREAST COMPOSITION: Scattered areas fibroglandular density. FINDINGS: DIAGNOSTIC CATEGORY 0--INCOMPLETE: NEED ADDITIONAL IMAGING EVALUATION. RIGHT BREAST: No significant suspicious finding. LEFT BREAST: FOCAL ASYMMETRY (finding without convex borders usually visible on two orthogonal views), characterized by obscured indeterminate morphology, mid-breast depth, 2 o'clock position, and 58a2a25 mm size. RECOMMENDATIONS: ADDITIONAL MAMMOGRAPHIC VIEWS REQUIRED: LEFT BREAST --We will call the patient back for additional views and issue an additional report. PLEASE NOTE: A NORMAL MAMMOGRAM DOES NOT EXCLUDE THE POSSIBILITY OF BREAST CANCER. A CLINICALLY SUSPICIOUS PALPABLE LUMP SHOULD BE BIOPSIED. THIS FACILITY UTILIZES A REMINDER SYSTEM TO ENSURE THAT ALL PATIENTS RECEIVE REMINDER LETTERS FOR APPOINTMENTS. THIS INCLUDES REMINDERS FOR ROUTINE MAMMOGRAMS, DIAGNOSITC MAMMOGRAMS, OR OTHER BREAST IMAGING INTERVENTIONS WHEN APPROPRIATE. THIS PATIENT WILL BE PLACED IN THE APPROPRIATE REMINDER SYSTEM. Dictated by: Melissa Ragsdale MD on 01/12/2025 at 9:19 Approved by: Melissa Ragsdale MD on 01/12/2025 at 9:35 Normal [facility] Gastroenterology Visit Repor ton 12-14-2024 Gastroenterology Visit Report [facility] Gastroenterology [address] [place] [address] OFFICE VISIT Date of Service: 12/14/24 MR#: [id number] Acct: [id number] Name: GREER CABRERA ANJALI Rep #: [id number] : 1950 Provider: LUIS Acosta Age/Sex: 74/F Location: [facility] Status: Signed Intake Vital Signs 06/03/24 12:03 Height 5 ft 4 in Intake Visit Reasons: 6 M FU Chief Complaint: f/u Allergies neomycin Adverse Reaction (Verified 06/03/24 11:55) Itching Medications ???Medication ???Instructions ???Recorded ???Confirmed ???Type Lactobacillus acidophilus 250 1,000 mmu cells PO DAILY 06/12/22 12/14/24 History million cell capsule (Probiotic Acidophilus) aspirin 81 mg tablet,delayed 81 mg PO DAILY 06/12/22 12/14/24 H istory release losartan 50 mg tablet 50 mg PO DAILY 06/12/22 12/14/24 H istory multivitamin with minerals-folic 1 tab PO DAILY 06/12/22 12/14/24 H istory acid 200 mcg chewable tablet (Multivitamin Gummies) pioglitazone 30 mg tablet (Actos) 30 mg PO DAILY 06/12/22 06/14/24 History rosuvastatin 40 mg tablet (Crestor) 40 mg PO QHS 06/12/22 12/14/24 History pantoprazole 40 mg tablet,delayed 40 mg PO QAM #180 tabs 08/12/22 0 12/14/24 Rx release empagliflozin 25 mg tablet 25 mg PO DAILY 05/26/24 12/14/24 H istory (Jardiance) glipizide 10 mg tablet, extended 10 mg PO BID 05/26/24 12/14/24 His tory release 24 hr mesalamine 1.2 gram tablet,delayed 2.4 g (2 x 1.2 gram) PO QDAY 8 1 12/14/24 Rx release weeks #112 tabs Patient : No Have you fallen in the past year?: Yes Nurse's Note: OV 12.14.24 Pt here for f/u. Pt reports she is feeling well with no GI complaints. Denies n/v/c/d bloody stools and abdominal pain. She continues taking mesalamine and pantoprazole daily. She states she has questions about mesalamine for the provider. [facility] Medical History Diverticulitis of sigmoid colon Chest pain Insomnia Schatzki's ring Diverticular disease Nocturia more than twice per night Rosenthal's esophagus Segmental colitis associated with diverticulosis History of hiatal hernia History of diverticulitis Gastric reflux Cancer Arthritis Dysphagia Rosacea Bulging lumbar disc Constipation Lower abdominal pain Diabetes type 2, controlled Hyperlipidemia Hypertension Surgical History H/O wrist surgery Hx of colonoscopy History of esophagogastroduodenoscop y (EGD) Hx of eye surgery squamous cell removed Status post left knee replacement S/P cholecystectomy melanoma removed S/P total hysterectomy S/P arthroscopy of right shoulder S/P left knee arthroscopy Family History Grandfather Diabetes Father Colon cancer Mother Cervical cancer Lung cancer Brother COPD (chronic obstructive pulmonary disease) Social History (Updated 06/03/24 @ 12:02 by Flaquita Wallace) pets and animals: Yes leisure activities: exercise Smoking Status: Never smoker alcohol intake: never substance use type: does not use caffeine: No what type of physical activity do you participate in: walking and bicycling frequency: 5-6 times per week seatbelt use: always do you feel safe at home: Yes 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 BGI established in 2021 for recurrent diverticulitis. Biochemical 7.15.22 CBC, ESR, CMP, LDH, CRP, SIMI comp, ANCA, celiac, BORA, GAME without pertinent abnormality Stool lactoferrin WNL. Calprotectin H186 EGD and colonoscopy 06.17.22 EGD [place] Grade A esophagitis, metaplasia +; moderate Schatzki ring, Savary 54F; small hiatal hernia; gastritis; duodenitis. H.pylori neg Colonoscopy 5mm hyperplastic polyp; diverticulosis; congested mucosa Ov 2021; Start Mesalamine for SCAD. PPI for Barretts EGD 06.24.23 Rosenthal???s changes; small hiatal hernia. Metaplasia neg *05.25.24 w/ diverticulitis flare. Presented to ED on 05.26with increased rectal bleeding. Admitted and underwent Colonoscopy showing ischemic colitis. Colonoscopy 05.27.24; - Diverticulosis in the recto-sigmoid colon, in the sigmoid colon and in the descending colon. - Localized moderate inflammation was found in the recto-sigmoid colon and in the sigmoid colon secondary to ischemic colitis. Biopsied. - The examination was otherwise normal on direct and retroflexion views. Last OV 06.14.24 with recent visit to the ED for rectal bleeding and discomfort. Started on IV antibiotics for diverticulitis. Start Mesalamine per Dr. Espinoza recommendation. Start fiber and probiotic OV 3 Pt (more content not included)... Normal [facility] BMP with eGFRon 10-12-2024 AGE 74 years Normal [facility] Comment on above: Performed By: #### 2 68123 #### [facility],[address] [place] [address] 77682 Anion gap [Moles/Vol] 11 mmol/L Normal 10 - 20 [facility] Comment on above: Performed By: #### 2 43407 #### [facility],[address] [place] [address] 07789 BMP with eGFR Normal [facility] Comment on above: Result Comment: BASI C METABOLIC PANEL Performed By: #### 2 60962 #### [facility],[address] [place] [address] 34595 Calcium [Mass/Vol] 9.4 mg/dL Normal 8.5 - 10.1 [facility] Comment on above: Performed By: #### 2 44815 #### [facility],[address] [place] [address] 10705 Chloride [Moles/Vol] 104 mmol/L Normal 98 - 107 [facility] Comment on above: Performed By: #### 2 30713 #### [facility],[address] [place], [place] [id number] CO2 [Moles/Vol] 28.8 mmol/L Normal 21.0 - 32.0 [facility] Comment on above: Performed By: #### 2 07536 #### [facility],[address] [place], [place] [id number] Creatinine [Mass/Vol] 0.74 mg/dL Normal 0.55 - 1.02 [facility] Comment on above: Performed By: #### 2 25555 #### [facility],[address] [place], [place] [id number] GFR/1.73 sq M.predicted among non-blacks MDRD (S/P/Bld) [Vol rate/Area] mL/min/{1.73_m2} Normal 60 - 999 [facility] Comment on above: Performed By: #### 2 55835 #### [facility],[address] [place], [place] [id number] Result Comment: ACCO RDING TO THE NATIONAL KIDNEY DISEASE EDUCATION PROGRAM(NKDE), A NORMAL eGFR IS A VALUE GREATER THAN OR EQUAL TO 60 ML/MIN/1.73 SQ METERS. CHRONIC KIDNEY DISEASE: <60mL/MIN/1.73 SQ METERS KIDNEY FAILURE: <15mL/MIN/1.73 SQ METERS THIS TEST SHOULD ONLY BE USED FOR PATIENTS 18 YEARS OF AGE AND OLDER. Glucose [Mass/Vol] 125 mg/dL High 74 - 106 [facility] Comment on above: Performed By: #### 2 54886 #### [facility],[address] [place], [place] [id number] Potassium [Moles/Vol] 3.8 mmol/L Normal 3.5 - 5.1 [facility] Comment on above: Performed By: #### 2 61265 #### [facility],[address] [place] [address] Sodium [Moles/Vol] 140 mmol/L Normal 136 - 145 [facility] Comment on above: Performed By: #### 2 32675 #### [facility],[address] [place] [address] Urea nitrogen [Mass/Vol] 20 mg/dL High 7 - 18 [facility] Comment on above: Performed By: #### 2 79206 #### [facility],[address] [place], [place] [address] HEMOGLOBIN A1C (POM)on 10-12 Glucose [Mass/Vol] 139.9 mg/dL High 0.0 - 0.0 [facility] Comment on above: Result Comment: BLDo HEMOGLOBIN A1C REFERENCE RANGESBLDo Suggested Diagnosis HbA1c(%) HbA1C (mmol/mol Diabetic >/=6.5 >/=48 Prediabetes 5.7 - 6.4 39 - 47 Normal <5.7 <39 Performed By: #### 2 22691 #### [facility],[address] [place] [address] HbA1c (Bld) [Mass fraction] 6.5 % Normal 0.0 - 6.5 [facility] Comment on above: Performed By: #### 2 71278 #### [facility],[address] [place], [place] [id number] SGOT (AST)on 10-12-2024 AST [Catalytic activity/Vol] 20 U/L Normal 13 - 39 [facility] Comment on above: Performed By: #### 2 57771 #### [facility],[address] [place] [address] 03895 SGPT (ALT)on 10-12-2024 ALT [Catalytic activity/Vol] 16 U/L Normal 16 - 63 [facility] Comment on above: Performed By: #### 2 46024 #### [facility],[address] [facility] [address] Calprotectin, Stoolon [address] 48 ug/g Normal 0-120 [facility] Comment on above: Result Comment: Conc entration Interpretation Follow-Up < 5 - 50 ug/g Normal None >50 -120 ug/g Borderline Re-evaluate in 4-6 weeks >120 ug/g Abnormal Repeat as clinically indicated Performed at: [facility] [id number] [employer]: Anna Dominguez MD, Phone: [phone] Performed By: #### L 7000.0700, L7000.0750, M100.0605 #### [facility] [address] [place], [place], [id number] L7000.0750on 06-21-2024 P ELASTASE,FECA 789 Normal >200 [facility] Comment on above: Result Comment: Resu lt Units: ug Elast./g Severe Pancreatic Insufficiency: <100 Moderate Pancreatic Insufficiency: 100 - 200 Normal: >200 Performed at: [facility] [id number] [employer]: Anna Dominguez MD, Phone: [phone] Performed By: #### L 7000.0700, L7000.0750, M100.0605 #### [facility] [address] [place], [place], [id number] Stool Lactoferrin/WBCon 06-06 WBCST Normal Reference Ran ge = Negative Fecal WBC Lactoferrin Negative: No Fecal WBC Lactoferrin present Normal [facility] Comment on above: Performed By: #### L 7000.0700, L7000.0750, M100.0605 #### [facility] [address] [place], [place], [address] CBC W/Diff, Automatedon 09-0 Absolute Lymph 1.73 X10 3/uL Normal 0.83-4.51 [facility] Comment on above: Performed By: #### L 100.0100, L503.6150, L503.0105, L503.6075, L506.0250 #### [facility] [address] [place], [address] Absolute Neut 3.7 X10 3/uL Normal 2.0-7.7 [facility] Comment on above: Performed By: #### L 100.0100, L503.6150, L503.0105, L503.6075, L506.0250 #### [facility] [address] [place], [address] Basophils/100 WBC (Bld) 0.8 % Normal 0-1 [facility] Comment on above: Performed By: #### L 100.0100, L503.6150, L503.0105, L503.6075, L506.0250 #### [facility] [address] [place], [address] Eosinophils/100 WBC (Bld) 2.0 % Normal 0-5 [facility] Comment on above: Performed By: #### L 100.0100, L503.6150, L503.0105, L503.6075, L506.0250 #### [facility] [address] [place], [address] Erythrocyte distribution width (RBC) [Ratio] 12.6 % Normal 11.6-14.6 [facility] Comment on above: Performed By: #### L 100.0100, L503.6150, L503.0105, L503.6075, L506.0250 #### [facility] [address] [place], [address] Hematocrit (Bld) [Volume fraction] 42.2 % Normal 37-47 [facility] Comment on above: Performed By: #### L 100.0100, L503.6150, L503.0105, L503.6075, L506.0250 #### [facility] [address] [place], [address] Hemoglobin (Bld) [Mass/Vol] 13.7 g/dL Normal 12.0-15.0 [facility] Comment on above: Performed By: #### L 100.0100, L503.6150, L503.0105, L503.6075, L506.0250 #### [facility] [address] [place], [address] IG% 0.300 Normal 0.0-0.9 [facility] Comment on above: Result Comment: IG% - Immature Granulocytes (promyelocytes, myelocytes and metamyelocytes) > 1% indicates that a LEFT SHIFT is Present. Performed By: #### L 100.0100, L503.6150, L503.0105, L503.6075, L506.0250 #### [facility] [address] [place], [address] Lymphocytes/100 WBC (Bld) 28.7 % Normal 19-41 [facility] Comment on above: Performed By: #### L 100.0100, L503.6150, L503.0105, L503.6075, L506.0250 #### [facility] [address] [place], [address] MCH (RBC) [Entitic mass] 32.2 pg High 27.0-32.0 [facility] Comment on above: Performed By: #### L 100.0100, L503.6150, L503.0105, L503.6075, L506.0250 #### [facility] [address] [place], [address] MCHC (RBC) [Mass/Vol] 32.5 g/dL Normal 32-36 [facility] Comment on above: Performed By: #### L 100.0100, L503.6150, L503.0105, L503.6075, L506.0250 #### [facility] [address] [place], [address] MCV (RBC) [Entitic vol] 99.3 fL High 81-99 [facility] Comment on above: Performed By: #### L 100.0100, L503.6150, L503.0105, L503.6075, L506.0250 #### [facility] [address] [place], [address] Monocytes/100 WBC (Bld) 7.5 % Normal 0-10 [facility] Comment on above: Performed By: #### L 100.0100, L503.6150, L503.0105, L503.6075, L506.0250 #### [facility] [address] [place], [address] Neutrophils/100 WBC (Bld) 60.7 % Normal 47-70 [facility] Comment on above: Performed By: #### L 100.0100, L503.6150, L503.0105, L503.6075, L506.0250 #### [facility] [address] [place], [address] Nucleated RBC (Bld) [#/Vol] 0 10*3/uL Normal 0-5 [facility] Comment on above: Performed By: #### L 100.0100, L503.6150, L503.0105, L503.6075, L506.0250 #### [facility] [address] [place], [address] Platelet mean volume (Bld) [Entitic vol] 12.0 fL Normal 6.2-12.0 [facility] Comment on above: Performed By: #### L 100.0100, L503.6150, L503.0105, L503.6075, L506.0250 #### [facility] [address] [place], [address] Platelets (Bld) [#/Vol] 208 10*3/uL Normal 150-450 [facility] Comment on above: Performed By: #### L 100.0100, L503.6150, L503.0105, L503.6075, L506.0250 #### [facility] [address] [place], [address] RBC (Bld) [#/Vol] 4.25 10*6/uL Normal 4.2-5.4 [facility] Comment on above: Performed By: #### L 100.0100, L503.6150, L503.0105, L503.6075, L506.0250 #### [facility] [address] [place], [address] RDW SD 46.4 fl High 35.1-43.9 [facility] Comment on above: Performed By: #### L 100.0100, L503.6150, L503.0105, L503.6075, L506.0250 #### [facility] [address] [place], [address] WBC (Bld) [#/Vol] 6.0 10*3/uL Normal 4.4-11.0 [facility] Comment on above: Performed By: #### L 100.0100, L503.6150, L503.0105, L503.6075, L506.0250 #### [facility] [address] [place], [address] Folates, (Folic Acid)on FOLATES 43.60 ng/mL Normal 3.1-55.4 [facility] Comment on above: Order Comment: N Performed By: #### L 100.0100, L503.6150, L503.0105, L503.6075, L506.0250 ####[facility] [address] [place], [address] Gastroenterology Visit Repor ton 06-14-2024 Gastroenterology Visit Report [facility]enter[facility] [address] [place] [address] OFFICE VISIT Date of Service: 06/14/24 MR#: [id number] Acct: [id number] Name: GREER CABRERA Rep #: [id number] : 1950 Provider: LUIS Acosta Age/Sex: 74/F Location: [facility] Status: Signed Intake Vital Signs 05/27/24 11:55 06/03/24 12:03 Height 5 ft 4 in 5 ft 4 in Intake Visit Reasons: Hospital FU Chief Complaint: diverticulitis /u Allergies neomycin Adverse Reaction (Verified 06/03/24 11:55) Itching Medications ???Medication ???Instructions ???Recorded ???Confirmed ???Type Lactobacillus acidophilus 250 1,000 mmu cells PO DAILY 06/12/22 06/14/24 History million cell capsule (Probiotic Acidophilus) aspirin 81 mg tablet,delayed 81 mg PO DAILY 06/12/22 06/14/24 History release losartan 50 mg tablet 50 mg PO DAILY 06/12/22 06/14/24 History multivitamin with minerals-folic 1 tab PO DAILY 06/12/22 06/14/24 History acid 200 mcg chewable tablet (Multivitamin Gummies) pioglitazone 30 mg tablet (Actos) 30 mg PO DAILY 06/12/22 06/14/24 History rosuvastatin 40 mg tablet (Crestor) 40 mg PO QHS 06/12/22 06/14/24 History pantoprazole 40 mg tablet,delayed 40 mg PO QAM #180 tabs 08/12/22 06/14/24 Rx release empagliflozin 25 mg tablet 25 mg PO DAILY 05/26/24 06/14/24 History (Jardiance) glipizide 10 mg tablet, extended 10 mg PO BID 05/26/24 06/14/24 History release 24 hr mesalamine 1.2 gram tablet,delayed 2.4 g (2 x 1.2 gram) PO QDAY 8 06/14/24 06/14/24 Rx release weeks #112 tabs Have you fallen in the past year?: No Nurse's Note: OV 9.9.24 pt reports that she is feeling much better since last visit. Is finished with her course of Cipro, Flagyl, and Dicyclomine. Pt reports that she continues to have 2-3 soft bm per day; states that stool is firming up; denies blood in the stool. Pt reports increased fatigue. [facility] Medical History Diverticulitis of sigmoid colon Chest pain Insomnia Schatzki's ring Diverticular disease Nocturia more than twice per night Rosenthal's esophagus Segmental colitis associated with diverticulosis History of hiatal hernia History of diverticulitis Gastric reflux Cancer Arthritis Dysphagia Rosacea Bulging lumbar disc Constipation Lower abdominal pain Diabetes type 2, controlled Hyperlipidemia Hypertension Surgical History H/O wrist surgery Hx of colonoscopy History of esophagogastroduodenoscop y (EGD) Hx of eye surgery squamous cell removed Status post left knee replacement S/P cholecystectomy melanoma removed S/P total hysterectomy S/P arthroscopy of right shoulder S/P left knee arthroscopy Family History Grandfather Diabetes Father Colon cancer Mother Cervical cancer Lung cancer Brother COPD (chronic obstructive pulmonary disease) Social History (Updated 06/03/24 @ 12:02 by Flaquita Wallace) pets and animals: Yes leisure activities: exercise Smoking Status: Never smoker alcohol intake: never substance use type: does not use caffeine: No what type of physical activity do you participate in: walking and bicycling frequency: 5-6 times per week seatbelt use: always do you feel safe at home: Yes 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 *BGI established 04.19.22 with recurrent diverticulitis with need for hospitalization previously; surgery never indicated ? Biochemical 04.19.22 CBC, ESR, CMP, LDH, CRP, SIMI comp, ANCA, celiac, BORA, GAME without pertinent abnormality ? Stool lactoferrin WNL.? Calprotectin H186 ? EGD and colonoscopy 06.17.22 EGD LA Grade A esophagitis, metaplasia +; moderate Schatzki ring, Savary 54F; small hiatal hernia; gastritis; duodenitis. H.pylori neg ? Colonoscopy 5mm hyperplastic polyp; diverticulosis; congested mucosa OV 10.. Likely has SCAD, start mesalamine. Rosenthal???s esophagus start PPI. OV .04.26 Mesalamine ended and is doing well at this time. Continue probiotic for recurrent C.Difficile. ? EGD 06.24.23 Rosenthal???s changes; small hiatal hernia. Metaplasia neg OV .11.28 reports a dry throat since EGD that has improved in the last couple of days. BM occur several times a day but with small amount and harder stools, MiraLAX taken for several days with improvement. OV 05.25.24 Patient repor (more content not included)... Normal [facility] Ironon 06-14-2024 Iron [Mass/Vol] 164 ug/dL Normal 50-170 [facility] Comment on above: Order Comment: N Performed By: #### L 100.0100, L503.6150, L503.0105, L503.6075, L506.0250 ####[facility] [address] [place], [address] Iron Binding Capacity,Totalo n 06-14-2024 TIBC 248 ug/dL Low 250-450 [facility] Comment on above: Order Comment: N Performed By: #### L 100.0100, L503.6150, L503.0105, L503.6075, L506.0250 ####[facility] [address] [place], [address] Vitamin B12on 06-14-2024 Cobalamin (Vitamin B12) [Mass/Vol] 590 pg/mL Normal 211-911 [facility] Comment on above: Performed By: #### L 100.0100, L503.6150, L503.0105, L503.6075, L506.0250 ####[facility] [address] [place], [address] Echo Completeon 06-10-2024 Echo Complete [facility] [address] [place] [address] Echo Complete 06/10/24 1002 MR#: [id number] Acct: [id number] Name: GREER CABRERA ANJALI Rep #: [id number] : 1950 74 From: Virgilio Ballard MD Attending Dr: Dr. Virgilio Ballard MD Status: BOBO DOAN Ordering Dr: Virgilio Ballard MD Date: 06/10/24 Location: [facility] Sex: F C Admitted: Reason For Study: Chest Pain Procedure This was a 2D Doppler, Color Flow transthoracic echocardiogram. Exam performed in department. Left Ventricle Normal LV size. Left ventricular systolic function is normal. The left ventricular ejection fraction is 60 %. Stage 1 diastolic dysfunction. No regional wall motion abnormalities noted. Right Ventricle Normal RV size. Normal systolic function. Atria Normal left atrium. Normal right atrium. Mitral Valve Normal mitral valve. Tricuspid Valve Normal tricuspid valve. Aortic Valve Trisinus/trileaflet aortic valve. Pulmonic Valve Normal pulmonic valve. Great Vessels Normal aortic root. The pulmonary artery is normal size. Normal inferior vena cava. Pericardium/Pleural No pericardial effusion. MMode/2D Measurements Calculations LVIDd: 4.4 cm IVSd: 1.1 cm Ao root diam: 3.2 cm LVIDs: 2.4 cm LVPWd: 1.3 cm LA dimension: 3.7 cm RVDd: 3.8 cm FS: 44.6 % LAV(MOD-bp): 51.1 ml LVAd ap4: 28.7 cm2 SV(MOD-sp4): 50.7 ml LAV(MOD-bp) Indexed: 27.4 ml/m2 LVLd ap4: 7.9 cm LAV(MOD-sp2): 49.0 ml EDV(MOD-sp4): 87.7 ml LAV(MOD-sp4): 52.5 ml EDV(sp4-el): 88.8 ml LVAs ap4: 16.7 cm2 LVLs ap4: 6.4 cm ESV(MOD-sp4): 36.9 ml ESV(sp4-el): 37.0 ml EF(MOD-sp4): 57.8 % EF(sp4-el): 58.3 % SV(sp4-el): 51.8 ml LA A4 area: 18.5 cm2 RA A4 area: 17.5 cm2 TAPSE: 2.1 cm Time Measurements MV dec time: 0.21 sec Doppler Measurements Calculations MV E max juan: 71.3 cm/sec Lat Peak E' Juan: 7.4 cm/sec Med Peak E' Juan: 8.9 cm/sec MV A max juan: 79.5 cm/sec E/E' lat: 9.6 E/E' med: 8.0 MV E/A: 0.90 MV V2 max: 95.5 cm/sec MV P1/2t max juan: 86.6 cm/sec Ao V2 max: 115.9 cm/sec MV max P.6 mmHg MV P1/2t: 79.5 msec Ao max P.4 mmHg MV V2 mean: 51.1 cm/sec MV dec slope: 319.2 cm/sec2 Ao V2 mean: 77.4 cm/sec MV mean P.2 mmHg Ao mean P.8 mmHg MV V2 VTI: 33.8 cm MVA(P1/2t): 2.8 cm2 Ao V2 VTI: 30.6 cm AV (velocity ratio): 0.80 LV V1 max: 87.3 cm/sec PA V2 max: 115.8 cm/sec LV V1 max P.1 mmHg PA max PG (full): 3.0 mmHg LV V1 mean P.6 mmHg LV V1 mean: 58.6 cm/sec LV V1 VTI: 24.5 cm ECHO/Echo Complete Interpretation Summary Normal LV size. Left ventricular systolic function is normal. The left ventricular ejection fraction is 60 %. Stage 1 diastolic dysfunction. ___ Ordering Physician: Virgilio Ballard Referring Physician: Virgilio Ballard Performed By: Agustín Lou RCS 06/10/249 Date Virgilio Ballard MD CC: Dr. Alissa Mai MD; Dr. Virgilio Ballard MD Date Dictated: 06/10/24 1002 Date Transcribed: 06/10/241648 [employer]: Signed Normal [facility] Stress Reporton 06-10-2024 Stress Report [facility] Cardiovascular Services [address] [place] [address] MR#: [id number] Acct: [id number] Name: GREER CABRERA ANJALI Rep #: [id number] : 1950 74 From: Virgilio Ballard MD Primary Care: Dr. Alissa Mai MD Status: REG CLI Referring Dr: Virgilio Ballard MD Sex: F C Stress Test Report Exercise myocardial perfusion stress test. 74-year-old lady with a history of chest pain Stress protocol: Resting EKG demonstrates normal sinus rhythm with a rate of 58 bpm resting blood pressure is 132/70 mmHg. The patient exercised according to the regular Juan protocol for a total duration of 6 minutes attaining a maximum heart rate of 127 bpm which was 86 beats of maximum predicted heart rate; the maximum workload was 7 metabolic equivalents. At rest there were no ST or T wave changes noted to suggest ischemia and at peak exercise upsloping ST changes only were noted which did not meet the criteria for ischemia. No clinical angina was noted the test was terminated due to the target heart rate being achieved/fatigue. The peak blood pressure was 174/70 mmHg. Rate-pressure product was 22,000. Myocardial perfusion protocol. 11.2 mCi of technetium 99m sestamibi was injected at rest. The patient exercised according to regular Juan protocol for total duration of 6 minutes and at peak exercise 35 mCi of technetium 99m sestamibi was injected stress images were obtained stress and rest images were reconstructed in comparing the short axis vertical long and horizontal long axis. Gated images were also obtained. Perfusion SPECT analysis: Review of the stress images demonstrate normal uptake of tracer noted in all areas of the myocardium. The resting images similarly demonstrate normal uptake of tracer noted in all areas of the myocardium. No areas of reversibility are noted to suggest ischemia no previous infarct was noted. Gated SPECT analysis: The gated ejection fraction is normal. Conclusion: Normal exercise myocardial perfusion stress test at a moderate workload Preserved ejection fraction. 06/10/241551 Date Virgilio Ballard MD CC: Dr. Alissa Mai MD; Dr. 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 Espinoza) Allergies neomycin Adverse Reaction (Verified 06/03/24 11:55) Itching Medications ???Medication ???Instructions ???Recorded ???Confirmed ???Type Lactobacillus acidophilus 250 1,000 mmu cells PO DAILY 06/12/22 06/03/24 History million cell capsule (Probiotic Acidophilus) aspirin 81 mg tablet,delayed 81 mg PO DAILY 06/12/22 06/03/24 History release losartan 50 mg tablet 50 mg PO DAILY 06/12/22 06/03/24 History multivitamin with minerals-folic 1 tab PO DAILY 06/12/22 06/03/24 History acid 200 mcg chewable tablet (Multivitamin Gummies) pioglitazone 30 mg tablet (Actos) 30 mg PO DAILY 06/12/22 06/03/24 History rosuvastatin 40 mg tablet (Crestor) 40 mg PO QHS 06/12/22 06/03/24 History pantoprazole 40 mg tablet,delayed 40 mg PO QAM #180 tabs 08/12/22 06/03/24 Rx release dicyclomine 10 mg capsule 10 mg PO BID #30 caps 05/25/24 06/03/24 Rx empagliflozin 25 mg tablet 25 mg PO DAILY 05/26/24 06/03/24 History (Jardiance) glipizide 10 mg tablet, extended 10 mg PO BID 05/26/24 06/03/24 History release 24 hr ciprofloxacin HCl 500 mg tablet 500 mg PO Q12H #14 tabs 05/28/24 06/03/24 Rx metronidazole 500 mg tablet 500 mg PO Q8H #21 tabs 05/28/24 06/03/24 Rx Is last menstrual period known: No Post menopausal: Yes Patient : No : No PFSH Medical History Diverticulitis of sigmoid colon Chest pain Insomnia Schatzki's ring Diverticular disease Nocturia more than twice per night Rosenthal's esophagus Segmental colitis associated with diverticulosis History of hiatal hernia History of diverticulitis Gastric reflux Cancer Arthritis Dysphagia Rosacea Bulging lumbar disc Constipation Lower abdominal pain Diabetes type 2, controlled Hyperlipidemia Hypertension Surgical History H/O wrist surgery Hx of colonoscopy History of esophagogastroduodenoscop y (EGD) Hx of eye surgery squamous cell removed Status post left knee replacement S/P cholecystectomy melanoma removed S/P total hysterectomy S/P arthroscopy of right shoulder S/P left knee arthroscopy Family History Grandfather Diabetes Father Colon cancer Mother Cervical cancer Lung cancer Brother COPD (chronic obstructive pulmonary disease) Social History (Updated 06/03/24 @ 12:02 by Flaquita Wallace) pets and animals: Yes leisure activities: exercise Smoking Status: Never smoker alcohol intake: never substance use type: does not use caffeine: No what type of physical activity do you participate in: walking and bicycling frequency: 5-6 times per week seatbelt use: always do you feel safe at home: Yes 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 Last PAP: nl in past History of abnormal PAP: no severe Last mammogram: current - done at [facility] History of abnormal mammogram: can't recall any abnormal Colon cancer screenin week ago at [facility] Other preventative health care screenings: Dr. Mai - orders screening labs. Labs just done while in hospital. ROS Const Constitutional: Reports as per HPI; Denies fatigue, increased appetite, poor appetite, weight gain or weight loss Cardio Card: Denies chest pain Resp Resp: Denies cough or dyspnea GI GI: Reports as per HPI, abdominal pain, bloating and constipation; Denies nausea or vomiting : Reports as per HPI and other; Denies difficulty voiding, dysuria, hematuria, nipple discharge, pelvic pain, prolapse symptoms, urinary frequency, urinary incontinence, urinary urgency, vaginal discharge, vaginal dryness, vaginal odor or vaginal prur (more content not included)... Normal [facility] Basic Metabolic Profile (BMP )on 05-31-2024 BUN Normal 7-18 [facility] Comment on above: Result Comment: Canc elled via OM: Order cancelled - Patient discharged Performed By: #### L 500.2500 ####[facility] [address] [place], [address] BUN/CRE Normal 10-20 [facility] Comment on above: Result Comment: Canc elled via OM: Order cancelled - Patient discharged Performed By: #### L 500.2500 ####[facility] [address] [place], [address] CA,Total Normal 8.5-10.1 [facility] Comment on above: Result Comment: Canc elled via OM: Order cancelled - Patient discharged Performed By: #### L 500.2500 ####[facility] [address] [place], [address] CL Normal 98-107 [facility] Comment on above: Result Comment: Canc elled via OM: Order cancelled - Patient discharged Performed By: #### L 500.2500 ####[facility] [address] [facility] [address] CO2 Normal 21.0-32.0 [facility] Comment on above: Result Comment: Canc elled via OM: Order cancelled - Patient discharged Performed By: #### L 500.2500 ####[facility] [address] [place], [address] CREAT,SERUM Normal 0.55-1.02 [facility] Comment on above: Result Comment: Canc elled via OM: Order cancelled - Patient discharged Performed By: #### L 500.2500 ####[facility] [address] [place], [address] EST GFR Normal >60 [facility] Comment on above: Result Comment: Canc elled via OM: Order cancelled - Patient discharged Performed By: #### L 500.2500 ####[facility] [address] [place], [address] EST GFR - AA Normal >60 [facility] Comment on above: Result Comment: Canc elled via OM: Order cancelled - Patient discharged Performed By: #### L 500.2500 ####[facility] [address] [place], [address] GAP Normal 5-15 [facility] Comment on above: Result Comment: Canc elled via OM: Order cancelled - Patient discharged Performed By: #### L 500.2500 ####[facility] [address] [place], [address] GLU Normal 74-106 [facility] Comment on above: Result Comment: Canc elled via OM: Order cancelled - Patient discharged Performed By: #### L 500.2500 ####[facility] [address] [place], [address] Potassium Normal 3.5-5.1 [facility] Comment on above: Result Comment: Canc elled via OM: Order cancelled - Patient discharged Performed By: #### L 500.2500 ####[facility] [address] [place], [address] Basic Metabolic Profile (BMP) Normal 136-145 [facility] Comment on above: Result Comment: Canc elled via OM: Order cancelled - Patient discharged Performed By: #### L 500.2500 ####[facility] [address] [place], [address] CBC W/Diff, Automatedon 08-2 Absolute Neut Normal 2.0-7.7 [facility] Comment on above: Result Comment: Canc elled via OM: Order cancelled - Patient discharged Performed By: #### L 100.0100 #### [facility] [address] [place], [address] HCT Normal 37-47 [facility] Comment on above: Result Comment: Canc elled via OM: Order cancelled - Patient discharged Performed By: #### L 100.0100 #### [facility] [address] [place], [address] HGB Normal 12.0-15.0 [facility] Comment on above: Result Comment: Canc elled via OM: Order cancelled - Patient discharged Performed By: #### L 100.0100 #### [facility] [address] [place], [address] MCH Normal 27.0-32.0 [facility] Comment on above: Result Comment: Canc elled via OM: Order cancelled - Patient discharged Performed By: #### L 100.0100 #### [facility] [address] [place], [address] MCHC Normal 32-36 [facility] Comment on above: Result Comment: Canc elled via OM: Order cancelled - Patient discharged Performed By: #### L 100.0100 #### [facility] [address] [place], [address] MCV Normal 81-99 [facility] Comment on above: Result Comment: Canc elled via OM: Order cancelled - Patient discharged Performed By: #### L 100.0100 #### [facility] [address] [place], [address] NEUT% Normal 47-70 [facility] Comment on above: Result Comment: Canc elled via OM: Order cancelled - Patient discharged Performed By: #### L 100.0100 #### [facility] [address] [place], [address] PLT Normal 150-450 [facility] Comment on above: Result Comment: Canc elled via OM: Order cancelled - Patient discharged Performed By: #### L 100.0100 #### [facility] [address] [place], [address] RBC Normal 4.2-5.4 [facility] Comment on above: Result Comment: Canc elled via OM: Order cancelled - Patient discharged Performed By: #### L 100.0100 #### [facility] [address] [place], [address] RDW CV Normal 11.6-14.6 [facility] Comment on above: Result Comment: Canc elled via OM: Order cancelled - Patient discharged Performed By: #### L 100.0100 #### [facility] [address] [place], [address] RDW SD Normal 35.1-43.9 [facility] Comment on above: Result Comment: Canc elled via OM: Order cancelled - Patient discharged Performed By: #### L 100.0100 #### [facility] [address] [place], [address] WBC Normal 4.4-11.0 [facility] Comment on above: Result Comment: Canc elled via OM: Order cancelled - Patient discharged Performed By: #### L 100.0100 #### [facility] [address] [place], [address] Basic Metabolic Profile (BMP )on 05-30-2024 BUN Normal 7-18 [facility] Comment on above: Result Comment: Canc elled via OM: Order cancelled - Patient discharged Performed By: #### L 500.2500 #### [facility] [address] [place], [address] BUN/CRE Normal 10-20 [facility] Comment on above: Result Comment: Canc elled via OM: Order cancelled - Patient discharged Performed By: #### L 500.2500 #### [facility] [address] [place], [address] CA,Total Normal 8.5-10.1 [facility] Comment on above: Result Comment: Canc elled via OM: Order cancelled - Patient discharged Performed By: #### L 500.2500 #### [facility] [address] [place], [address] CL Normal 98-107 [facility] Comment on above: Result Comment: Canc elled via OM: Order cancelled - Patient discharged Performed By: #### L 500.2500 #### [facility] [address] [place], [address] CO2 Normal 21.0-32.0 [facility] Comment on above: Result Comment: Canc elled via OM: Order cancelled - Patient discharged Performed By: #### L 500.2500 #### [facility] [address] [place], [address] CREAT,SERUM Normal 0.55-1.02 [facility] Comment on above: Result Comment: Canc elled via OM: Order cancelled - Patient discharged Performed By: #### L 500.2500 #### [facility] [address] [place], [address] EST GFR Normal >60 [facility] Comment on above: Result Comment: Canc elled via OM: Order cancelled - Patient discharged Performed By: #### L 500.2500 #### [facility] [address] [place], [address] EST GFR - AA Normal >60 [facility] Comment on above: Result Comment: Canc elled via OM: Order cancelled - Patient discharged Performed By: #### L 500.2500 #### [facility] [address] [place], [address] GAP Normal 5-15 [facility] Comment on above: Result Comment: Canc elled via OM: Order cancelled - Patient discharged Performed By: #### L 500.2500 #### [facility] [address] [place], [address] GLU Normal 74-106 [facility] Comment on above: Result Comment: Canc elled via OM: Order cancelled - Patient discharged Performed By: #### L 500.2500 #### [facility] [address] [place], [address] Potassium Normal 3.5-5.1 [facility] Comment on above: Result Comment: Canc elled via OM: Order cancelled - Patient discharged Performed By: #### L 500.2500 #### [facility] [address] [place], [address] Basic Metabolic Profile (BMP) Normal 136-145 [facility] Comment on above: Result Comment: Canc elled via OM: Order cancelled - Patient discharged Performed By: #### L 500.2500 #### [facility] [address] [place], [address] CBC W/Diff, Automatedon 08-2 Absolute Neut Normal 2.0-7.7 [facility] Comment on above: Result Comment: Canc elled via OM: Order cancelled - Patient discharged Performed By: #### L 100.0100 #### [facility] [address] [place], [address] HCT Normal 37-47 [facility] Comment on above: Result Comment: Canc elled via OM: Order cancelled - Patient discharged Performed By: #### L 100.0100 #### [facility] [address] [place], [address] HGB Normal 12.0-15.0 [facility] Comment on above: Result Comment: Canc elled via OM: Order cancelled - Patient discharged Performed By: #### L 100.0100 #### [facility] [address] [place], [address] MCH Normal 27.0-32.0 [facility] Comment on above: Result Comment: Canc elled via OM: Order cancelled - Patient discharged Performed By: #### L 100.0100 #### [facility] [address] [place], [address] MCHC Normal 32-36 [facility] Comment on above: Result Comment: Canc elled via OM: Order cancelled - Patient discharged Performed By: #### L 100.0100 #### [facility] [address] [place], [address] MCV Normal 81-99 [facility] Comment on above: Result Comment: Canc elled via OM: Order cancelled - Patient discharged Performed By: #### L 100.0100 #### [facility] [address] [place], [address] NEUT% Normal 47-70 [facility] Comment on above: Result Comment: Canc elled via OM: Order cancelled - Patient discharged Performed By: #### L 100.0100 #### [facility] [address] [place], [address] PLT Normal 150-450 [facility] Comment on above: Result Comment: Canc elled via OM: Order cancelled - Patient discharged Performed By: #### L 100.0100 #### [facility] [address] [place], [address] RBC Normal 4.2-5.4 [facility] Comment on above: Result Comment: Canc elled via OM: Order cancelled - Patient discharged Performed By: #### L 100.0100 #### [facility] [address] [place], [address] RDW CV Normal 11.6-14.6 [facility] Comment on above: Result Comment: Canc elled via OM: Order cancelled - Patient discharged Performed By: #### L 100.0100 #### [facility] [address] [place], [address] RDW SD Normal 35.1-43.9 [facility] Comment on above: Result Comment: Canc elled via OM: Order cancelled - Patient discharged Performed By: #### L 100.0100 #### [facility] [address] [place], [address] WBC Normal 4.4-11.0 [facility] Comment on above: Result Comment: Canc elled via OM: Order cancelled - Patient discharged Performed By: #### L 100.0100 #### [facility] [address] [place], [place], [address] BMP with eGFRon 05-19-2024 AGE 74 years Normal [facility] Comment on above: Performed By: #### 2 [id number] #### [facility],[address] [place] [address] Anion gap [Moles/Vol] 13 mmol/L Normal 10 - 20 [facility] Comment on above: Performed By: #### 2 [id number] #### [facility],[address] [place] [address] BMP with eGFR Normal [facility] Comment on above: Result Comment: BASI C METABOLIC PANEL Performed By: #### 2 [id number] #### [facility],[address] [place] [address] Calcium [Mass/Vol] 9.0 mg/dL Normal 8.5 - 10.1 [facility] Comment on above: Performed By: #### 2 92325 #### [facility],[address] [place] [address] Chloride [Moles/Vol] 105 mmol/L Normal 98 - 107 [facility] Comment on above: Performed By: #### 2 [id number] #### [facility],[address] [place] [address] 13147 CO2 [Moles/Vol] 25.7 mmol/L Normal 21.0 - 32.0 [facility] Comment on above: Performed By: #### 2 07949 #### [facility],[address] [place] [address] 19824 Creatinine [Mass/Vol] 0.81 mg/dL Normal 0.55 - 1.02 [facility] Comment on above: Performed By: #### 2 76597 #### [facility],[address] [place] [address] 70714 GFR/1.73 sq M.predicted among non-blacks MDRD (S/P/Bld) [Vol rate/Area] mL/min/{1.73_m2} Normal 60 - 999 [facility] Comment on above: Performed By: #### 2 [id number] #### [facility],[address] [place] [address] 93273 Result Comment: ACCO RDING TO THE NATIONAL KIDNEY DISEASE EDUCATION PROGRAM(NKDE), A NORMAL eGFR IS A VALUE GREATER THAN OR EQUAL TO 60 ML/MIN/1.73 SQ METERS. CHRONIC KIDNEY DISEASE: <60mL/MIN/1.73 SQ METERS KIDNEY FAILURE: <15mL/MIN/1.73 SQ METERS THIS TEST SHOULD ONLY BE USED FOR PATIENTS 18 YEARS OF AGE AND OLDER. Glucose [Mass/Vol] 167 mg/dL High 74 - 106 [facility] Comment on above: Performed By: #### 2 [id number] #### [facility],[address] [place] [address] 47875 Potassium [Moles/Vol] 4.1 mmol/L Normal 3.5 - 5.1 [facility] Comment on above: Performed By: #### 2 66726 #### [facility],[address] [place] [address] 78590 Sodium [Moles/Vol] 140 mmol/L Normal 136 - 145 [facility] Comment on above: Performed By: #### 2 77234 #### [facility],[address] [place] [address] 08408 Urea nitrogen [Mass/Vol] 21 mg/dL High 7 - 18 [facility] Comment on above: Performed By: #### 2 43747 #### [facility],[address] [place] [address] 13935 HEMOGLOBIN A1C (POM)on 05-19 Glucose [Mass/Vol] 157.1 mg/dL High 0.0 - 0.0 [facility] Comment on above: Result Comment: BLDo HEMOGLOBIN A1C REFERENCE RANGESBLDo Suggested Diagnosis HbA1c(%) HbA1C (mmol/mol Diabetic >/=6.5 >/=48 Prediabetes 5.7 - 6.4 39 - 47 Normal <5.7 <39 Performed By: #### 2 91558 #### [facility],[address] [place] [address] 41789 HbA1c (Bld) [Mass fraction] 7.1 % High 0.0 - 6.5 [facility] Comment on above: Performed By: #### 2 40931 #### [facility],[address] [place] [address] 99420 LIPID PROFILEon 05-19-2024 Cholesterol [Mass/Vol] 149 mg/dL Normal 0 - [address] [facility] Comment on above: Performed By: #### 2 66833 #### [facility],[address] [place] [address] 68178 Cholesterol in HDL [Mass/Vol] 55 mg/dL Normal 40 - 60 [facility] Comment on above: Performed By: #### 2 14672 #### [facility],[address] [place] [address] 08450 Cholesterol in LDL [Mass/Vol] 74 mg/dL Normal 0 - 129 [facility] Comment on above: Performed By: #### 2 63608 #### [facility],[address] [place] [address] 63741 Cholesterol.total/Chol esterol in HDL [Mass ratio] 2.7 {ratio} Normal 0.0 - 5.0 [facility] Comment on above: Performed By: #### 2 72840 #### [facility],[address] [place] [address] 29592 Lipid 1996 panel Normal [facility] Comment on above: Result Comment: LIPI D PROFILE Performed By: #### 2 07046 #### [facility],[address] [place] [address] 70306 Triglyceride [Mass/Vol] 99 mg/dL Normal 0 - 150 [facility] Comment on above: Performed By: #### 2 65154 #### [facility],[address] [place] [address] SGOT (AST)on 05-19-2024 AST [Catalytic activity/Vol] 18 U/L Normal 13 - 39 [facility] Comment on above: Performed By: #### 2 24143 #### [facility],[address] [place], [place] [address] SGPT (ALT)on 05-19-2024 ALT [Catalytic activity/Vol] 18 U/L Normal 16 - 63 [facility] Comment on above: Performed By: #### 2 83814 #### [facility],[address] [place], [place] [address] Glucose Glucometer (BldC) [M ass/Vol]on 06-17-2022 Glucose [Mass/Vol] 143 mg/dL 74-106 [facility] Work Phone: Comment on above: MANAGEMENT OF PATIEN T CARE PER NURSING PROTOCOL No Panel Informationon 04-23 Stool Calprotectin 186 ug/g 0-120 [facility] Work Phone: Comment on above: Concentration Interp retation Follow-Up<16 - 50 ug/g Normal None>50 -120 ug/g Borderline Re-evaluate in 4-6 weeks >120 ug/g Abnormal Repeat as clinically indicatedPerformed at: - [facility] [address] [id number] Director: Anna Dominguez MD, Phone: [phone] Absolute lymphocyte counton 04-19-2022 Lymphocytes Auto (Unsp spec) [#/Vol] 1.90 10*3/uL 0.83-4.51 [facility] Work Phone: Albumin Elph [Mass/Vol]on Albumin [Mass/Vol] 3.8 g/dL 2.9-4.4 [facility] Work Phone: Atypical perinuclear antineu trophil cytoplasmic antibodies measurementon 04-19-2022 Neutrophil cytoplasmic Ab.perinuclear.atypica l IF (S) [Titer] <1:20 titer Neg:<1:20 [facility] Work Phone: Comment on above: The atypical pANCA p attern has been observed in asignificant percentage of patients with ulcerative colitis,primary sclerosing cholangitis and autoimmune hepatitis.Performed at: - [facility] [id number] Director: Сергей Berry PhD, Phone: [phone] at: [facility] [id number] Director: Anna Dominguez MD, Phone: [phone] Basophil percentageon 2021 Basophil percentage < 0.2 AI 0.0-0.9 [facility] Work Phone: Basophils/100 WBC (Bld) 0.7 % 0-1 [facility] Work Phone: Bilirubin [Mass/Vol] 0.40 mg/dL 0.20-1.00 [facility] Work Phone: Comment on above: For patients on eltr ombopag therapy, use of Dimension [place] TBIL is not recommended. Chloride [Moles/Vol] 109 mmol/L 98-107 [facility] Work Phone: Eosinophils/100 WBC (Bld) 2.1 % 0-5 [facility] Work Phone: Glucose [Mass/Vol] 141 mg/dL 74-106 [facility] Work Phone: Comment on above: Fasting Glucose resu lt greater than or equal to 126 mg/dL suggests DIABETES MELLITUS per A.D.A. criteria. Neutrophils (Bld) [#/Vol] 6.0 10*3/uL 2.0-7.7 [facility] Work Phone: Neutrophils/100 WBC (Bld) 68.8 % 47-70 [facility] Work Phone: Potassium [Moles/Vol] 4.1 mmol/L 3.5-5.1 [facility] Work Phone: Protein [Mass/Vol] 7.1 g/dL 6.4-8.2 [facility] Work Phone: Sodium [Moles/Vol] 140 mmol/L 136-145 [facility] Work Phone: WBC (Bld) [#/Vol] 8.8 10*3/uL 4.4-11.0 [facility] Work Phone: [phone] Blood erythrocytes count (nu mber/volume)on 04-19-2022 RBC (Bld) [#/Vol] 4.11 10*6/uL 4.2-5.4 [facility] Work Phone: Blood hemoglobin measurement (mass/volume)on 04-19-2022 Hemoglobin (Bld) [Mass/Vol] 13.4 g/dL 12.0-15.0 [facility] Work Phone: Blood lymphocytes/100 leukoc yteson 04-19-2022 Lymphocytes/100 WBC (Bld) 21.7 % 19-41 [facility] Work Phone: Blood monocytes/100 leukocyt eson 04-19-2022 Monocytes/100 WBC (Bld) 6.5 % 0-10 [facility] Work Phone: Blood platelet mean volumeon 04-19-2022 Platelet mean volume (Bld) [Entitic vol] 11.1 fL 6.2-12.0 [facility] Work Phone: Determination of erythrocyte mean corpuscular volume (MCV)on 04-19-2022 MCV (RBC) [Entitic vol] 100.0 fL 81-99 [facility] Work Phone: Erythrocyte sedimentation ra rolan 04-19-2022 ESR (Bld) [Velocity] 18 mm/h 0-30 [facility]: Hematocrit Auto (Bld) [Volum e fraction]on 04-19-2022 Hematocrit (Bld) [Volume fraction] 41.1 % 37-47 [facility] Work Phone: [phone] Interpretation of serum or p lasma protein pattern by immunofixation (narrative resulton 04-19-2022 Protein Fractions Immunofixation Anurag [Interp] See comment [facility] Work Phone: [phone] Comment on above: Result: Not Observed Laboratory - Chemistry and C hemistry - challengeon 04-19-2022 ALP [Catalytic activity/Vol] 66 U/L 45-117 [facility] Work Phone: ALT [Catalytic activity/Vol] 21 U/L 13-56 [facility] Work Phone: CO2 [Moles/Vol] 27.0 mmol/L 21.0-32.0 [facility] Work Phone: [phone] Urea nitrogen/Creatinine [Mass ratio] 36.9 mg/mg 10-20 [facility] Work Phone: [phone] Laboratory - Hematology and Cell countson 04-19-2022 Erythrocyte distribution width (RBC) [Entitic vol] 45.8 fL 35.1-43.9 [facility] Work Phone: [phone] Erythrocyte distribution width (RBC) [Ratio] 12.5 % 11.6-14.6 [facility] Work Phone: [phone] Immature granulocytes/100 WBC (Bld) 0.200 % 0.0-0.9 [facility] Work Phone: [phone] Comment on above: IG% - Immature Granu locytes (promyelocytes, myelocytes and metamyelocytes) > 1% indicates that a LEFT SHIFT is Present. MCH (RBC) [Entitic mass] 32.6 pg 27.0-32.0 [facility] Work Phone: [phone] Nucleated RBC/100 WBC (Bld) [Ratio] 0 % 0-5 [facility] Work Phone: [phone] MCHC Auto (RBC) [Mass/Vol]on 04-19-2022 MCHC (RBC) [Mass/Vol] 32.6 g/dL 32-36 [facility] Work Phone: No Panel Informationon 04-19 Addendum Document Comment . [facility] Work Phone: Comment on above: Protein electrophore sis scan will follow via computer,mail, or heat treat supervisor delivery. Centromere B Antibody <0.2 AI 0.0-0.9 [facility] Work Phone: Endomysial IgA Antibody Negative Negative [facility] Work Phone: Estimated GFR (MDRD) Amer 121 mL/min >60 [facility] Work Phone: Comment on above: GFR Calc Estimated GFR (MDRD) Non-Af Amer 100 mL/min >60 [facility] Work Phone: Comment on above: Non- GFR Calc Immunoglobulin E 50 IU/mL 6-495 [facility] Work Phone: MUSIC JOURNALIST Antibody <0.2 AI 0.0-0.9 [facility] Work Phone: Platelets bldon 04-19-2022 Platelets (Bld) [#/Vol] 242 10*3/uL 150-450 [facility] Work Phone: Serum DNA double strand anti body assay (units/volume)on 04-19-2022 DNA double strand Ab Qn (S) [IU]/mL 0-9 [facility] Work Phone: Comment on above: Negative <5 Equivoca l 5 - 9 Positive >9 Serum Antoinette-1 antibody assay (u nits/volume)on 04-19-2022 Antoinette-1 extractable nuclear Ab Qn (S) <0.2 AI 0.0-0.9 [facility] Work Phone: Serum Scl-70 extractable nuc lear antibody assay (units/volume)on 04-19-2022 SCL-70 extractable nuclear Ab Qn (S) <0.2 AI 0.0-0.9 [facility] Work Phone: Serum Mendes extractable nucl ear antibody detectionon 04-19-2022 Mendes extractable nuclear Ab Ql (S) <0.2 AI 0.0-0.9 [facility] Work Phone: Serum [id number] measu rement by electrophoresison 04-19-2022 Alpha 1 globulin Elph [Mass/Vol] 0.3 g/dL 0.0-0.4 [facility] Work Phone: Alpha 1 globulin Elph [Mass/Vol] 0.9 g/dL 0.4-1.0 [facility] Work Phone: Serum classic neutrophil cyt oplasmic antibody assay (units/volume)on 04-19-2022 Neutrophil cytoplasmic Ab.classic Qn (S) <1:20 titer Neg:<1:20 [facility] Work Phone: Serum globulin measurement ( mass/volume)on 04-19-2022 Globulin (S) [Mass/Vol] 3.0 g/dL 2.2-3.9 [facility] Work Phone: Serum or plasma C reactive p rotein measurement (mass/volume)on 04-19-2022 CRP [Mass/Vol] mg/L 0.0-3.0 [facility] Work Phone: Comment on above: C-Reactive Protein ( CRP) provides useful information for thediagnosis, therapy and monitoring of inflammatory processesand associated diseases. For the evaluation of Relative Riskfor Cardiovascular Disease, a High Sensitivity CRP (HSCRP)should be ordered. Serum or plasma IgA measurem ent (mass/volume)on 04-19-2022 IgA [Mass/Vol] 121 mg/dL 64-422 [facility] Work Phone: Serum or plasma IgG measurem ent (mass/volume)on 04-19-2022 IgG [Mass/Vol] 891 mg/dL [phone] [facility] Work Phone: Serum or plasma IgM measurem ent (mass/volume)on 04-19-2022 IgM [Mass/Vol] 139 mg/dL 26-217 [facility] Work Phone: Serum or plasma albumin mina urement (mass/volume)on 04-19-2022 Albumin [Mass/Vol] 3.6 g/dL 3.2-5.0 [facility] Work Phone: Serum or plasma albumin/glob ulin mass ratioon 04-19-2022 Albumin/Globulin [Mass ratio] 1.0 {ratio} 0.9-2.4 [facility] Work Phone: Serum or plasma beta globuli n measurement by electrophoresis (mass/volume)on 04-19-2022 Beta globulin Elph [Mass/Vol] 0.9 g/dL 0.7-1.3 [facility] Work Phone: Serum or plasma calcium mina urement (mass/volume)on 04-19-2022 Calcium [Mass/Vol] 9.2 mg/dL 8.5-10.1 [facility] Work Phone: Serum or plasma creatinine m easurement (mass/volume)on 04-19-2022 Creatinine [Mass/Vol] 0.62 mg/dL 0.55-1.02 [facility] Work Phone: Comment on above: The validity of the calculated GFR & GFRAA in patients over 70 years has not been determined. Clinical correlation is essential. Serum or plasma gamma globul in measurement by electrophoresis (mass/volume)on 04-19-2022 Gamma globulin Elph [Mass/Vol] 0.9 g/dL 0.4-1.8 [facility] Work Phone: Serum or plasma immunoelectr ophoresis interpretation (nominal result)on 04-19-2022 Interpretation IEP [Interp] Comment . [facility] Work Phone: Comment on above: No monoclonality det ected. Serum or plasma urea nitroge n measurement (mass/volume)on 04-19-2022 Urea nitrogen [Mass/Vol] 23 mg/dL 7-18 [facility] Work Phone: Serum perinuclear neutrophil cytoplasmic antibody titer by immunofluorescenceon 04-19-2022 Neutrophil cytoplasmic Ab.perinuclear IF (S) [Titer] <1:20 titer Neg:<1:20 [facility] Work Phone: Comment on above: The presence of posi tive fluorescence exhibiting P-ANCA orC-ANCA patterns alone is not specific for the diagnosis ofWegener's Granulomatosis (WG) or microscopic polyangiitis.Decisions about treatment should not be based solely onANCA IFA results. The International ANCA Group Consensusrecommends follow up testing of positive sera with both VA-3 and MPO-ANCA enzyme immunoassays. As many as 5% serumsamples are positive only by EIA. Ref. AM J Clin Aeacew9673;111:507-513. Serum tissue transglutaminas e IgA antibody assay (units/volume)on 04-19-2022 tTG IgA Qn (S) <2 U/mL 0-3 [facility] Work Phone: Comment on above: Negative 0 - 3 Weak Positive 4 - 10 Positive >10 Tissue Transglutaminase (tTG) has been identified as the endomysial antigen. Studies have demonstr- ated that endomysial IgA antibodies have over 99% specificity for gluten sensitive enteropathy. Thin prep Papanicolaou smear with manual screeningon 04-19-2022 Thin prep Papanicolaou smear with manual screening 19 U/L 15-37 [facility] Work Phone: Thin prep Papanicolaou smear with manual screening 4 5-15 [facility] Work Phone: Thin prep Papanicolaou smear with manual screening 192 U/L 84-246 [facility] Work Phone: Thin prep Papanicolaou smear with manual screening 1.3 0.7-1.7 [facility] Work Phone: Total protein bloodon 2021 Protein [Mass/Vol] 6.8 g/dL 6.0-8.5 [facility] Work Phone: XR WRIST 3V PA/LAT/OBL LTon 11-21-2021 XR WRIST 3V PA/LAT/OBL LT * * *Final Report* * * DATE OF EXAM: Nov 21 2021 1:36PM CM 5270 - XR WRIST 3V PA/LAT/OBL LT / PROCEDURE REASON: [id number] * * * * Physician Interpretation * * * * PROCEDURE: Left wrist INDICATION: Pain .Pain in Left wrist for 4-6 weeks, getting worse. No specific area, no known trauma. TECHNIQUE: XR WRIST 3V PA/LAT/OBL LT COMPARISON: None FINDINGS: No fractures or dislocations are seen. No significant degenerative or arthritic change is evident. The bones and soft tissues are unremarkable. IMPRESSION: Negative. 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 Transcribe Date/Time: Nov 21 2021 1:45P Dictated by : TALI REYNOLDS MD This examination was interpreted and the report reviewed and electronically signed by: TALI REYNOLDS MD on Nov 21 2021 1:46PM EST [id number] Normal [facility] Hemoglobin A1con 11-09-2021 Glucose [Mass/Vol] 157 mg/dL Normal [facility] Comment on above: Performed By: #### H BA1C #### [facility]ine Lab [address] [place], [place] [address] HbA1c (Bld) [Mass fraction] 7.1 % High 4.3-5.6 [facility] Comment on above: Performed By: #### H BA1C #### [facility] [address] [place], [place] [address] Hemoglobin A1con 10-04-2021 Glucose [Mass/Vol] 154 mg/dL Normal [facility] Comment on above: Performed By: #### H BA1C #### [facility] [address] [place], [place] [address] HbA1c (Bld) [Mass fraction] 7.0 % High 4.3-5.6 [facility] Comment on above: Performed By: #### H BA1C #### [facility] [address] [place], [place] [address] Hemoglobin A1con 07-03-2021 Glucose [Mass/Vol] 157 mg/dL Normal [facility] Comment on above: Performed By: #### H BA1C #### [facility] [address] [place], [place] [address] HbA1c (Bld) [Mass fraction] 7.1 % High 4.3-5.6 [facility] Comment on above: Performed By: #### H BA1C #### [facility] [address] [place], [place] [address] Hemoglobin A1con 04-19-2021 Glucose [Mass/Vol] 169 mg/dL Normal [facility] Comment on above: Performed By: #### H BA1C #### [facility] [address] [place], [place] [address] HbA1c (Bld) [Mass fraction] 7.5 % High 4.3-5.6 [facility] Comment on above: Performed By: #### H BA1C #### [facility] [address] [place], [place] [address] Hemoglobin A1con 02-28-2021 Glucose [Mass/Vol] 169 mg/dL Normal [facility] Comment on above: Performed By: #### H BA1C #### [facility] [address] [place], [place] [address] HbA1c (Bld) [Mass fraction] 7.5 % High 4.3-5.6 [facility] Comment on above: Performed By: #### H BA1C #### [facility] [address] [place], [place] [address] Hemoglobin A1con 12-05-2020 Glucose [Mass/Vol] 169 mg/dL Normal [facility] Comment on above: Performed By: #### H BA1C #### [facility] [address] [place], [place] [address] HbA1c (Bld) [Mass fraction] 7.5 % High 4.3-5.6 [facility] Comment on above: Performed By: #### H BA1C #### [facility] [address] [place] [id number] Office Visiton 05-01-2017 Dietary management education, guidance, and counseling (procedure) yes Invalid Interpretation Code [facility] Work Phone: [phone] Documentation of current medications (procedure) Done Invalid Interpretation Code [facility] Work Phone: [phone] Tobacco use CPHS Never smoker Invalid Interpretation Code [facility] Work Phone: [phone] Office Visiton 02-06-2016 Protein mass conc Done [facility] Work Phone: [phone] Tobacco smoking status NHIS Never smoker [facility] Work Phone: [phone] Lab Report: BGMon 06-22-2014 BGM 167 mg/dL High 70-110 [facility] Work Phone: [phone] GE use only - for LinkLogic import when terms are not otherwise specified 167 mg/dL High 70-110 [facility] Work Phone: [phone] Lab Report: BMPon 06-15-2014 Anion gap 3 mmol/L Low 5-15 [facility] Work Phone: [phone] Anion gap molar conc 3 mmol/L Low 5-15 [facility] Work Phone: [phone] Calcium mass conc 9.4 mg/dL Normal 8.5-10.1 [facility] Work Phone: [phone] Chloride molar conc 101 mmol/L Normal 98-107 [facility] Work Phone: [phone] CO2 32.0 mmol/L Normal 21.0-32.0 [facility] Work Phone: [phone] CO2 ppres (BldV) 32.0 mmol/L Normal 21.0-32.0 [facility] Work Phone: [phone] Creatinine mass conc 0.8 mg/dL Normal 0.6-1.0 [facility] Work Phone: [phone] eGFR (non-black) 93 mL/min/{1.73_m2} Normal >60 [facility] Work Phone: [phone] GFR/1.73 sq M predicted among non-blacks MDRD vol rate/area (S/P/Bld) 77 mL/min/{1.73_m2} Normal >60 [facility] Work Phone: [phone] GFRAA 93 mL/min Normal >60 [facility] Work Phone: [phone] Glucose 214 mg/dL High 70-110 [facility] Work Phone: [phone] Glucose mass conc 214 mg/dL High 70-110 [facility] Work Phone: [phone] Potassium molar conc 3.9 mmol/L Normal 3.5-5.1 [facility] Work Phone: [phone] Sodium molar conc 136 mmol/L Normal 136-145 [facility] Work Phone: [phone] Urea nitrogen mass conc 14 mg/dL Normal 7-18 [facility] Work Phone: [phone] Urea nitrogen/Creatinine mass ratio 17.5 RATIO Normal 10-20 [facility] Work Phone: [phone] Lab Report: CBCDon 4 Absolute Neutrophil count 3.0 X10 3/UL Normal 2.0-7.7 [facility] Work Phone: [phone] ANC 3.0 X10 3/UL Normal 2.0-7.7 [facility] Work Phone: [phone] Basophils/100 leukocytes 0.5 % Normal 0-1 [facility] Work Phone: Basophils/100 WBC (Bld) 0.5 % Normal 0-1 [facility] Work Phone: [phone] Eosinophils/100 leukocytes 4.4 % Normal 0-5 [facility] Work Phone: [phone] Eosinophils/100 WBC (Bld) 4.4 % Normal 0-5 [facility] Work Phone: [phone] Erythrocytes (RBC) 4.28 10*6/uL Normal 4.2-5.4 [facility] Work Phone: [phone] Hematocrit (HCT) 41.5 % Normal 37-47 [facility] Work Phone: [phone] Hematocrit Volume Fraction (Bld) 41.5 % Normal 37-47 [facility] Work Phone: [phone] Hemoglobin mass conc (Bld) 13.8 g/dL Normal 12.0-15.0 [facility] Work Phone: [phone] Lymphocytes/100 leukocytes 34.0 % Normal 19-41 [facility] Work Phone: [phone] Lymphocytes/100 WBC (Bld) 34.0 % Normal 19-41 [facility] Work Phone: [phone] MCH 32.2 pg High 27.0-32.0 [facility] Work Phone: [phone] MCH Entitic mass (RBC) 32.2 pg High 27.0-32.0 [facility] Work Phone: [phone] MCHC 33.3 G/GL Normal 32-36 [facility] Work Phone: [phone] MCHC mass conc (RBC) 33.3 G/GL Normal 32-36 [facility] Work Phone: [phone] MCV 97.0 fL Normal 81-99 [facility] Work Phone: [phone] MCV Entitic volume (RBC) 97.0 fL Normal 81-99 [facility] Work Phone: [phone] Monocytes/100 leukocytes 9.7 % Normal 0-10 [facility] Work Phone: [phone] Monocytes/100 WBC (Bld) 9.7 % Normal 0-10 [facility] [facility] Work Phone: [phone] Neutrophils/100 leukocytes 51.2 % Normal 47-70 [facility] Work Phone: [phone] Neutrophils/100 WBC (Bld) 51.2 % Normal 47-70 [facility] Work Phone: [phone] Platelet mean volume Entitic volume (Bld) 11.2 fL Normal 6.2-12.0 [facility] Work Phone: [phone] Platelets 229 10*3/mm3 Normal 150-450 [facility] Work Phone: [phone] Platelets #/vol (Bld) 229 10*3/mm3 Normal 150-450 [facility] Work Phone: [phone] PMV by Steve 11.2 fL Normal 6.2-12.0 [facility] Work Phone: [phone] RBC #/vol (Bld) 4.28 10*6/uL Normal 4.2-5.4 [facility] Work Phone: [phone] WBC #/vol (Bld) 5.9 10*3/uL Normal 4.4-11.0 [facility] Work Phone: [phone] WBC (Leukocytes) 5.9 10*3/uL Normal 4.4-11.0 [facility] Work Phone: [phone] Culture, urine Bacteria identified Cx Nom (U) Culture exhibits no growth. [facility] Work Phone: Vital Signs Date Time Vital Sign Value Performing Clinician Facility 06-17-2022 07:26-0400 Body temperature 98 [degF] Dr. Alissa Mai Work Phone: [facility] Work Phone: 06-17-2022 07:26-0400 Diastolic blood pressure 78 mm[Hg] Dr. Alissa Mai Work Phone: [facility] Work Phone: 06-17-2022 07:26-0400 Heart rate 67 /min Dr. Alissa Mai Work Phone: [facility] Work Phone: 06-17-2022 07:26-0400 Respiratory rate 16 /min Dr. Alissa Mai Work Phone: [facility] Work Phone: 06-17-2022 07:26-0400 SaO2% (BldA) [Mass fraction] 95 % Dr. Alissa Mai Work Phone: [facility] Work Phone: 06-17-2022 07:26-0400 Systolic blood pressure 127 mm[Hg] Dr. Alissa Mai Work Phone: [facility] Work Phone: 06-17-2022 05:52-0400 Body height 162.[address] Alissa Mai Work Phone: [facility] Work Phone: 06-17-2022 05:52-0400 Body mass index (BMI) [Ratio] 30.2 kg/m2 Dr. Alissa Mai Work Phone: [facility] Work Phone: 06-17-2022 05:52-0400 Body weight [address] Alissa Mai Work Phone: [facility] Work Phone: 05-30-2022 09:36-0400 Body height 162.[address] Alissa Mai Work Phone: [facility] Work Phone: 05-30-2022 09:35-0400 Body mass index (BMI) [Ratio] 31 kg/m2 Dr. Alissa Mai Work Phone: [facility] Work Phone: 05-30-2022 09:35-0400 Body weight 82.[address] Alissa Mai Work Phone: [facility] Work Phone: 05-30-2022 09:35-0400 Diastolic blood pressure 70 mm[Hg] Dr. Alissa Mai Work Phone: [facility] Work Phone: 05-30-2022 09:35-0400 Systolic blood pressure 144 mm[Hg] Dr. Alissa Mai Work Phone: [facility] Work Phone: 04-19-2022 10:04-0400 Body mass index (BMI) [Ratio] 30.7 kg/m2 Dr. Alissa Mai Work Phone: [facility] Work Phone: 04-19-2022 10:04-0400 Body weight 81.[address] Alissa Mai Work Phone: [facility] Work Phone: 04-19-2022 10:04-0400 Diastolic blood pressure 76 mm[Hg] Dr. Alissa Mai Work Phone: [facility] Work Phone: 04-19-2022 10:04-0400 Heart rate 68 /min Dr. Alissa Mai Work Phone: [facility] Work Phone: 04-19-2022 10:04-0400 SaO2% (BldA) [Mass fraction] 96 % Dr. Alissa Mai Work Phone: [facility] Work Phone: 04-19-2022 10:04-0400 Systolic blood pressure 156 mm[Hg] Dr. Alissa Mai Work Phone: [facility] Work Phone: 01-13-2015 10:21-0400 BMI (Body Mass Index) 31.24 kg/m2 [facility] Work Phone: 01-13-2015 10:21-0400 Weight 82.56 kg [facility] Work Phone: 09-21-2013 13:36-0500 BP Diastolic 74 mm[Hg] [facility] Work Phone: 09-21-2013 13:36-0500 BP Systolic 119 mm[Hg] [facility] Work Phone: 09-21-2013 13:36-0500 Pulse (Heart Rate) 75 /min [facility] enter [facility] Work Phone: 02-15-2013 15:04-0400 Body Temperature 98 [degF] [facility] Work Phone: 02-15-2013 15:04-0400 BSA (Body Surface Area) 1.89 m2 [facility] Work Phone: 02-15-2013 15:04-0400 Height 162.56 cm [facility] Work Phone: 02-15-2013 15:04-0400 Respiratory Rate 18 /min [facility] Work Phone: Encounters Encounter Date Encounter Type Care Provider Facility Start: 05-31-2025 ambulatory Saida Mcdonald ty:[facility] Start: 04-21-2025 End: 04-21-2025 ambulatory [facility] Start: 04-20-2025 ambulatory Dante L [facility] Start: 04-20-2025 ambulatory Dante L [facility] Start: 04-12-2025 End: 04-12-2025 ambulatory 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 [facility] Start: 04-04-2025 ambulatory Dante L [facility] Start: 04-04-2025 ambulatory Dante L [facility] Start: 03-31-2025 ambulatory Dante L [facility] Start: 03-28-2025 End: 03-28-2025 ambulatory JOEY Boateng [facility] Start: 03-21-2025 ambulatory Fabian Iverson [facility] Start: 03-07-2025 ambulatory [facility]ian PHELPS [facility] Start: 03-02-2025 ambulatory Fabian PHELPS [facility] Start: 02-09-2025 End: 04-13-2025 ambulatory FABIAN IVERSON [facility] Start: 01-13-2025 End: 01-13-2025 ambulatory ALISSA MAI [facility] Start: 01-12-2025 End: 01-12-2025 ambulatory ALISSA MAI [facility] Start: 01-07-2025 ambulatory Fabian PHELPS [facility] Start: 01-03-2025 ambulatory ALISSA Boateng [facility] Start: 12-14-2024 End: 12-14-2024 ambulatory Alissa Mai Facility:[facility] Start: 11-05-2024 End: 11-05-2024 ambulatory ALISSA MAI [facility] Start: 10-12-2024 End: 10-12-2024 ambulatory JOEY Boateng [facility] Start: 06-17-2024 End: 06-17-2024 ambulatory Alissa Mai Facility:[facility] Start: 06-14-2024 End: 06-14-2024 ambulatory Butros Latouf Facility:[facility] Start: 06-14-2024 End: 06-14-2024 ambulatory Butros Latouf Facility:[facility] Start: 06-10-2024 ambulatory Virgilio Ballard Facility:[facility] Start: 06-10-2024 End: 06-10-2024 ambulatory Butros Latouf Facility:[facility] Start: 06-03-2024 End: 06-03-2024 ambulatory Butros Latouf Facility:[facility] Start: 05-19-2024 End: 05-19-2024 ambulatory JOEY Boateng [facility] Start: 06-17-2022 Non-patient / Non-visit Dr. Alissa Mai Work Phone: [facility] Start: 06-17-2022 End: 06-17-2022 Admission to same day surgery center Dr. Alissa Mai Work Phone: [facility] Start: 06-17-2022 End: 06-17-[address] Alissa Mai Work Phone: [facility] Work Phone: Start: 05-30-2022 End: 05-30-[address] Alissa Mai Work Phone: [facility] Work Phone: Start: 05-30-2022 End: 05-30-[address] Alissa Mai Work Phone: [facility], Specimen Start: 05-30-2022 End: 05-30-[address] Alissa Mai Work Phone: [facility] Start: 04-23-2022 End: 04-23-[address] Alissa Mai Work Phone: [facility] Spec[facility] Start: 04-19-2022 End: 04-19-[address] Alissa Mai Work Phone: [facility] Start: 04-19-2022 End: 04-19-[address] Alissa Mai Work Phone: [facility] Gastroenterology Procedures Date Procedure Procedure Detail Performing Clinician Start: 06-17-[address] Alissa Mai Work Phone: Start: 02-06-2016 End: 02-06-2016 Dietary management education, guidance, and counseling Danielle Fofana Lactoferrin measurement Dr. Alissa Mai Work Phone: Urine culture Dr. Alissa quinn Work Phone: Plan of Treatment Date Care Activity Detail Author Start: 06-17-2022 Patient discharge [facility] Work Phone: Start: 05-07-2017 End: 05-07-2017 Occupational Therapy General Occupational Therapy [facility], [address] [place] [address], [id number] [facility] Work Phone: Start: 05-01-2017 End: 05-01-2017 X-ray exam of finger(s) X-Ray, Fingers [facility] Work Phone: Start: 05-01-2017 End: 05-01-2017 X-ray exam of wrist X-Ray, Wrist [facility] Work Phone: Start: 10-31-2015 End: 10-31-2015 X-ray exam, knee, 4 or more X-Ray, Knee [facility] Work Phone: Start: 01-13-2015 End: 01-13-2015 Mri jnt of lwr extre w/o dye MRI Joint Lower Extremity [facility] Work Phone: Start: 02-15-2013 End: 02-15-2013 *CD4 - T Cells, Absolute CD4 Count *CD4 - T Cells, Absolute CD4 Count [facility] Work Phone: Start: 02-15-2013 End: 02-15-2013 *CDIF - Clostridium Diff. Toxin Stool *CDIF - Clostridium Diff. Toxin Stool [facility] Work Phone: Start: 02-15-2013 End: 02-15-2013 *CMP Complete Metabolic Panel *CMP Complete Metabolic Panel [facility] Work Phone: Start: 02-15-2013 End: 02-15-2013 *MISC - Miscellaneous Lab Test #1 *MISC - Miscellaneous Lab Test #1 [facility] Work Phone: Start: 02-15-2013 End: 02-15-2013 C reactive protein (hsCRP) *CRP - C-Reative Protein [facility] Work Phone: Start: 02-15-2013 End: 02-15-2013 Erythrocyte sedimentation rate *Sedimentation Rate (ESR) [facility] Work Phone: MG Breast - bilatera l Screening [facility] Work Phone: Patient referral [facility] Work Phone: Payers Date Payer Category Payer Self-pay [id number] 2008 Private Health Insurance [id number] 1950 Unknown [id number] 2.16.8 [id number] 1950 Unknown [id number] 2.16.8 40.1.588025.3.579.2.651 1950 Unknown [id number] 2.16.8 40.1.299149.3.579.2.651 1950 Unknown [id number] 2.16.8 40.1.840464.3.579.2.651 1950 Unknown [id number] 2.16.8 40.1.920970.3.579.2.651 1950 Unknown [id number] 2.16.8 40.1.091532.3.579.2.651 1950 Unknown [id number] 2.16.8 40.1.115369.3.579.2.65 1950 Unknown [id number] 2.16.8 40.1.729033.3.579.2.1 1950 Unknown [id number] 2.16.8 40.1.319362.3.579.2.1 1950 Unknown [id number] 2.16.8 40.1.878832.3.579.2.1 1950 Unknown [id number] 2.16.8 40.1.664668.3.579.2.651 1950 Unknown [id number] 2.16.84 0.1.031653.3.579.2.131 1950 Unknown [id number] 2.16.84 0.1.725485.3.579.2.131 1950 Unknown [id number] 2.16.84 0.1.493541.3.579.2.131 1950 Unknown [id number] 2.16.84 0.1.290881.3.579.2.131 1950 Unknown [id number] 2.16.84 0.1.109906.3.579.2.1314 Unknown [id number] 2.16.8 40.1.710120.3.579.2.462 Unknown [id number] 2.16.8 40.1.884554.3.579.2.462 Unknown [id number] 2.16.8 40.1.603380.3.579.2.462 Unknown [id number] 2.16.8 40.1.606230.3.579.2.462 Unknown [id number] 2.16.8 40.1.834405.3.579.2.462 Unknown [id number] 2.16.8 40.1.877659.3.579.2.462 Unknown [id number] 2.16.8 40.1.562031.3.579.2.462 Unknown [id number] 2.16.8 40.1.772910.3.579.2.462 Social History Date Type Detail Facility Start: 05-30-2022 End: 06-12-2022 Tobacco smoking status NHIS Unknown if ever smoked [facility] Work Phone: Start: 03-13-[address] [facility] Work Phone: Start: 1950 Sex Assigned At Female W [facility] Work Phone: Goals Date Patient Goal Desired Activity /State Mental Status Date Assessment Result Facility 06-17-2022 Cognitive function Voice/Name [facility] Work Phone: Progress note 11-21-2021 Note Date & Type Note Facility 11-21-2021 Note HNO ID: [id number] Author: SHAMEKA Nguyen Service: Radiology Author Type: Technologist Type: Progress Notes Filed: 11/21/2021 1:37 PM Note Text: Radiology Service Progress Note PATIENT NAME: Greer Cabrera DATE OF SERVICE: November 21, 2021 TIME: 1:36 PM PATIENT IDENTITY VERIFICATION COMPLETED USING TWO (2) IDENTIFIERS: Name and Date of confirmed by patient verbally. FALL SCREENING: Has the patient had 2 falls in the last year or 1 fall with injury or currently using an Ambulatory Assistive Device (Walker, Cane, Wheelchair, Crutches, etc.)? No PATIENT GENDER DATA: Female. status: : No status: NO. PATIENT RELEVANT IMPLANT DATA REVIEWED: Not Applicable RADIOLOGY DEPARTMENT: General X-ray: Exam(s) Completed: Upper Extremity X-Ray(s): Wrist, left PERIPHERAL IV DATA: Not applicable SIGNED BY: SHAMEKA Nguyen November 21, 2021 1:[address] [facility] Evaluation note Note Date & Type Note Facility Evaluation note Diagnosis Onset Date Diverticular disease acute Nocturia more than twice per night acute Encounter for routine gyneco logical examination noneactive [facility] Work Phone: Summary Purpose Family History No Family History Records Found Relationship Condition Age at Onset Recorded Date/T ashwin grandfather Diabetes mellitus Unknown father Malignant neoplasm of colon Unknown mother Malignant neoplasm of cervix Unknown brother Chronic obstructive pulmonary disease Unk nown Advance Directives No Advanced Directives Records Found Advance Directive Response Recorded Date/ Time Advance Directives Yes January 12 4:46pm Living Will Yes January 13, 2020 4:46pm Power of Chart Computer Yes January 12 4:46pm Advance Directive Response Recorded Date/ Time Name of Medical Power of Chart Computer NEPHEW June 12, 2022 8:44am Advance Directives Yes January 12 4:46pm Living Will Yes June 12 8:44am Power of Chart Computer Yes June 12, 2022 8:44am Chief Complaint and Reason for Visit Chief Complaint DIVERTICULITIS E-ORDER 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) Reason for Visit Diverticular disease Nocturia more than twice per night Encounter for routine gynecological examination Additional Source Comments INFORMATION SOURCE (unrecogn ized section and content) DATE CREATED AUTHOR 11/10/2021 [facility] DATE CREATED AUTHOR AUTHOR'S ORGANIZ ATION 11/22/[address] [facility] DATE CREATED AUTHOR AUTHOR'S ORGANIZ ATION 04/17/2025 [facility] DATE CREATED AUTHOR AUTHOR'S ORGANIZ ATION 04/23/2025 [facility] DATE CREATED AUTHOR AUTHOR'S ORGANIZ ATION 04/23/2025 [facility] DATE CREATED AUTHOR AUTHOR'S ORGANIZ ATION 04/24/2025 [facility] DATE CREATED AUTHOR AUTHOR'S ORGANIZ ATION 05/29/2025 [facility] Goals (unrecognized section and content) Goals may be documented in a n alternate section FOR RECORDS PERTAINING TO PATIENTS WHO ARE OR HAVE BEEN ENROLLED IN A CHEMICAL DEPENDENCY/SUBSTANCEABUSE PROGRAM, SOME INFORMATION MAY BE OMITTED. This clinical summary was aggregated from multiple sources. Caution should be exercised in using it in the provision of clinical care. This summary normalizes information from multiple sources, and as a consequence, information in this document may materially change the coding, format and clinical context of patient data. In addition, data may be omitted in some cases. CLINICAL DECISIONS SHOULD BE BASED ON THE PRIMARY CLINICAL RECORDS. [facility]. provides no warranty or guarantee of the accuracy or completeness of information in this document.
--- NOTE | 2025-05-31 06:40 | MRI_ITS ---
PROCEDURE: BRAIN W/WO CONTRAST; MRA HEAD ONLY WITHOUT CONTRAST 05/31/2025 REASON FOR EXAM: PARESTHESIA OF SKIN TECHNIQUE: BRAIN W/WO CONTRAST; MRA HEAD ONLY WITHOUT CONTRAST Multiplanar and multisequence images were obtained. CONTRAST: Clariscan VOLUME: 17 mL COMPARISON: None. FINDINGS: There is no abnormal intracranial contrast enhancement. There is a normal sulcal pattern and gyral configuration. There is no evidence of acute intracranial hemorrhage or infarction. The henry-white differentiation is well preserved. There is no evidence of restricted diffusion. The ventricles and basilar cisterns are normal. There are normal flow voids demonstrated in the recognized intracranial vessels. The cerebellum and brainstem are unremarkable. The cerebellar pontine angles are normal. The craniovertebral junction is normal. The sella and suprasellar regions are normal. The orbits and retro-orbital regions are unremarkable. There is S shaped nasal septal deviation. There is a right-sided nasal spur. 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 There is no significant paranasal sinus disease. The mastoid air cells are clear. There is normal bone marrow signal in the skull base and calvarium. MRA head: There are no intracranial aneurysms, intracranial vascular malformations or arterial stenoses. 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 The vertebral arteries are codominant. MRI/Brain W/WO Contrast IMPRESSION: 1. No evidence of intracranial pathology. 2. Normal MR angiography of the [id number]. Reading Location: [id number]
--- NOTE | 2025-05-31 06:40 | MRI_ITS ---
PROCEDURE: BRAIN W/WO CONTRAST; MRA HEAD ONLY WITHOUT CONTRAST 05/31/2025 REASON FOR EXAM: PARESTHESIA OF SKIN TECHNIQUE: BRAIN W/WO CONTRAST; MRA HEAD ONLY WITHOUT CONTRAST Multiplanar and multisequence images were obtained. CONTRAST: Clariscan VOLUME: 17 mL COMPARISON: None. FINDINGS: There is no abnormal intracranial contrast enhancement. There is a normal sulcal pattern and gyral configuration. There is no evidence of acute intracranial hemorrhage or infarction. The henry-white differentiation is well preserved. There is no evidence of restricted diffusion. The ventricles and basilar cisterns are normal. There are normal flow voids demonstrated in the recognized intracranial vessels. The cerebellum and brainstem are unremarkable. The cerebellar pontine angles are normal. The craniovertebral junction is normal. The sella and suprasellar regions are normal. The orbits and retro-orbital regions are unremarkable. There is S shaped nasal septal deviation. There is a right-sided nasal spur. 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 There is no significant paranasal sinus disease. The mastoid air cells are clear. There is normal bone marrow signal in the skull base and calvarium. MRA head: There are no intracranial aneurysms, intracranial vascular malformations or arterial stenoses. 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 The vertebral arteries are codominant. MRI/MRA Head ONLY without Contrast IMPRESSION: 1. No evidence of intracranial pathology. 2. Normal MR angiography of the [id number]. Reading Location: [id number]
--- NOTE | 2025-05-31 06:40 | MRI_ITS ---
PROCEDURE: MRA NECK WITH AND W/O CONTRAST 05/31/2025 REASON FOR EXAM: PARESTHESIA OF SKIN TECHNIQUE: Neck MRA using 2D and 3D Time of Flight technique and with intravenous gadolinium-based contrast. CONTRAST: Clariscan VOLUME: 17 mL IV. COMPARISON: Brain MRI of 05/31/2025. FINDINGS: No area of significant stenosis or obstruction is seen. No concerning anomaly is evident. MRI/MRA Neck WITH and W/O Contrast IMPRESSION: Negative examination. Reading Location: [place] [id number]
== END | disposition home or self-care (01) ==
LOC: OPMRI 06:19
PROVIDERS: PCP Student in an Organized Health Care Education/Training Program; Referring Provider Nurse Practitioner Acute Care; Visit Provider Nurse Practitioner Acute Care
DX: R20.2 Paresthesia of skin (principal)
CPT/HCPCS: 70544; 70549; 70553

== ENCOUNTER → 2025-06-28 | Outpatient (CLI) | payer MEDICARE, SELFPAY ==
[2025-06-28 12:46] LABS: Hematocrit 42.6 % (37-47); Hemoglobin 14.0 g/dL (12.0-15.0); Mean Corp Hgb Conc 32.9 g/dL (32-36); Mean Corpuscular Volume 98.8 fL (81-99); Mean Platelet Vol. 11.5 fl (6.2-12.0); Platelet Count 217 K/mm3 (150-450); RBC Distribution Width CV 11.8 % (11.6-14.6); RBC Distribution Width SD 43.0 fl (35.1-43.9); Red Blood Count 4.31 M/mm3 (4.2-5.4); White Blood Count 5.5 K/mm3 (4.4-11.0)
[2025-06-28 13:38] LABS: AST(SGOT) 20 U/L (<=31); Alanine Aminotransfer ALT/SGPT 12 U/L (<=34); Albumin, Serum 4.2 g/dL (3.4-4.8); Alkaline Phosphatase 72 U/L (35-104); Anion Gap 10 (5-15); BUN 25 mg/dL (4-19); BUN/Creat Ratio 30.8 RATIO (10-20); Calcium,Total 9.5 mg/dL (7.6-11.0); Carbon Dioxide 25.8 mmol/L (21.0-32.0); Chloride 104 mmol/L (98-108); Globulin 2.8 g/dL (2.2-4.2); Glucose 112 mg/dL (70-99); Magnesium 2.5 mg/dL (1.5-2.2); Potassium 4.4 mmol/L (3.3-5.1); Vitamin B12 622 pg/mL (180-914)
[2025-06-30 12:09] LABS: Vitamin D 1,25-Dihydroxy 49.7 pg/mL (24.8-81.5)
[2025-07-02 17:08] LABS: Folate, Hemolysate Test 485.0 ng/mL (Not Estab.); Folate, RBC (Hct) Test 43.4 % (34.0-46.6); Folates, RBC Test 1118 ng/mL (>498); VITAMIN B6 25.6 ug/L (3.4-65.2); Vitamin B1, Thiamine 100.8 nmol/L (66.5-200.0)
== END | disposition home or self-care (01) ==
LOC: MTLAB 10:26
PROVIDERS: PCP Student in an Organized Health Care Education/Training Program; Referring Provider Psychiatry & Neurology Neurology; Visit Provider Psychiatry & Neurology Neurology
DX: G31.84 Mild cognitive impairment of uncertain or unknown etiology (principal); I10 Essential (primary) hypertension; E78.5 Hyperlipidemia, unspecified; G62.9 Polyneuropathy, unspecified
CPT/HCPCS: 36415; 80053; 82607; 82652; 82747; 83735; 83883; 84207; 84425; 84439; 84443; 85014; 85027

== ENCOUNTER → 2025-07-11 | Outpatient (CLI) | payer MEDICARE, SELFPAY ==
[2025-07-14 15:09] LABS: Albumin 3.8 g/dL (2.9-4.4); Gamma Globulin 1.2 g/dL (0.4-1.8); Immunoglobulin A 113 mg/dL (64-422); Immunoglobulin G 1170 mg/dL (586-1602); Immunoglobulin M 142 mg/dL (26-217); PROEL- TOTAL PROTEIN 7.2 g/dL (6.0-8.5)
== END | disposition home or self-care (01) ==
LOC: MTLAB 14:43
PROVIDERS: PCP Student in an Organized Health Care Education/Training Program; Referring Provider Psychiatry & Neurology Neurology; Visit Provider Psychiatry & Neurology Neurology
DX: G62.9 Polyneuropathy, unspecified (principal)
CPT/HCPCS: 36415; 82784; 84165; 86334; 86335